=== PATIENT | female | born 1945 | race Caucasian/White ===

== ENCOUNTER 2024-06-20 12:50 | Outpatient (AMB) | payer MEDICARE, OTHER, SELFPAY ==
--- NOTE | 2024-06-20 12:53 | HO.SPINEOV ---
Vital Signs 06/20/24 13:02 Height 5 ft 5 in Weight 135 lb BMI 22.5 Intake Visit Reasons: lumbar radiculopathy Intake Note: Ms. Powell is here today c/o Low back pain. [employer] Required: No Allergies codeine Allergy (Severe, Verified 06/20/24 13:03) Confusion nitrofurantoin [From Macrobid] Allergy (Severe, Verified 06/20/24 13:03) Confusion Physical Exam Vital Signs: BMI result Body Mass Index 22.5 Assessment & Plan Assessment & Plan (1) Lumbar degenerative disc disease: Code(s): M51.369 - Other intervertebral disc degeneration, lumbar region without mention of lumbar back pain or lower extremity pain Category: Medical Plan Dear Dr Villa, Thank you for referring Mrs Powell to our office today. She is a very nice 78-year-old female presents to the office today for evaluation of chronic low back pain. The pain localizes itself over the lower lumbar region and radiates out laterally. She has a history of osteoarthritis, both hips and both shoulders replaced. She tells me that the pain started sometime around COVID in 2019 when her gym shut down and she had to become more less homebound because of lack of activities and options to go outside and exercise. At that time, the pain was manageable but now it has escalated to the point to when she is up and around doing things she is okay, but any bending activities or prolonged standing results in significant back pain. Also, she can be out walking and do her normal 3 mi walk, but when she goes to sit down she feels tremendous amounts of pain. She will also get pain that shoots down the front of her legs into her anterior tibial region toward the top of her foot. She can also get some tingling in her right leg as well. She saw Dr. Rodríguez at [facility] who told her he could go into a clean-up of some of the osteophytes but could not help her back pain. The back pain is the main pain generator for her a so she was somewhat frustrated at the conversation. She has been doing conservative management in the form of physical therapy, Celebrex medication trials, and cortisone injections. The cortisone injections were done at [facility] [employer] [facility]. It sounds like they did facet blocks and they were helpful for some time. She had an MRI done at [facility] in March showing stable degenerative disc disease at L4-5 and L5-S1. PMH: She is very healthy for her age, she is a bit of hypothyroidism, history of osteoarthritis with bilateral hip replacement, bilateral shoulder replacement, replacement of her thumb joint on the left hand, carpal tunnel surgery. Denies any history of heart attacks, strokes, vascular disease, pulmonary disease, liver or kidney problems, coagulopathy, cancer etc.. Social hx: She does use some CBD drops to help with the pain but does not smoke marijuana, use any THC gummies, tobacco or alcohol Medications: Levothyroxine, Celebrex, dicyclomine and amitriptyline Allergies: Macrobid and codeine Physical exam: Awake alert oriented no acute distress, she will stand up out of a chair on her own independently, ambulate around the room independently, strength and reflexes normal Imaging review: Lumbar MRI done at [facility] in March 2024 showing severe disc collapse at L4-5 with what appeared to be anterior bridging osteophytes, unable to tell if there is a complete fusion of the segment or not. She also has moderate to severe degeneration of the L5-S1 disc space. There is right L5 foraminal narrowing. There is no significant central canal narrowing. Impression: 78-year-old female history of osteoarthritis, has had progressively worsening lower lumbar pain radiating out to both sides now going on for maybe 5 years or more, steadily getting worse. There is a component of pain going down her anterior thighs into her anterior tibial region in the top of her feet. If she is up walking around she is okay but standing for any length of time or bending forward gives her tremendous amounts of pain. Also, when she is out walking and she finishes and sits down she will feel pain and fatigue in her legs. The patient was frustrated because her quality of life is suffering as she just wants to be more active but this set of symptoms does not allow her to do all the things she wants to do. She was seen at [facility] and offered what sounds like foraminotomy/decompression, but was told that it would not affect her back pain which is the main symptom that brings her to the office today. As above she has been through numerous rounds of conservative treatment. I reviewed her MRI and it does show severe disc collapse at L4-5 and to a slightly lesser degree L5-S1. There is straightening of the normal lordosis of the lumbar spine. It looks like there maybe an anterior bridging osteophyte at L4-5, it is not clear to me that this is not already auto fused. This needs investigating a little bit further, so I will order a noncontrast lumbar CT. Also, since so much of her pain is generated with flexed posture I will get standing flexion-extension x-rays. Once these things are done, I will see the patient back in the office with Dr. Sharma in evaluate to see if she is a surgical candidate. Thank you for allowing us to care for your patient. The total time spent with this visit with this patient was 45 minutes reviewing history, physical exam, lumbar imaging review, and implementation of treatment plan or further diagnostic testing Kendall Sharma MD,PhD [facility] Orders: Orders XR lumbar spine 4V min Today M51.369 - Other intervertebral disc degeneration, lumbar region without mention of lumbar back pain or lower extremity pain CT lumbar spine wo IV con Today M51.369 - Other intervertebral disc degeneration, lumbar region without mention of lumbar back pain or lower extremity pain Coding Level of Care Code New Pt Level 4 (50066) Diagnoses Lumbar degenerative disc disease M51.369
[2024-06-20 13:02] VITALS: BMI 22.5
--- OUTSIDE RECORDS SUMMARY | 2024-06-20 14:57 | XMS_ITS | Encounter Summary ---
Author Organization [facility] Address [address] [place] [address] Phone Care Team Providers Care Applications Support Specialist Name Role Phone Aida Gallardo DO Primary Care Provider [phone] Aida Gallardo DO Primary Care Provider Brenda Villa MD Primary Care Provider + Enrico Wagner MD Unavailable Brenda Villa MD Unavailable Brenda Villa MD Primary Care Provider + Encounter Details Date Type Department Care Team (Late st Contact Info) Description 05/08/2020 Ancillary Orders [facility] Department [address] [place] [id number] Abner Pabon, DO [address] [place] [phone] [email or web address] Pain in right hip Social History Tobacco Use Types Packs/Day Years Used Date Smoking Tobacco: Never Smokeless Tobacco: Never Sex and Gender Information Value Date Recorded Sex Assigned at Not on file Gender Identity Not on file Sexual Orientation Not on file documented as of this encounter Plan of Treatment Upcoming Encounters Date Type Department Care Team (Late Contact Info) Description 04/21/2025 10:15 AM EST Appointment [facility], Bone [address] [address] Brenda Villa MD [address] [place] [address], [address] [place] [address] [email or web address] documented as of this encounter Results * XR HIP 2 VW RIGHT PLUS PELVIS (05/10/2020 11:58 AM EST) Anatomical Region Laterality Modality Hip, Pelvis Computed Radiogr aphy 05/10/2020 12:1 8 PM EST Impressions 05/10/2020 12:20 PM EST 1.No finding to account for right hip pain. 2.Stable severe lower lumbar spine disc disease. Narrative 05/10/2020 12:20 PM EST HISTORY: ??As above. COMPARISON: SI joint x-rays 02/10/2018. RIGHT HIP/PELVIC RADIOGRAPH FINDINGS: 3 images obtained. Chronic osteopenia. Stable bilateral total hip replacements. Normal alignment. No evidence of loosening. Stable severe L4-5 and L5-S1 disc disease with facet arthropathy. No acute fracture or destructive bone lesions. No soft tissue swelling. Procedure Note Enrico Garcia MD - 05/10/2020 HISTORY: As above. COMPARISON: SI joint x-rays 02/10/2018. RIGHT HIP/PELVIC RADIOGRAPH FINDINGS: 3 images obtained. Chronic osteopenia. Stable bilateral total hip replacements. Normalalignment. No evidence of loosening. Stable severe L4-5 and L5-S1 discdisease with facet arthropathy. No acute fracture or destructive bonelesions. No soft tissue swelling. IMPRESSION: 1.No finding to account for right hip pain. 2.Stable severe lower lumbar spine disc disease. Abner Pabon DO IMG XR PELVIS documented in this encounter Visit Diagnoses Diagnosis Pain in right hip Pain in right hip documented in this encounter Care Teams Applications Support Specialist Relationship Specialty Start Date End Date Aida Gallardo DO [address] [place] [phone] [email or web address] PCP - General Internal Medicine 01/29/17 05/19/21 Aida Gallardo DO [address] [place] [phone] [email or web address] PCP - General Internal Medicine 05/20/21 06/03/21 Brenda Villa MD [address] [place] [phone] PCP - General Family Medicine 06/04/21 08/18/23 Brenda Villa MD [address] [place] [address] [address] [place] [address] PCP - General Family Medicine 08/19/23 Enrico Wagner MD [address] [place] [id number] [email or web address] 07/02/21 Brenda Villa MD [address] [place] [address] [address] [place] [address] [email or web address] Insurance Assigned Provider 07/11/23 documented as of this encounter Additional Source Comments The information contained in this document represents components of the legal health record. It is not the complete legal health record.[facility]
--- OUTSIDE RECORDS SUMMARY | 2024-06-20 14:57 | XMS_ITS | Referral Summary ---
Author Organization [facility] Address [address] [place] [address] Care Team Providers Care Attendance Officer Name Role Phone Aida Gallardo Primary Care Provider [phone] Allergies Active Allergy Reactions Criticality Noted Date Comments Codeine Nausea 06/01/2018 Nitrofurantoin Monohyd/M-Cryst Fever 08/08 Medications amitriptyline (ELAVIL) 10 mg tablet 1 tablet qd Active celecoxib (CeleBREX) 100 mg capsule TAKE 2 CAPSULES (200 MG TOTAL) BY MOUTH 2 (TWO) TIMES A DAY. 3 9 Active vitamin D3 1,000 unit capsule Take 1 capsule by mouth daily. Active dicyclomine (BENTYL) 10 mg capsule Take 10 mg by mouth daily. Active levothyroxine (SYNTHROID, LEVOTHROID) 50 mcg tablet Take 1 tablet by mouth daily. Active multivitamin,tx -iron-minerals tablet Take 1 tablet by mouth daily. Active safflower oil-linoleic acid,co 1,000 mg capsule Take 1,000 capsules by mouth daily. Active VITAMIN B COMPLEX ORAL Take 1 tablet by mouth daily. Active levothyroxine (SYNTHROID, LEVOTHROID) 25 mcg tablet Take 25 mcg by mouth daily. 1 Active triamcinolone acetonide (KENALOG) 0.025% cream PLEASE SEE ATTACHED FOR DETAILED DIRECTIONS 1 Active Active Problems Problem Noted Date Diagnosed Date Lumbar spondylosis 06/25/2021 Primary osteoarthritis of both hips 03/29/2019 Primary osteoarthritis of both shoulders 019 Social History Tobacco Use Types Packs/Day Years Used Date Smoking Tobacco: Never Smokeless Tobacco: Never Alcohol Use Standard Drinks/Week Comments Yes 0 (1 standard drink = 0.6 oz pur e alcohol) rare Comments Unknown Sex and Gender Information Value Date Recorded Sex Assigned at Female 10/28/2020 10:03 AM EDT Legal Sex Female 6:44 AM EDT Gender Identity Female 10/28/2020 10:03 AM EDT Sexual Orientation Straight 10/28/2020 10 :03 AM EDT Last Filed Vital Signs Vital Sign Reading Time Taken Comments Blood Pressure - - Pulse - - Temperature 36.2 ??C (97.2 ??F) 10/31/2020 1:38 PM ED T Respiratory Rate - - Oxygen Saturation - - Inhaled Oxygen Concentration - - Weight 66.7 kg (147 lb) 06/25/2021 1:21 PM EDT Height 166.6 cm (5' 5.6 ) 06/25/2021 1:21 PM EDT Body Mass Index 24.02 06/25/2021 1:21 PM EDT Plan of Treatment Not on file Insurance MEDICARE [facility] MEDICARE Care Teams Attendance Officer Relationship Specialty Start Date End Date Aida Gallardo [address] [place] [phone] PCP - General Internal Medicine 02/09/19
--- OUTSIDE RECORDS SUMMARY | 2024-06-20 14:57 | XMS_ITS | Clinical Summary ---
Author Organization [facility] Address [address] [place] [address] Care Team Providers Care Pot Annealer Name Role Phone Aida Gallardo Primary Care Provider [phone] Allergies Active Allergy Reactions Criticality Noted Date [...] 06/25/2021 1:21 PM EDT Plan of Treatment Health Maintenance Due Date Last Done Comments Hepatitis C Screening 1945 Medicare AWV 1945 Osteoporosis Screening 1994 Zoster Vaccines (1 of 2) 1994 RSV Vaccine (60+ years old and patients) (1 - 1-dose 75+ series) 11/06/2019 COVID-19 Vaccine ( - season) 2023 02/06/2021, 06/14/2020, 05/17/2020 Influenza Vaccine (#1) 2023 2, 01/05/2021, 01/09/2020, Additional history exists Alcohol/Substance Use Screening 04/06/2024 Depression Screening and Follow-Up 04/06/2024 Health Care Proxy Review 04/06/2024 Social Drivers of Health Annual Screening 04/06/2024 DTaP,Tdap,and Td Vaccines (3 - Td or Tdap) 06/01/2029 06/01/2019, 04/10/2009, 04/06/1998 Pneumococcal Vaccine: 50+ Years Completed 01/29/2022 Hepatitis B Vaccines Aged Out No long er eligible based on patient's age to complete this topic Insurance MEDICARE [facility] [address] MEDICARE Care Teams Pot Annealer Relationship Specialty Start Date End Date Aiad Gallardo [address] [place] [phone] PCP - General Internal Medicine 02/09/19
--- OUTSIDE RECORDS SUMMARY | 2024-06-20 14:57 | XMS_ITS | Encounter Summary ---
Author Organization [facility] Address [address] [place] [address] Phone Care Team Providers Care Data Analytics Specialist Name Role Phone Enrico Wagner MD Unavailable Brenda Villa MD Unavailable [phone] Brenda Villa MD Primary Care Provider + Encounter Details Date Type Department Care Team (Latest Contact Info) Description 05/30/2024 1:38 PM EST - 05/30/2024 11:59 PM EST Hospital Encounter [facility] - [address] [place] [address] Brenda Villa MD [address] [place] [address], [facility] [address] [place], [place] [id number] [email or web address] Discharge Disposition: Home or Self Care Social History Tobacco Use Types Packs/Day Years Used Date Smoking Tobacco: Never Smokeless Tobacco: Never Tobacco Cessation:Counseling Given: Not Answered Alcohol Use Standard Drinks/Week Comments Not Currently 0 (1 standard drink = 0.6 oz pure alcohol) I have a drink on my birthday Child or Family Care Answer Date Record ed Do you have problems with on e of the following making it difficult for you to work, study, or receive health care? No 07/01/2021 Education Answer Date Recorded Are you interested in more education? Not on josee e 07/03/2023 Are you concerned about learning? Not on file 07/03/2023 No 07/03/2023 No 07/03/2023 Food Answer Date Recorded Within the past 6 months we worried whether our food would run out before we got money to buy more. Never True 07/01/2021 Within the past 6 months the food we bought just didn't last and we didn't have enough money to get more. Never True Residential Stability Answer Date Recor ded What is your housing situation today? I have verna sing 07/01/2021 How many times have you move d in the past 12 months? Zero (I did not move) 07/01/2021 Paying for Meds Answer Date Recorded Do you have trouble paying for medicines? No 07/01/2021 Paying Utility Bills Answer Date Record ed Do you have trouble paying your heating or elect ricity bill? No 07/01/2021 Transportation Answer Date Recorded Has the lack of transportati on kept you from medical appointments or from getting medications? No 07/01/2021 Unemployment Answer Date Recorded Are you currently unemployed or working on a part-time or temporary basis, and looking for work? I choose not to answer 07/01/2021 Digital Access Answer Date Recorded No 08/30/2022 No 08/30/2022 Reliable internet access at home? Not on file 08/30/2022 Device with a working camera? 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 b complex vitamins tablet Take 1 tablet by mouth daily. BIOTIN ORAL Take 1,000 mcg by mouth daily. celecoxib (CELEBREX) 200 MG capsuleIndications:Polya rticular osteoarthritis TAKE 1 CAPSULE BY MOUTH EVERY DAY 90 capsule 3 04/12/2024 cholecalciferol, vitamin D3, 25 mcg (1,000 unit) capsule Take 1 capsule by mouth daily. ciclopirox (PENLAC) 8 % solutionIndications:Onyc homycosis Apply topically nightly at bedtime. Apply over nail and surrounding skin. Apply daily over previous coat. After seven (7) days, may remove with alcohol and continue cycle. 6.6 mL 5 07/07/2023 dicyclomine (BENTYL) 10 MG capsuleIndications:Irrit able bowel syndrome with both constipation and diarrhea take 1 capsule by mouth every day 90 capsule 3 06/17/2023 levothyroxine (SYNTHROID, LEVOTHROID) 50 MCG tabletIndications:Acquir ed hypothyroidism TAKE 1 TABLET BY MOUTH EVERY DAY 90 tablet 3 05/24/2024 magnesium oxide 500 mg Cap Take 1 tablet by mouth daily. Medication-Free Text Cologen Powder multivitamins with minerals-iron (THERA-VM) Tab Take 1 tablet by mouth daily. omega 3-imq-oxd-fish oil 1,000 mg (120 mg-180 mg) Cap Take 1 capsule by mouth daily. safflower oil-linoleic acid,co 1,000 mg Cap Take 1,000 capsules by mouth daily. triamcinolone acetonide (NASACORT NASL) 1 spray by Nasal route as needed. documented as of this encounter Plan of Treatment Upcoming Encounters Date Type Department Care Team (Late st Contact Info) Description 04/21/2025 10:15 AM EST Appointment [facility], Bone Density - [address] [address] Brenda Villa MD [address] [place] [address], [address] [place] [address] [email or web address] documented as of this encounter Procedures Procedure Name Priority Date/Time Associated Diagnosis Comments BI MAMMOGRAM SCREENING WITH TOMOSYNTHESIS WITH CAD (BILATERAL) Routine 05/30/2024 2:12 PM EST Breast screening documented in this encounter Results * BI MAMMOGRAM SCREENING WITH TOMOSYNTHESIS WITH CAD (BILATERAL) (05/30/2024 2:12 PM EST) Anatomical Region Laterality Modality Breast Left, Breast Right, Breast Bilateral Bila teral Mammography 06/01/2024 8:07 AM EST Impressions 06/01/2024 8:08 AM EST No mammographic evidence of malignancy in either breast. Annual screening mammography is recommended. BI-RADS 1 NEGATIVE The patient will be notified of the results and recommendations. Narrative 06/01/2024 8:08 AM EST BI MAMMOGRAM SCREENING WITH TOMOSYNTHESIS WITH CAD (BILATERAL) Additional patient information: Screening. COMPARISON: Comparison is made with relevant prior imaging. Breast composition: The breast tissue is heterogeneously dense which may obscure small masses. FINDINGS: No abnormal masses, suspicious calcifications, or other significant findings are identified mammographically in either breast. Procedure Note Lelia Polk MD - 06/01/2024 BI MAMMOGRAM SCREENING WITH TOMOSYNTHESIS WITH CAD (BILATERAL) Additional patient information: Screening. COMPARISON: Comparison is made with relevant prior imaging. Breast composition: The breast tissue is heterogeneously dense which mayobscure small masses. FINDINGS: No abnormal masses, suspicious calcifications, or other significantfindings are identified mammographically in either breast. IMPRESSION: No mammographic evidence of malignancy in either breast. Annual screening mammography is recommended. BI-RADS 1 NEGATIVE The patient will be notified of the results and recommendations. Brenda Villa MD IMG MG EXAMS documented in this encounter Visit Diagnoses Diagnosis Breast screening Breast screening, unspecified documented in this encounter Additional Health Concerns Assessment Noted Time PHQ-2 Depression Total Score: 1 01/27/20 22 9:24 AM EDT documented as of this encounter Care Teams Data Analytics Specialist Relationship Specialty Start Date End Date Brenda Villa MD [address] [place] [address], [address] [place] [address] PCP - General Family Medicine 08/19/23 Enrico Wagner MD [email or web address] Consulting Provider Rheumatology 07/02/21 Brenda Villa MD [address] [place] [address], [address] [place] [address] [email or web address] Insurance Assigned Provider 07/11/23 documented as of this encounter Additional Source Comments The information contained in this document represents components of the legal health record. It is not the complete legal health record.[facility]
--- OUTSIDE RECORDS SUMMARY | 2024-06-20 14:57 | XMS_ITS | Encounter Summary ---
Author Organization Located Within [facility] Address [address] [place] [address] Phone Care Team Providers Care Landscaping Specialist Name Role Phone Enrico Wagner MD Unavailable Brenda Villa MD Unavailable [phone] Brenda Villa MD Primary Care Provider + Encounter Details Date Type Department Care Team (Latest Contact Info) Description 06/14/2024 11:19 AM EDT - 06/14/2024 11:59 PM EDT Hospital Encounter [facility] [address] [place] [address] Brenda Villa MD [address] [place] [address], [address] [place], [place] [phone] Discharge Disposition: Home or Self Care Social History Tobacco Use Types Packs/Day Years Used Date Smoking Tobacco: Never Smokeless Tobacco: Never Alcohol Use Standard Drinks/Week Comments Not Currently [...] your housing situation today? I have verna menjivar 07/01/2021 How many times have you move [...] and continue cycle. 6.6 mL 5 07/07/2023 clobetasol (TEMOVATE) 0.05 % ointmentIndications:Onyc hoschizia Apply topically 2 (two) times a day as needed (hand rash). 60 g 1 06/10/2024 dicyclomine (BENTYL) 10 MG capsuleIndications:Irrit able bowel [...] Take 1 tablet by mouth daily. omega 7-jul-jhm-fish oil 1,000 mg (120 mg-180 mg) Cap Take 1 capsule by mouth daily. safflower oil-linoleic acid,co 1,000 mg Cap Take 1,000 capsules by mouth daily. triamcinolone acetonide (NASACORT NASL) 1 spray by Nasal route as needed. documented as of this encounter Plan of Treatment Upcoming Encounters Date Type Department Care Team (Late st Contact Info) Description 04/21/2025 10:15 AM EST Appointment [facility], Bone [address] [address] Brenda Villa MD [address] [place] [address], [address] [place] [address] [email or web address] documented as of this encounter Procedures Procedure Name Priority Date/Time Associated Diagnosis Comments COMPREHENSIVE METABOLIC PANEL Routine 06/14/2024 11:20 AM EDT Encounter for monitoring chronic NSAID therapy CBC AND DIFFERENTIAL Routine 06/14/2024 11:20 AM EDT Encounter for monitoring chronic NSAID therapy documented in this encounter Results * (ABNORMAL) Comprehensive metabolic panel (06/14/2024 11:20 AM EDT) SODIUM 139 133 - 146 mmol/L [facility] POTASSIUM 5.0 3.3 - 5.1 mmol/L [facility] CHLORIDE 104 96 - 108 mmol/L [facility] CO2 30 21 - 35 mmol/L [facility] BUN 29(H) 6 - 19 mg/dL [facility] CREATININE 0.70 0.5 - 1.5 mg/dL [facility] GLUCOSE 95 70 - 99 mg/dL [facility] ALBUMIN 4.3 3.9 - 4.8 g/dL [facility] TOTAL PROTEIN 7.0 6.5 - 8.0 g/dL [facility] CALCIUM 9.4 8.4 - 10.3 mg/dL [facility] ALKALINE PHOSPHATASE 74 39 - 117 U/L [facility] TOTAL BILIRUBIN 0.4 0.0 - 1.2 mg/dL [facility] AST 31 0 - 37 U/L [facility] ALT 21 0 - 40 U/L [facility] GLOBULIN 2.7 1 - 4.8 g/dL [facility] EGFR 88 >59 mL/min/1.7 3m2 [facility] Comment:Estimated glomerular filtration rate calculated using the CKD-EPI refit equation. ANION GAP 10 10 - 20 mmol/L [facility] Blood 06/14/2024 11:2 0 AM EDT 06/14/2024 11:22 AM EDT Brenda Villa MD LAB BLOOD ORDERA BLES Performing Organization Address City/State/[facility] Co de Phone Number [address] [address] * CBC and differential (06/14/2024 11:20 AM EDT) WBC 8.58 4.00 - 11.00 K/uL [facility] RBC 4.62 4.00 - 5.20 M/uL [facility] HGB 14.3 12.0 - 16.0 g/dL [facility] HCT 43.7 36.0 - 46.0 % [facility] PLT 224 150 - 450 K/uL [facility] MCV 94.6 80.0 - 100.0 fL [facility] MCH 31.0 27.0 - 31.0 pg [facility] MCHC 32.7 32.0 - 36.0 g/dL [facility] RDW 12.9 11.5 - 14.5 % [facility] MPV 10.7 8.4 - 12.0 fL [facility] NRBC 0.00 0.00 /100 WBCs [facility] ABSOLUTE NRBC 0.00 0.00 K/uL [facility] DIFF METHOD Auto [facility] NEUTS 54.9 48.0 - 76.0 % [facility] LYMPHS 32.9 18.0 - 41.0 % [facility] MONOS 7.6 4.0 - 11.0 % [facility] EOS 3.3 0.0 - 5.0 % [facility] BASOS 1.0 0.0 - 1.5 % [facility] Granulocytes, immature (%) 0.3 0.0 - 0.9 % [facility] ABSOLUTE NEUTS 4.71 1.92 - 7.60 K/uL [facility] ABSOLUTE LYMPHS 2.82 0.72 - 4.10 K/uL [facility] ABSOLUTE MONOS 0.65 0.16 - 1.10 K/uL [facility] ABSOLUTE EOS 0.28 0.00 - 0.50 K/uL [facility] ABSOLUTE BASOS 0.09 0.00 - 0.15 K/uL [facility] Granulocytes, immature 0.03 0.00 - 0.09 K/uL [facility] Blood 06/14/2024 11:2 0 AM EDT 06/14/2024 11:22 AM EDT Brenda Villa MD LAB BLOOD ORDERA BLES [facility] [address] [place], [place] [id number] documented in this encounter Visit Diagnoses Diagnosis Encounter for monitoring chronic NSAID therapy documented in this encounter Additional Health Concerns Assessment Noted Time PHQ-2 Depression Total Score: 1 01/27/20 22 9:24 AM EDT documented as of this encounter Care Teams Landscaping Specialist Relationship Specialty Start Date End Date Brenda Villa MD [address] [place] [address] [email or web address] - General Family Medicine 08/19/23 Enrico Wagner MD [email or web address] Consulting Provider Rheumatology 07/02/21 Brenda Villa MD [address] [place] [address] [email or web address] Insurance Assigned Provider 07/11/23 documented as of this encounter Additional Source Comments The information contained in this document represents components of the legal health record. It is not the complete legal health record.Located Within [facility]
--- OUTSIDE RECORDS SUMMARY | 2024-06-20 14:57 | XMS_ITS | Encounter Summary ---
Author Organization [facility] Address [address] [place] [address] Phone Care Team Providers Care Phlebotomist Associate Name Role Phone Aida Gallardo DO Primary Care Provider Aida Gallardo DO Primary Care Provider [phone] Brenda Villa MD Primary Care Provider + Enrico Wagner MD Unavailable Brenda Villa MD Unavailable Brenda Villa MD Primary Care Provider + Reason for Referral * MRI/CAT Scan - Closed Specialty Diagnoses / Procedures Referred By Quentin khan Referred To Contact Radiology Diagnoses Radiculopathy, lumbar region Procedures MRI Lumbar Spine Abner Pabon, DO [address] [place] [address] Referral ID Status Reason Start Date Expiration Date Visits Re quested Visits Authorized [id number] Closed 04/04/2020 04/04/2021 1 1 Encounter Details Date Type Department Care Team (Latest Contact Info) Description 04/04/2020 Transcribe Orders Virtual Department [address] [place] [address] Abner Pabon, DO [address] [place] [phone] [email or web address] Radiculopathy, lumbar region (Primary Dx) Social History Tobacco Use Types Packs/Day Years Used Date Smoking Tobacco: Never Smokeless Tobacco: Never Sex and Gender Information Value Date Recorded Sex Assigned at Not on file Gender Identity Not on file Sexual Orientation Not on file documented as of this encounter Plan of Treatment Upcoming Encounters Date Type Department Care Team (Late st Contact Info) Description 04/21/2025 10:15 AM EST Appointment [facility], Bone Density [address] [address] Brenda Villa MD [address] [place] [address], [facility] [address] [place] [address] [email or web address] documented as of this encounter Results * XR LUMBOSACRAL SPINE 4 OR MORE VIEWS (04/10/2020 12:34 PM EST) Anatomical Region Laterality Modality L-spine Radiographic Racheal ging 04/10/2020 1:02 PM EST Narrative 04/10/2020 1:09 PM EST TECHNIQUE: XR LUMBOSACRAL SPINE 4 OR MORE VIEWS CLINICAL HISTORY: Chronic lower back pain. FINDINGS: There is minimal bi-convex lumbar scoliosis. There are no lumbar vertebral body compression fractures. There is severe loss of height of the L4-L5 and L5-S1 intervertebral disc spaces, with moderately large anterior vertebral endplate osteophytes and small posterior vertebral endplate osteophytes. There is minimal L4 on L5 vertebral body degenerative retrolisthesis. There is moderate to severe L4-L5 and L5-S1 level facet arthropathy with bilateral neural foraminal narrowing. There are partly visualized hip joint replacements. Please see separate report for lumbar spine MRI examination performed on this same date. CONCLUSION: Mild biconvex lumbar scoliosis. Severe loss of height L4-L5 and L5-S1 intervertebral disc spaces. L4-L5 and L5-S1 level facet arthropathy with moderate to severe bilateral neural foraminal narrowing. Procedure Note Isaias Diamond MD - 04/10/2020 TECHNIQUE: XR LUMBOSACRAL SPINE 4 OR MORE VIEWS CLINICAL HISTORY: Chronic lower back pain. FINDINGS: There is minimal bi-convex lumbar scoliosis. There are no lumbar vertebral body compression fractures. There is severe loss of height of the L4-L5 and L5-S1 intervertebral discspaces, with moderately large anterior vertebral endplate osteophytes andsmall posterior vertebral endplate osteophytes. There is minimal L4 on L5 vertebral body degenerative retrolisthesis. There is moderate to severe L4-L5 and L5-S1 level facet arthropathy withbilateral neural foraminal narrowing. There are partly visualized hip joint replacements. Please see separate report for lumbar spine MRI examination performed onthis same date. CONCLUSION: Mild biconvex lumbar scoliosis. Severe loss of height L4-L5 and L5-S1 intervertebral disc spaces. L4-L5 and L5-S1 level facet arthropathy with moderate to severe bilateralneural foraminal narrowing. Abner Pabon DO IMG XR SPINE * MRI LUMBAR SPINE (NEURO) WITHOUT CONTRAST (04/10/2020 11:51 AM EST) Anatomical Region Laterality Modality L-spine Magnetic Resonan ce 04/10/2020 11:5 8 AM EST Narrative 04/10/2020 12:18 PM EST TECHNIQUE: MRI LUMBAR SPINE (NEURO) WITHOUT CONTRAST CLINICAL HISTORY: Lower back pain. Pain radiating to right lower extremity and left lower extremity. Numbness and tingling bilateral feet. COMPARISON: Lumbar spine MRI examination dated 06/17/2018. FINDINGS: Conus medullaris is normal. There are no lumbar vertebral body compression fractures. There is degenerative decreased water content of lumbar intervertebral discs and there is mild lower lumbar levoconvex scoliosis. L1 and L2 levels: Minimal posterior disc bulges. Mild facet arthropathy. L3-4 level: No interval change in mild grade 1 L3 and L4 vertebral body degenerative anterolisthesis and small broad-based posterior and slightly left posterior lateral disc protrusion with mild impression upon the thecal sac and contact with extraforaminal left L3 nerve root. Moderate facet arthropathy with mild central canal stenosis. Moderate bilateral neural foraminal narrowing with encroachment upon exiting left L3 nerve root. There is severe loss of height of L4-L5 and L5-S1 intervertebral disc spaces, as on the comparison exam, with moderate degenerative irregularities adjacent vertebral endplates and mild to moderate increase in reactive degenerative bone marrow edema of corresponding vertebral bodies. L4-5 level: No interval change in mild L4 on L5 vertebral body retrolisthesis which along with small posterior vertebral endplate osteophyte and small posterior disc protrusion results in mild to moderate flattening mass effect on the thecal sac. Moderate facet arthropathy without central canal stenosis, although with mild narrowing of lateral recess. Moderate right greater than left neural foraminal narrowing with bilateral encroachment upon exiting intraforaminal L4 nerve roots. L5-S1 level: Small broad-based posterior disc protrusion and posterior vertebral endplate osteophyte with mild impression upon the thecal sac, entering in contact with S1 nerve root sleeves. Severe right and moderate left arthropathy with mild narrowing of lateral recesses without definite compression of proximal S1 nerve roots. Severe bilateral neural foraminal narrowing with bilateral compression of exiting intraforaminal L5 nerve roots. Moderate reactive bone marrow edema of right L5 pedicle. No definite evidence of lumbar spondylolysis. 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 CONCLUSION: Moderately severe lumbar spondylosis with severe loss of height of L4-L5 and L5- S1 intervertebral disc spaces, without interval change since the comparison examination dated 06/17/2018. L5-S1 level: Small posterior disc protrusion and posterior vertebral endplate osteophyte. Severe right and moderate left facet arthropathy. Severe neural foraminal narrowing. L4-5 level: Mild L4 and L5 vertebral body with retrolisthesis and small posterior disc protrusion and osteophyte with mild to moderate impression upon the thecal sac. Moderate facet arthropathy with mild narrowing of lateral recesses. Moderate right greater than left neural foraminal narrowing. Additional findings, as described. Procedure Note Isaias Diamond MD - 04/10/2020 TECHNIQUE: MRI LUMBAR SPINE (NEURO) WITHOUT CONTRAST CLINICAL HISTORY: Lower back pain. Pain radiating to right lower extremityand left lower extremity. Numbness and tingling bilateral feet. COMPARISON: Lumbar spine MRI examination dated 06/17/2018. FINDINGS: Conus medullaris is normal. There are no lumbar vertebral body compressionfractures. There is degenerative decreased water content of lumbar intervertebraldiscs and there is mild lower lumbar levoconvex scoliosis. L1 and L2 levels: Minimal posterior disc bulges. Mild facet arthropathy. L3-4 level: No interval change in mild grade 1 L3 and L4 vertebral bodydegenerative anterolisthesis and small broad-based posterior and slightlyleft posterior lateral disc protrusion with mild impression upon thethecal sac and contact with extraforaminal left L3 nerve root. Moderatefacet arthropathy with mild central canal stenosis. Moderate bilateralneural foraminal narrowing with encroachment upon exiting left L3 nerveroot. There is severe loss of height of L4-L5 and L5-S1 intervertebral discspaces, as on the comparison exam, with moderate degenerativeirregularities adjacent vertebral endplates and mild to moderate increasein reactive degenerative bone marrow edema of corresponding vertebralbodies. L4-5 level: No interval change in mild L4 on L5 vertebral bodyretrolisthesis which along with small posterior vertebral endplateosteophyte and small posterior disc protrusion results in mild to moderateflattening mass effect on the thecal sac. Moderate facet arthropathywithout central canal stenosis, although with mild narrowing of lateralrecess. Moderate right greater than left neural foraminal narrowing withbilateral encroachment upon exiting intraforaminal L4 nerve roots. L5-S1 level: Small broad-based posterior disc protrusion and posteriorvertebral endplate osteophyte with mild impression upon the thecal sac,entering in contact with S1 nerve root sleeves. Severe right and moderateleft arthropathy with mild narrowing of lateral recesses without definitecompression of proximal S1 nerve roots. Severe bilateral neural foraminalnarrowing with bilateral compression of exiting intraforaminal L5 nerveroots. Moderate reactive bone marrow edema of right L5 pedicle. No definite evidence of lumbar spondylolysis. 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 CONCLUSION: Moderately severe lumbar spondylosis with severe loss of height of L4-L5and L5- S1 intervertebral disc spaces, without interval change since thecomparison examination dated 06/17/2018. L5-S1 level: Small posterior disc protrusion and posterior vertebralendplate osteophyte. Severe right and moderate left facet arthropathy.Severe neural foraminal narrowing. L4-5 level: Mild L4 and L5 vertebral body with retrolisthesis and smallposterior disc protrusion and osteophyte with mild to moderate impressionupon the thecal sac. Moderate facet arthropathy with mild narrowing oflateral recesses. Moderate right greater than left neural foraminalnarrowing. Additional findings, as described. Abner Pabon IMG MR [facility] documented in this encounter Visit Diagnoses Diagnosis Radiculopathy, lumbar region- Primary Thoracic or lumbosacral neuritis or radiculitis, unspecified Radiculopathy, lumbar region Thoracic or lumbosacral neuritis or radiculitis, unspecified Radiculopathy, lumbar region Thoracic or lumbosacral neuritis or radiculitis, unspecified documented in this encounter Care Teams Phlebotomist Associate Relationship Specialty Start Date End Date Aida Gallardo DO [address] [place] [id number] [email or web address] - General Internal Medicine 01/29/17 05/19/21 Aida Gallardo DO [address] [place] [id number] [email or web address] - General Internal Medicine 05/20/21 06/03/21 Brenda Villa MD [address] [place] [phone] [email or web address] PCP - General Family Medicine 06/04/21 08/18/23 Brenda Villa MD [address] [place] [address] [address] [place] [address] [email or web address] PCP - General Family Medicine 08/19/23 Enrico Wagner MD [address] [place] [address] [email or web address] Consult[employer] Provider Rheumatology 07/02/21 Brenda Villa MD [address] [place] [address] [address] [place] [address] [email or web address] Insurance Assigned Provider 07/11/23 documented as of this encounter Additional Source Comments The information contained in this document represents components of the legal health record. It is not the complete legal health record.[facility]
--- OUTSIDE RECORDS SUMMARY | 2024-06-20 14:57 | XMS_ITS | Encounter Summary ---
Author Organization [facility] Address [address] [place] [address] Phone Care Team Providers Care Air Brake Tester Name Role Phone Enrico Wagner MD Unavailable Brenda Villa MD Unavailable Brenda Villa MD Primary Care Provider + Reason for Referral * Consultation (Within 1 month) - Authorized Specialty Diagnoses / Procedures Referred By Contac t Referred To Contact Diagnoses Lumbar radiculopathy, chronic Brenda Villa MD [address] [facility] [address] [place] [address] Email: [email or web address] James Sharma MD [address] [place] [address] Referral ID Status Reason Start Date Expiration Date V isits Requested Visits Authorized [id number] Authorized 06/10/2024 06/10/2025 1 1 Reason for Visit * Reason Comments Follow Up Visit Spine problems Encounter Details Date Type Department Care Team ([facility] st Contact Info) Description 06/10/2024 2:15 PM EST Office Visit [facility] [address] [place], [place] [phone] Brenda Villa MD [address] [facility] 7 [place] [address] [email or web address] Lumbar radiculopathy, chronic (Primary Dx); Onychoschizia; Osteopenia, unspecified location; Encounter for monitoring chronic NSAID therapy Social History Tobacco Use Types Packs/Day Years [...] with a working camera? Not on file 05 / Sex and Gender Information Value Date Recorded Sex Assigned at Not on file Gender Identity Not on file Sexual Orientation Not on file documented as of this encounter Last Filed Vital Signs Vital Sign Reading Time Taken Comments Blood Pressure 136/82 06/10/2024 2:15 PM EST Pulse 52 06/10/2024 2:15 PM EST Temperature 36.1 ??C (97 ??F) 06/10/2024 2:15 PM EST Respiratory Rate - - Oxygen Saturation 100% 06/10/2024 2:15 PM EST Inhaled Oxygen Concentration - - Weight - - Height - - Body Mass Index - - documented in this encounter Progress Notes * Brenda Villa MD - 06/10/2024 2:15 PM EST Chief Complaint Patient presents with Follow Up Visit Spine problems Assessment & Plan: Assessment & Plan Lumbar radiculopathy, chronic Persistent radicular pain Second opinion NS referral placed Orders: Ambulatory referral to External Neurosurgery 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 Osteopenia, unspecified location Discussed osteoporosis and treatment If elevated fracture risk will plan referral to endocrine as pt would prefer to avoid bisphosphonates DEXA re-entered Orders: DXA Monitoring; Future Encounter for monitoring chronic NSAID therapy Orders: Comprehensive metabolic panel; Future CBC and differential; Future Subjective: HPI Back pain: Saw Dr. Rodríguez/GOKUL Concerned about recovery time for his proposed surgicalplan Would like second opinion Dr. Sharma for less invasie options Planing to do more extensive HEP at home on new gym equipment to help manage Did not schedule DEXA. Not sure if she would treat Review of Systems See hPI Objective: Vitals: 06/10/24 1415 BP: 136/82 Pulse: (!) 52 Temp: 36.1 ??C (97 ??F) SpO2: 100% Physical Exam Vitals and nursing note reviewed. Constitutional: General: She is not in acute distress. Appearance: Normal appearance. HENT: Head: Normocephalic and atraumatic. Eyes: General: No scleral icterus. Conjunctiva/sclera: Conjunctivae normal. Pulmonary: Effort: Pulmonary effort is normal. Skin: General: Skin is warm and dry. Neurological: General: No focal deficit present. Mental Status: She is alert and oriented to person, place, and time. Psychiatric: Mood and Affect: Mood normal. Behavior: Behavior normal. I spent a total time of 30 minutes was spent on the care of this patient between gnwa-bh-bblw time and non esop-fe-vqwm care including review of prior records, prior labs and imaging, documentation and coordination of follow up care. documented in this encounter Plan of Treatment Upcoming Encounters Date Type Department Care Team (Late st Contact Info) Description 04/21/2025 10:15 AM EST Appointment [facility], Bone Density [address] [address] Brenda Villa MD [address] [place] [address], [address] [place] [address] [email or web address] Scheduled Orders Name Type Priority Associated Diagnoses Orde r Schedule DXA Monitoring Imaging Routine Osteopenia, unspecified location Expected: 06/24/2024, Expires: 06/10/2026 Scheduled Referrals Name Type Priority Associated Diagnoses Order Schedule Ambulatory referral to External Neurosurgery Outpatient Referral Routine Lumbar radiculopathy, chronic Ordered: 06/10/2024 documented as of this encounter Results * CBC and differential (06/14/2024 11:20 AM EDT) WBC 8.58 4.00 - 11.00 K/uL [facility] RBC 4.62 4.00 - 5.20 M/uL [facility] HGB 14.3 12.0 - 16.0 g/dL [facility] HCT 43.7 36.0 - 46.0 % [facility] PLT 224 150 - 450 K/uL [facility] MCV 94.6 80.0 - 100.0 fL [facility] MCH 31.0 27.0 - 31.0 pg [facility] MCHC 32.7 32.0 - 36.0 g/dL [facility] RDW 12.9 11.5 - 14.5 % [facility] MPV 10.7 8.4 - 12.0 fL [facility] NRBC 0.00 0.00 /100 WBCs [facility] ABSOLUTE NRBC 0.00 0.00 K/uL [facility] DIFF METHOD Auto [facility] NEUTS 54.9 48.0 - 76.0 % [facility] LYMPHS 32.9 18.0 - 41.0 % [facility] MONOS 7.6 4.0 - 11.0 % [facility] EOS 3.3 0.0 - 5.0 % [facility] BASOS 1.0 0.0 - 1.5 % [facility] Granulocytes, immature (%) 0.3 0.0 - 0.9 % [facility] ABSOLUTE NEUTS 4.71 1.92 - 7.60 K/uL [facility] ABSOLUTE LYMPHS 2.82 0.72 - 4.10 K/uL [facility] ABSOLUTE MONOS 0.65 0.16 - 1.10 K/uL [facility] ABSOLUTE EOS 0.28 0.00 - 0.50 K/uL [facility] ABSOLUTE BASOS 0.09 0.00 - 0.15 K/uL [facility] Granulocytes, immature 0.03 0.00 - 0.09 K/uL [facility] Blood 06/14/2024 11:2 0 AM EDT 06/14/2024 11:22 AM EDT Bernda Villa MD LAB BLOOD ORDERA BLES Performing Organization Address City/State/[facility] Co de Phone Number [address] [address] * (ABNORMAL) Comprehensive metabolic panel (06/14/2024 11:20 AM EDT) SODIUM 139 133 - 146 mmol/L [facility] POTASSIUM 5.0 3.3 - 5.1 mmol/L [facility] CHLORIDE 104 96 - 108 mmol/L [facility] CO2 30 21 - 35 mmol/L [facility] BUN 29(H) 6 - 19 mg/dL [facility] CREATININE 0.70 0.5 - 1.5 mg/dL [facility] GLUCOSE 95 70 - 99 mg/dL [facility] ALBUMIN 4.3 3.9 - 4.8 g/dL [facility] TOTAL PROTEIN 7.0 6.5 - 8.0 g/dL [facility] CALCIUM 9.4 8.4 - 10.3 mg/dL [facility] ALKALINE PHOSPHATASE 74 39 - 117 U/L [facility] TOTAL BILIRUBIN 0.4 0.0 - 1.2 mg/dL [facility] AST 31 0 - 37 U/L [facility] ALT 21 0 - 40 U/L [facility] GLOBULIN 2.7 1 - 4.8 g/dL [facility] EGFR 88 >59 mL/min/1.7 3m2 [facility] Comment:Estimated glomerular filtration rate calculated using the CKD-EPI refit equation. ANION GAP 10 10 - 20 mmol/L [facility] Blood 06/14/2024 11:2 0 AM EDT 06/14/2024 11:22 AM EDT Brenda Villa MD LAB BLOOD ORDERA BLES [facility] [address] [place] [address] documented in this encounter Visit Diagnoses Diagnosis Lumbar radiculopathy, chronic- Primary Onychoschizia Other specified disease of nail Osteopenia, unspecified location Encounter for monitoring chronic NSAID therapy documented in this encounter Additional Health Concerns Assessment Noted Time PHQ-2 Depression Total Score: 1 01/27/20 22 9:24 AM EDT documented as of this encounter Care Teams Air Brake Tester Relationship Specialty Start Date End Date Brenda Villa MD [address] [place] [address], [address] [place] [address] PCP - General Family Medicine 08/19/23 Enrico Wagner MD [email or web address] Consult[employer] Provider Rheumatology 07/02/21 Brenda Villa MD [address] [place] [address], [address] [place] [address] [email or web address] Insurance Assigned Provider 07/11/23 documented as of this encounter Additional Source Comments The information contained in this document represents components of the legal health record. It is not the complete legal health record.[facility]
--- OUTSIDE RECORDS SUMMARY | 2024-06-20 14:57 | XMS_ITS | Encounter Summary ---
Author Organization [facility] Address [address] [place] [address] Phone Care Team Providers Care Sap Portal Developer Name Role Phone Aida Gallardo DO Primary Care Provider [phone] Aida Gallardo DO Primary Care Provider [phone] Brenda Villa MD Primary Care Provider + Enrico Wagner MD Unavailable Brenda Villa MD Unavailable Brenda Villa MD Primary Care Provider + Encounter Details Date Type Department Care Team (Late st Contact Info) Description 04/04/2020 Procedure Pass [address] [place] [address] Social History Tobacco Use Types Packs/Day Years Used Date Smoking Tobacco: Never Smokeless Tobacco: Never Sex and Gender Information Value Date Recorded Sex Assigned at Not on file Gender Identity Not on file Sexual Orientation Not on file documented as of this encounter Last Filed Vital Signs Vital Sign Reading Time Taken Comments Blood Pressure - - Pulse - - Temperature - - Respiratory Rate - - Oxygen Saturation - - Inhaled Oxygen Concentration - - Weight 62.6 kg (138 lb) 04/05/2020 8:45 AM EST Height 167.6 cm (5' 6 ) 04/05/2020 8:45 AM EST Body Mass Index 22.27 04/05/2020 8:45 AM EST documented in this encounter Plan of Treatment Upcoming Encounters Date Type Department Care Team (Late st Contact Info) Description 04/21/2025 10:15 AM EST Appointment [facility], Bone Density - [facility] [address] [place] [address] Brenda Villa MD [address] [place] [address], [facility] 7 [place] [address] [email or web address] documented as of this encounter Visit Diagnoses Not on filedocumented in this encounter Care Teams Sap Portal Developer Relationship Specialty Start Date End Date Aida Gallardo DO [address] [place] [id number] [email or web address] PCP - General Internal Medicine 01/29/17 05/19/21 Aida Gallardo DO [address] [place] [phone] [email or web address] PCP - General Internal Medicine 05/20/21 06/03/21 Brenda Villa MD [address] [place] [address] [email or web address] PCP - General Family Medicine 06/04/21 08/18/23 Brenda Villa MD [address] [place] [address] 7 [place] [address] [email or web address] PCP - General Family Medicine 08/19/23 Enrico Wagner MD [address] [place] [address] [email or web address] Provider Rheumatology 07/02/21 Brenda Villa MD [address] [place] [address] 7 [place] [address] [email or web address] Insurance Assigned Provider 07/11/23 documented as of this encounter Additional Source Comments The information contained in this document represents components of the legal health record. It is not the complete legal health record.[facility]
--- OUTSIDE RECORDS SUMMARY | 2024-06-20 14:58 | XMS_ITS | Encounter Summary ---
Author Organization [facility] Address [address] [place] [address] Phone Care Team Providers Care Chief Fundraising Officer Name Role Phone Brenda Villa MD Primary Care Provider + Enrico Wagner MD Unavailable Brenda Villa MD Unavailable [phone] Brenda Villa MD Primary Care Provider + Encounter Details Date Type Department Care Team (Late st Contact Info) Description 01/03/2022 Procedure Pass [facility] - [address] [place] [address] Social History Tobacco Use Types Packs/Day Years [...] Answer Date Recorded Are you interested in help w ith more adult education (for example, completing high school, GED, job training, learning the [place] language, technical skills, or developing parenting skills)? No 07/01/2021 Food Answer Date Recorded Within the past [...] work? I choose not to answer 07/01/2021 Sex and Gender Information Value Date Recorded Sex Assigned at Not on file Gender Identity Not on file Sexual Orientation Not on file documented as of this encounter Plan of Treatment Upcoming Encounters Date Type Department Care Team (Late st Contact Info) Description 04/21/2025 10:15 AM EST Appointment [facility], [address] [address] Brenda Villa MD [address] [place] [address], [facility] 7 [place] [address] [email or web address] documented as of this encounter Visit Diagnoses Not on filedocumented in this encounter Additional Health Concerns Assessment Noted Time PHQ-2 Depression Total Score: 1 01/27/20 22 9:24 AM EDT documented as of this encounter Care Teams Chief Fundraising Officer Relationship Specialty Start Date End Date Brenda Villa MD PCP - General Family Medicine 06/04/21 08/18/23 Brenda Villa MD [address] [facility], [address] [place] [address] PCP - General Family Medicine 08/19/23 Enrico Wagner MD [email or web address] Rheumatology 07/02/21 Brenda Villa MD [address] [place] [address] 7 [place] [address] [email or web address] Insurance Assigned Provider 07/11/23 documented as of this encounter Additional Source Comments The information contained in this document represents components of the legal health record. It is not the complete legal health record.[facility]
--- OUTSIDE RECORDS SUMMARY | 2024-06-20 14:58 | XMS_ITS | Encounter Summary ---
Author Organization [facility] Address [address] [place] [address] Phone Care Team Providers Care Post Office Manager Name Role Phone Brenda Villa MD Primary Care Provider + Enrico Wagner MD Unavailable Brenda Villa MD Unavailable [phone] Brenda Villa MD Primary Care Provider + Encounter Details Date Type Department Care Team (Latest Contact Info) Description 01/07/2023 Transcribe Orders Virtual Department [address] [place] [address] Brenda Villa MD [address] [place] [address], [facility] 7 [place], [place] [id number] [email or web address] Breast screening (Primary Dx) Social History Tobacco Use Types [...] high school, GED, job training, learning the Irish language, technical skills, or developing parenting skills)? [...] Info) Description 04/21/2025 10:15 AM EST Appointment [facility], Bone [address] [address] Brenda Villa MD [address] [place] [address], [address] [place] [address] documented as of this encounter Results * BI MAMMOGRAM SCREENING WITH TOMOSYNTHESIS WITH CAD (BILATERAL) (02/23/2023 10:42 AM EST) Anatomical Region Laterality Modality Breast Left, Breast Right, Breast Bilateral Bila teral Mammography 02/24/2023 12:1 6 PM EST Impressions 02/25/2023 9:24 AM EST No mammographic signs of malignancy. ??Annual screening is recommended. BI-RADS CATEGORY: ??2 - Benign finding. DENSITY: ??The breast tissue is heterogeneously dense, which could obscure a lesion on mammography. Narrative 02/25/2023 9:24 AM EST Bilateral mammography is performed in conjunction with computed aided detection. 3-D tomography along with 2-D C view imaging was also performed. Comparison made to previous dated as far back as 11/22/2018 and as recent as 02/19/2022. No suspicious masses, areas of architectural distortion or suspicious microcalcifications. Tiny densities overlying the right axilla and axillary tail on the right MLO view are on the skin and consistent with deodorant residual. Procedure Note Chadwick Booker MD - 02/25/2023 Bilateral mammography is performed in conjunction with computed aideddetection. 3-D tomography along with 2-D C view imaging was alsoperformed. Comparison made to previous dated as far back as 11/22/2018 andas recent as 02/19/2022. No suspicious masses, areas of architectural distortion or suspiciousmicrocalcifications. Tiny densities overlying the right axilla andaxillary tail on the right MLO view are on the skin and consistent withdeodorant residual. IMPRESSION: No mammographic signs of malignancy. Annual screening is recommended. BI-RADS CATEGORY: 2 - Benign finding. DENSITY: The breast tissue is heterogeneously dense, which could obscurea lesion on mammography. Brenda Villa MD IMG MG EXAMS documented in this encounter Visit Diagnoses Diagnosis Breast screening- Primary Breast screening, unspecified Breast screening Breast screening, unspecified documented in this encounter Additional Health Concerns Assessment Noted Time PHQ-2 Depression Total Score: 1 01/27/20 9:24 AM EDT documented as of this encounter Care Teams Post Office Manager Relationship Specialty Start Date End Date Brenda Villa MD [email or web address] PCP - General Family Medicine 06/04/21 08/18/23 Brenda Villa MD [address] [facility] 7 [place] [address] [email or web address] PCP - General Family Medicine 08/19/23 Enrico Wagner MD [email or web address] Consulting Provider Rheumatology 07/02/21 Brenda Villa MD [address] [place] [address] 7 [place] [address] [email or web address] Insurance Assigned Provider 07/11/23 documented as of this encounter Additional Source Comments The information contained in this document represents components of the legal health record. It is not the complete legal health record.[facility]
--- OUTSIDE RECORDS SUMMARY | 2024-06-20 14:58 | XMS_ITS | Encounter Summary ---
Author Organization [facility] Address [address] [place] [address] Phone Care Team Providers Care Automat Car Attendant Name Role Phone Brenda Villa MD Primary Care Provider + Enrico Wagner MD Unavailable Brenda Villa MD Unavailable [phone] Brenda Villa MD Primary Care Provider + Encounter Details Date Type Department Care Team (Late st Contact Info) Description 12/11/2021 Ancillary Orders Virtual Department 30 [place] [address] Sebastien Luis MD [address] [place] [address] Hip discomfort, right Social History Tobacco Use Types Packs/Day Years Used Date Smoking Tobacco: Never Smokeless Tobacco: Never Alcohol Use Standard Drinks/Week Comments Not Currently 0 (1 standard drink = 0.6 oz pur e alcohol) Child or Family Care Answer Date Record ed Do you have problems with on e of the following making it difficult for you to work, study, or receive health care? No 07/01/2021 Education Answer Date Recorded Are you interested in help w ith more adult education (for example, completing high school, GED, job training, learning the Slovak language, technical skills, or developing parenting skills)? [...] Info) Description 04/21/2025 10:15 AM EST Appointment [facility], Bone Density - [address] [address] Brenda Villa MD [address] [place] [address], [address] [place] [address] [email or web address] documented as of this encounter Results * XR HIP 3+ VW RIGHT PLUS PELVIS (12/11/2021 3:00 PM EDT) Anatomical Region Laterality Modality Hip, Pelvis Computed Radiogr aphy 12/11/2021 5:58 PM EDT Impressions 12/11/2021 6:01 PM EDT No acute fractures. No radiographic evidence of periprosthetic lucency on the right. Narrative 12/11/2021 6:01 PM EDT XR HIP 3+ VW RIGHT PLUS PELVIS HISTORY: Right hip pain, status-post bilateral total hip arthroplasties. COMPARISON: Pelvis and left hip x-ray 02/06/2021. FINDINGS: Pelvis: Bilateral total hip prostheses remain in place and appear unchanged from 02/06/2021. Acetabular screws are intact. No fractures. No subluxations. Right hip: No acute fractures. No subluxations or dislocations. No suspicious periprosthetic lucencies. No significant cortical thinning. Procedure Note Chadwick Booker MD - 12/11/2021 XR HIP 3+ VW RIGHT PLUS PELVIS HISTORY: Right hip pain, status-post bilateral total hip arthroplasties. COMPARISON: Pelvis and left hip x-ray 02/06/2021. FINDINGS: Pelvis: Bilateral total hip prostheses remain in place and appearunchanged from 02/06/2021. Acetabular screws are intact. No fractures. Nosubluxations. Right hip: No acute fractures. No subluxations or dislocations. Nosuspicious periprosthetic lucencies. No significant cortical thinning. IMPRESSION: No acute fractures. No radiographic evidence of periprosthetic lucency onthe right. Sebastien Luis MD IMG XR PELVIS documented in this encounter Visit Diagnoses Diagnosis Hip discomfort, right Hip discomfort, right documented in this encounter Additional Health Concerns Assessment Noted Time PHQ-2 Depression Total Score: 1 07/02/19 22 8:13 AM EDT documented as of this encounter Care Teams Automat Car Attendant Relationship Specialty Start Date End Date Brenda Villa MD PCP - General Family Medicine 06/04/21 08/18/23 Brenda Villa MD [address] [place] [address] 7 [place] [address] PCP - General Family Medicine 08/19/23 Enrico Wagner MD [email or web address] Consulting Provider Rheumatology 07/02/21 Brenda Villa MD [address] [place] [address] 7 [place] [address] [email or web address] Insurance Assigned Provider 07/11/23 documented as of this encounter Additional Source Comments The information contained in this document represents components of the legal health record. It is not the complete legal health record.[facility]
--- OUTSIDE RECORDS SUMMARY | 2024-06-20 14:58 | XMS_ITS | Encounter Summary ---
Author Organization [facility] Address [address] [place] [address] Phone Care Team Providers Care Yarn Washer Name Role Phone Enrico Wagner MD Unavailable Brenda Villa MD Unavailable [phone] Brenda Villa MD Primary Care Provider + Reason for Visit * Reason Comments Medication Refill Encounter Details Date Type Department Care Team (Late st Contact Info) Description 05/22/2024 Refill [facility] [address] [place], [place] [phone] Brenda Villa MD [address] [facility] [address] [place], [place] [id number] [email or web address] Medication Refill Social History Tobacco Use Types Packs/Day Years [...] on file documented as of this encounter Progress Notes * Crystal Costa - 05/24/2024 1:20 PM EST Rx Care Gap Status - Instructions for Clinical Staff (prescriber discretion applies): > No future appt: Please schedule if appropriate. Visit Info Last visit: 02/10/2024 Brenda Villa MD - Family Medicine [facility] > Requested f/u: Not specified Upcoming visit: None ACTIONS TAKEN BY Crystal Costa - Refill protocol passed: no action needed. Thyroid Medication Rx Protocol - levothyroxine sodium Criteria met; renew for up to 12 months. Visit in the past 14 months: Yes Clinical criteria: - TSH within past year: Yes - Last TSH was normal: Yes Lab Results Component Value Date TSH 2.57 03/24/2024 FREE T4 1.3 05/28/2021 documented in this encounter Plan of Treatment Upcoming Encounters Date Type Department Care Team (Late st Contact Info) Description 04/21/2025 10:15 AM EST Appointment [facility], Bone Density [facility] [address] [place] [address] Brenda Villa MD 234 [facility], [facility] 7 [place] [address] [email or web address] documented as of this encounter Visit Diagnoses Diagnosis Acquired hypothyroidism Unspecified hypothyroidism documented in this encounter Additional Health Concerns Assessment Noted Time PHQ-2 Depression Total Score: 1 01/27/20 9:24 AM EDT documented as of this encounter Care Teams Yarn Washer Relationship Specialty Start Date End Date Brenda Villa MD [address] [place] [address] 7 [place] [address] [email or web address] PCP - General Family Medicine 08/19/23 Enrico Wagner MD [email or web address] Consult[employer] Provider Rheumatology 07/02/21 Brenda Villa MD [address] [place] [address] 7 [place] [address] [email or web address] Insurance Assigned Provider 07/11/23 documented as of this encounter Additional Source Comments The information contained in this document represents components of the legal health record. It is not the complete legal health record.[facility]
--- OUTSIDE RECORDS SUMMARY | 2024-06-20 14:58 | XMS_ITS | Encounter Summary ---
Author Organization [facility] Address [address] [facility] [address] [place] [address] Phone Care Team Providers Care Microbiology Lab Analyst Name Role Phone Aida Gallardo DO Primary Care Provider [phone] Aida Gallardo DO Primary Care Provider [phone] Brenda Villa MD Primary Care Provider + Enrico Wagner MD Unavailable Brenda Villa MD Unavailable [phone] Brenda Villa MD Primary Care Provider + Encounter Details Date Type Department Care Team (Late st Contact Info) Description 06/11/2018 Procedure Pass [address] [place] [address] Social History Tobacco Use Types Packs/Day Years [...] - Inhaled Oxygen Concentration - - Weight 62.1 kg (137 lb) 06/14/2018 2:05 PM EDT Height 167.6 cm (5' 6 ) 06/14/2018 2:05 PM EDT Body Mass Index 22.11 06/14/2018 2:05 PM EDT documented in this encounter Plan of Treatment Upcoming Encounters Date Type Department Care Team (Late st Contact Info) Description 04/21/2025 10:15 AM EST Appointment [facility], Bone Density - [facility] 30 [place] [address] Brenda Villa MD [address] [place] [address] 7 [place] [address] [email or web address] documented as of this encounter Visit Diagnoses Not on filedocumented in this encounter Care Teams Microbiology Lab Analyst Relationship Specialty Start Date End Date Aida Gallardo DO [address] [place] [address] [email or web address] PCP - General Internal Medicine 01/29/17 05/19/21 Aida Gallardo DO [address] [place] [address] [email or web address] PCP - General Internal Medicine 05/20/21 06/03/21 Brenda Villa MD [address] [place] [address] [email or web address] PCP - General Family Medicine 06/04/21 08/18/23 Brenda Villa MD [address] [place] [address] 7 [place] [address] [email or web address] PCP - General Family Medicine 08/19/23 Enrico Wagner MD [address] [place] [address] [email or web address] Consulting Provider Rheumatology 07/02/21 Brenda Villa MD [address] [place] [address] 7 [place] [address] [email or web address] Insurance Assigned Provider 07/11/23 documented as of this encounter Additional Source Comments The information contained in this document represents components of the legal health record. It is not the complete legal health record.[facility]
--- OUTSIDE RECORDS SUMMARY | 2024-06-20 14:58 | XMS_ITS | Encounter Summary ---
Author Organization [facility] Address [address] [facility] [address] [place] [address] Phone Care Team Providers Care Piece Goods Clerk Name Role Phone Brenda Villa MD Primary Care Provider + Enrico Wagner MD Unavailable Brenda Villa MD Unavailable [phone] Brenda Villa MD Primary Care Provider + Encounter Details Date Type Department Care Team (Late st Contact Info) Description 08/22/2021 Procedure Pass [address] [place] [address] Social History Tobacco Use Types Packs/Day Years [...] high school, GED, job training, learning the Swazi language, technical skills, or developing parenting skills)? [...] Info) Description 04/21/2025 10:15 AM EST Appointment [facility], [address] [address] Brenda Villa MD 234 [facility], [facility] 7 [place] [address] documented as of this encounter Visit Diagnoses Not on filedocumented in this encounter Additional Health Concerns Assessment Noted Time PHQ-2 Depression Total Score: 1 07/02/19 22 8:13 AM EDT documented as of this encounter Care Teams Piece Goods Clerk Relationship Specialty Start Date End Date Brenda Villa MD PCP - General Family Medicine 06/04/21 08/18/23 Brenda Villa MD 234 [facility], [address] [place] [address] PCP - General Family Medicine 08/19/23 Enrico Wagner MD [email or web address] Consult[employer] Provider Rheumatology 07/02/21 Brenda Villa MD [address] [place] [address] 7 [place] [address] [email or web address] Insurance Assigned Provider 07/11/23 documented as of this encounter Additional Source Comments The information contained in this document represents components of the legal health record. It is not the complete legal health record.[facility]
--- OUTSIDE RECORDS SUMMARY | 2024-06-20 14:58 | XMS_ITS | Encounter Summary ---
Author Organization [facility] Address [address] [facility] [address] [place] [address] Phone Care Team Providers Care Industrial Design Engineer Name Role Phone Aida Gallardo DO Primary Care Provider [phone] Aida Gallardo DO Primary Care Provider [phone] Brenda Villa MD Primary Care Provider + Enrico Wagner MD Unavailable Brenda Villa MD Unavailable Brenda Villa MD Primary Care Provider + Encounter Details Date Type Department Care Team (Late st Contact Info) Description 02/06/2021 Ancillary Orders [facility] [address] [place] [address] [place] [address] Cody Hodges PA [address] [place] [address] [email or web address] Left hip pain Social History Tobacco Use Types Packs/Day Years Used Date Smoking Tobacco: Never Smokeless Tobacco: Never Alcohol Use Standard Drinks/Week Comments Not Currently 0 (1 standard drink = 0.6 oz pur e alcohol) Sex and Gender Information Value Date Recorded Sex Assigned at Not on file Gender Identity Not on file Sexual Orientation Not on file documented as of this encounter Plan of Treatment Upcoming Encounters Date Type Department Care Team (Late Contact Info) Description 04/21/2025 10:15 AM EST Appointment [facility], Bone Density - [facility] 30 [place] [address] Brenda Villa MD [address] [place] [address], [address] [place], [place] [phone] [email or web address] documented as of this encounter Results * XR HIP 3+ VW RIGHT PLUS PELVIS (02/06/2021 12:50 PM EDT) Anatomical Region Laterality Modality Hip, Pelvis Computed Radiogr aphy 02/06/2021 12:5 5 PM EDT Impressions 02/06/2021 12:58 PM EDT 1.No acute fracture. 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 Narrative 02/06/2021 12:58 PM EDT COMPARISON: 05/10/2020. LEFT HIP/PELVIC RADIOGRAPH FINDINGS: 4 images obtained. No acute fracture or malalignment. Stable bilateral hip replacements. 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 No destructive or suspicious bone lesions. No soft tissue swelling. Procedure Note Enrico Garcia MD - 02/06/2021 COMPARISON: 05/10/2020. LEFT HIP/PELVIC RADIOGRAPH FINDINGS: 4 images obtained. No acute fracture or malalignment. Stable bilateral hip replacements.Chronic severe L4-5 and L5-S1 disc disease and facet arthropathy. Nodestructive or suspicious bone lesions. No soft tissue swelling. IMPRESSION: 1.No acute fracture. 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 Cody CHOI IMJose Antonio XR PELVIS documented in this encounter Visit Diagnoses Diagnosis Left hip pain Pain in joint, pelvic region and thigh Left hip pain Pain in joint, pelvic region and thigh documented in this encounter Care Teams Industrial Design Engineer Relationship Specialty Start Date End Date Aida Gallardo DO [address] [place] [address] [email or web address] PCP - General Internal Medicine 01/29/17 05/19/21 Aida Gallardo DO [address] [place] [address] [email or web address] PCP - General Internal Medicine 05/20/21 06/03/21 Brenda Villa MD [address] [place] [address] [email or web address] PCP - General Family Medicine 06/04/21 08/18/23 Brenda Villa MD [address] [place] [address], [facility] 7 [place] [address] [email or web address] PCP - General Family Medicine 08/19/23 Enrico Wagner MD [address] [place] [address] [email or web address] Provider Rheumatology 07/02/21 Brenda Villa MD [address] [place] [address] 7 [place] [address] [email or web address] Insurance Assigned Provider 07/11/23 documented as of this encounter Additional Source Comments The information contained in this document represents components of the legal health record. It is not the complete legal health record.[facility]
--- OUTSIDE RECORDS SUMMARY | 2024-06-20 14:58 | XMS_ITS | Encounter Summary ---
Author Organization [facility] Address [address] [facility] [address] [place] [address] Phone Care Team Providers Care Hot End Operator Name Role Phone Brenda Villa MD Primary Care Provider + Enrico Wagner MD Unavailable Brenda Villa MD Unavailable [phone] Brenda Villa MD Primary Care Provider + Encounter Details Date Type Department Care Team (Latest Contact Info) Description 12/11/2021 Transcribe Orders Virtual Department 30 [place] [address] Sebastien Luis MD 65 [place] [address] Hip discomfort, right (Primary Dx) Social History Tobacco Use Types [...] high school, GED, job training, learning the British language, technical skills, or developing parenting skills)? [...] Info) Description 04/21/2025 10:15 AM EST Appointment [facility], Bone Density [address] [address] Brenda Villa MD [address] [place] [address] [email or web address] documented as of this encounter Visit Diagnoses Diagnosis Hip discomfort, right- Primary documented in this encounter Additional Health Concerns Assessment Noted Time PHQ-2 Depression Total Score: 1 07/02/19 22 8:13 AM EDT documented as of this encounter Care Teams Hot End Operator Relationship Specialty Start Date End Date Brenda Villa MD [email or web address] PCP - General Family Medicine 06/04/21 08/18/23 Brenda Villa MD [address] [place] [address] 7 [place] [address] [email or web address] PCP - General Family Medicine 08/19/23 Enrico Wagner MD [email or web address] Consult[employer] Provider Rheumatology 07/02/21 Brenda Villa MD 234 [facility] 7 [place] [address] [email or web address] Insurance Assigned Provider 07/11/23 documented as of this encounter Additional Source Comments The information contained in this document represents components of the legal health record. It is not the complete legal health record.[facility]
--- OUTSIDE RECORDS SUMMARY | 2024-06-20 14:58 | XMS_ITS | Encounter Summary ---
Author Organization [facility] Address [address] [facility] [address] [place] [address] Phone Care Team Providers Care Music Supervisor Name Role Phone Brenda Villa MD Primary Care Provider + Enrico Wagner MD Unavailable Brenda Villa MD Unavailable [phone] Brenda Villa MD Primary Care Provider + Encounter Details Date Type Department Care Team (Latest Contact Info) Description 06/06/2022 Transcribe Orders Virtual Department 30 [place] [address] Sebastien Luis MD 65 [place] [address] Aftercare following right hip joint replacement surgery (Primary Dx); Hip tendonitis, right Social History Tobacco Use Types Packs/Day [...] high school, GED, job training, learning the Somali language, technical skills, or developing parenting skills)? [...] Info) Description 04/21/2025 10:15 AM EST Appointment [facility], Bone [address] [address] Brenda Villa MD [address] [place] [address], [facility] 7 [place] [address] [email or web address] documented as of this encounter Results * XR HIP 2 VW RIGHT PLUS PELVIS (06/09/2022 11:21 AM EST) Anatomical Region Laterality Modality Hip, Pelvis Computed Radiogr aphy 06/09/2022 11:0 6 PM EST Impressions 06/09/2022 11:11 PM EST Bilateral total hip arthroplasties. No evidence of hardware complication. Narrative 06/09/2022 11:11 PM EST XR HIP 2 VW RIGHT PLUS PELVIS COMPARISON: MRI HIP WITHOUT CONTRAST (RIGHT) ; XR HIP 3+ VW RIGHT PLUS PELVIS FINDINGS: PELVIS: Pelvic ring intact. No displaced fracture. Degenerative changes of the lower lumbar spine, sacroiliac joints, and pubic symphysis. Inferior sacrum obscured by bowel gas. Constipation. RIGHT HIP: Right total hip arthroplasty with screw fixated acetabular component. Hardware is intact and in unchanged alignment. No periprosthetic fracture or lucency. ?? LEFT HIP: Partially visualized left total hip arthroplasty. Inferior femoral stem not included in the xgogm-gr-fura. Visualized hardware is intact and in unchanged alignment. No periprosthetic fracture or lucency. Procedure Note Zacarias Myles MD - 06/09/2022 XR HIP 2 VW RIGHT PLUS PELVIS COMPARISON: MRI HIP WITHOUT CONTRAST (RIGHT) ; XR HIP 3+ VWRIGHT PLUS PELVIS FINDINGS: PELVIS: Pelvic ring intact. No displaced fracture. Degenerative changes ofthe lower lumbar spine, sacroiliac joints, and pubic symphysis. Inferiorsacrum obscured by bowel gas. Constipation. RIGHT HIP: Right total hip arthroplasty with screw fixated acetabularcomponent. Hardware is intact and in unchanged alignment. Noperiprosthetic fracture or lucency. LEFT HIP: Partially visualized left total hip arthroplasty. Inferiorfemoral stem not included in the gdamf-vt-xmzf. Visualized hardware isintact and in unchanged alignment. No periprosthetic fracture or lucency. IMPRESSION: Bilateral total hip arthroplasties. No evidence of hardware complication. Sebastien Luis MD IMG XR PELVIS documented in this encounter Visit Diagnoses Diagnosis Aftercare following right hip joint replacement surgery- Primary Hip tendonitis, right Aftercare following right hip joint replacement surgery Hip tendonitis, right documented in this encounter Additional Health Concerns Assessment Noted Time PHQ-2 Depression Total Score: 1 01/27/20 22 9:24 AM EDT documented as of this encounter Care Teams Music Supervisor Relationship Specialty Start Date End Date Brenda Villa MD PCP - General Family Medicine 06/04/21 08/18/23 Brenda Villa MD [address] [place] [address] 7 [place] [address] [email or web address] PCP - General Family Medicine 08/19/23 Enrico Wagner MD [email or web address] Provider Rheumatology 07/02/21 Brenda Villa MD [address] [place] [address] 7 [place] [address] [email or web address] Insurance Assigned Provider 07/11/23 documented as of this encounter Additional Source Comments The information contained in this document represents components of the legal health record. It is not the complete legal health record.[facility]
--- OUTSIDE RECORDS SUMMARY | 2024-06-20 14:58 | XMS_ITS | Encounter Summary ---
Author Organization [facility] Address [address] [facility] [address] [place] [address] Phone Care Team Providers Care Studio Assistant Name Role Phone Enrico Wagner MD Unavailable Brenda Villa MD Unavailable [phone] Brenda Villa MD Primary Care Provider + Encounter Details Date Type Department Care Team (Late st Contact Info) Description 10/16/2023 Procedure Pass Non-Invasive Cardiology 30 [place] [address] Social History Tobacco Use Types Packs/Day Years [...] Info) Description 04/21/2025 10:15 AM EST Appointment [facility], Bone [address] [address] Brenda Villa MD [address] [place] [address] [email or web address] documented as of this encounter Visit Diagnoses Not on filedocumented in this encounter Additional Health Concerns Assessment Noted Time PHQ-2 Depression Total Score: 1 01/27/20 22 9:24 AM EDT documented as of this encounter Care Teams Studio Assistant Relationship Specialty Start Date End Date Brenda Villa MD [address] [place] [address], [facility] [[email or web address] 7 [place] [address] [email or web address] PCP - General Family Medicine 08/19/23 Enrico Wagner MD [email or web address] Consult[employer] Provider Rheumatology 07/02/21 Brenda Villa MD [address] [place] [address] 7 [place] [address] [email or web address] Insurance Assigned Provider 07/11/23 documented as of this encounter Additional Source Comments The information contained in this document represents components of the legal health record. It is not the complete legal health record.[facility]
--- OUTSIDE RECORDS SUMMARY | 2024-06-20 14:58 | XMS_ITS | Encounter Summary ---
Author Organization [facility] Address [address] [place] [address] Phone Care Team Providers Care Business Intern Name Role Phone Aida Gallardo DO Primary Care Provider [phone] Aida Gallardo DO Primary Care Provider [phone] Brenda Villa MD Primary Care Provider + Enrico Wagner MD Unavailable Brenda Villa MD Unavailable Brenda Villa MD Primary Care Provider + Encounter Details Date Type Department Care Team (Late st Contact Info) Description 10/11/2018 Procedure Pass [address] [place] [address] Social History Tobacco Use Types Packs/Day Years Used Date Smoking Tobacco: Never Smokeless Tobacco: Never Sex and Gender Information Value Date Recorded Sex Assigned at Not on file Gender Identity Not on file Sexual Orientation Not on file documented as of this encounter Plan of Treatment Upcoming Encounters Date Type Department Care Team (Late st Contact Info) Description 04/21/2025 10:15 AM EST Appointment [facility], [facility] - [address] [address] Brenda Villa MD [address] [place] [address], [address] [place], [place] [phone] documented as of this encounter Visit Diagnoses Not on filedocumented in this encounter Care Teams Business Intern Relationship Specialty Start Date End Date Aida Gallardo DO [address] [place] [address] [email or web address] PCP - General Internal Medicine 01/29/17 05/19/21 Aida Gallardo DO [address] [place] [address] [email or web address] PCP - General Internal Medicine 05/20/21 06/03/21 Brenda Villa MD [address] [place] [address] [email or web address] PCP - General Family Medicine 06/04/21 08/18/23 Brenda Villa MD [address] [place] [address], [address] [place] [address] [email or web address] PCP - General Family Medicine 08/19/23 Enrico Wagner MD [address] [place] [address] [email or web address] Consulting Provider Rheumatology 07/02/21 Brenda Villa MD [address] [place] [address], [address] [place] [address] [email or web address] Insurance Assigned Provider 07/11/23 documented as of this encounter Additional Source Comments The information contained in this document represents components of the legal health record. It is not the complete legal health record.[facility]
--- OUTSIDE RECORDS SUMMARY | 2024-06-20 14:58 | XMS_ITS | Encounter Summary ---
Author Organization [facility] Address [address] [facility] [address] [place] [address] Phone Care Team Providers Care Electrical Engineering Director Name Role Phone Enrico Wagner MD Unavailable Brenda Villa MD Unavailable [phone] Brenda Villa MD Primary Care Provider + Encounter Details Date Type Department Care Team (Late st Contact Info) Description 02/10/2024 Procedure Pass [facility], [address] [place] [address] Social History Tobacco Use Types Packs/Day Years [...] Info) Description 04/21/2025 10:15 AM EST Appointment [address] [address] Brenda Villa MD [address] [place] [address] [email or web address] documented as of this encounter Visit Diagnoses Not on filedocumented in this encounter Additional Health Concerns Assessment Noted Time PHQ-2 Depression Total Score: 1 01/27/20 22 9:24 AM EDT documented as of this encounter Care Teams Electrical Engineering Director Relationship Specialty Start Date End Date Brenda Villa MD 234 [facility] 7 [place] [address] PCP - General Family Medicine 08/19/23 Enrico Wagner MD [email or web address] Consult[employer] Provider Rheumatology 07/02/21 Brenda Villa MD [address] [place] [address] 7 [place] [address] [email or web address] Insurance Assigned Provider 07/11/23 documented as of this encounter Additional Source Comments The information contained in this document represents components of the legal health record. It is not the complete legal health record.[facility]
--- OUTSIDE RECORDS SUMMARY | 2024-06-20 14:58 | XMS_ITS | Clinical Summary ---
Author Organization [facility] Address [address] [place] [address] Phone Care Team Providers Care Commercial Construction Project Manager Name Role Phone Enrico Wagner MD Unavailable Brenda Villa MD Unavailable [phone] Brenda Villa MD Primary Care Provider + Allergies Active Allergy Reactions Criticality Noted Date Comments Codeine 06/01/2018 Nitrofurantoin Monohyd/M-Cryst Fever 08/08 Medications Medication Sig Dispensed Refills Start Date End Date Status b complex vitamins tablet Take 1 tablet by mouth daily. Active omega 6-ics-plr-fish oil 1,000 mg (120 mg-180 mg) Cap Take 1 capsule by mouth daily. Active magnesium oxide 500 mg Cap Take 1 tablet by mouth daily. Active cholecalciferol, vitamin D3, 25 mcg (1,000 unit) capsule Take 1 capsule by mouth daily. Active multivitamins with minerals-iron (THERA-VM) Tab Take 1 tablet by mouth daily. Active safflower oil-linoleic acid,co 1,000 mg Cap Take 1,000 capsules by mouth daily. Active ascorbic acid, vitamin C, (VITAMIN C) 500 MG tablet Take 1,000 mg by mouth daily. Active BIOTIN ORAL Take 1,000 mcg by mouth daily. Active triamcinolone acetonide (NASACORT NASL) 1 spray by Nasal route as needed. Active Medication-Free Text Cologen Powder Active amitriptyline (ELAVIL) 10 MG tabletIndications: Irritable bowel syndrome with both constipation and diarrhea take 1 tablet by mouth everyday at bedtime 90 tablet 3 4 Active dicyclomine (BENTYL) 10 MG capsuleIndications :Irritable bowel syndrome with both constipation and diarrhea take 1 capsule by mouth every day 90 capsule 3 4 Active ciclopirox (PENLAC) 8 % solutionIndication s:Onychomycosis Apply topically nightly at bedtime. Apply over nail and surrounding skin. Apply daily over previous coat. After seven (7) days, may remove with alcohol and continue cycle. 6.6 mL 5 4 Active celecoxib (CELEBREX) 200 MG capsuleIndications :Polyarticular osteoarthritis TAKE 1 CAPSULE BY MOUTH EVERY DAY 90 capsule 3 5 Active levothyroxine (SYNTHROID, LEVOTHROID) 50 MCG tabletIndications: Acquired hypothyroidism TAKE 1 TABLET BY MOUTH EVERY DAY 90 tablet 3 5 Active clobetasol (TEMOVATE) 0.05 % ointmentIndication s:Onychoschizia Apply topically 2 (two) times a day as needed (hand rash). 60 g 1 5 Active levothyroxine (SYNTHROID, LEVOTHROID) 50 MCG tabletIndications: Acquired hypothyroidism take 1 tablet by mouth every day 90 tablet 3 4 025 Discontinued clobetasol (TEMOVATE) 0.05 % ointment Apply topically 2 (two) times a day. 025 Discontinued(Re order) Active Problems Problem Noted Date Diagnosed Date NSAID long-term use 08/23/2022 Assessment & Plan (08/23/2022 6:07 PM EDT): No symptomatic AEs to longstanding celecoxib; recommend routine monitoring labs every 4 months in this 76 y.o. lady Screening for lipid disorders 07/02/2021 Assessment & Plan (07/02/2021 11:22 PM EDT): Due for lipid, ordered FLP Acquired hypothyroidism 07/02/2021 Assessment & Plan (07/02/2021 11:21 PM EDT): TSH due, order placed Continue current levothyroxine- feeling well w/ good energy and baseline GI sxs control Irritable bowel syndrome wit h both constipation and diarrhea 07/02/2021 Assessment & Plan (07/02/2021 11:22 PM EDT): Well controlled w/ daily amitriptyline and bentyl. Rx refilled Polyarticular osteoarthritis 07/02/2021 Overview (08/23/2022): s/p bl RYDER and TSA; bl TKA planned for winter s/p left 1st CMC arthroplasty Ferritin 175 (05/2022) 138 (2021); patient reports remote genetic testing for hemochromatosis was negative Assessment & Plan (08/23/2022 6:05 PM EDT): No historical, physical, or serologic evidence s/o underlying or co-morbid inflammatory arthritis; underlying hemochromatosis previously r/o as detailed above. Sxs have been mitigated by longstanding celecoxib. Lengthy d/w patient today re: my relative limited role in ongoing mgmt of OA w/o concomitant inflammatory arthritis. I am unable to refer her to a specific hand surgeon to discuss potential surgical options for tx of right 1st CMC OA though perhaps her PCP can guide her to someone she finds acceptable. Assessment & Plan (12/12/2021 10:53 AM EDT): Continue celebrex 200mg daily which has been helpful and well tolerated. - Continue ortho and physiatry follow-up for spinal stenosis Assessment & Plan (07/02/2021 11:24 PM EDT): Chronic back pain/joint pains Doing well w/ orthopedics Staying active Finds icing helpful Bilateral hand pain 05/29/2021 Overview (05/29/2021): 75 yo female with generalized OA, s/p shanti hup and shoulder replacements Increased hand pain , exam most consistent with OA Will check for erosive , inflammatory component XR Labs Trial Voltaren gel Paraffin bath Assessment & Plan (05/29/2021 9:20 AM EST): 75 yo female with generalized OA, s/p shanti hip and shoulder replacements Increased hand pain , exam most consistent with OA Also reports new onset ? Raynaud's which can be a/w auto immune illness when occurs later in Life Will check for erosive , inflammatory component of hand pain and r/o any underlying auto-immune illness XR Labs Trial Voltaren gel Paraffin bath Tinnitus of left ear 11/20/2020 Hearing loss due to cerumen impaction 11/20/2020 Assessment & Plan (11/20/2020 2:38 PM EDT): There is a large cerumen impaction in the left ear. She will see her primary care physician for lavage. I then recommended audiology for hearing test. Lumbar spinal stenosis 06/11/2018 Overview (08/23/2022): Seen by [facility] project controls specialist 2021 and declined surgery at that time Assessment & Plan (08/23/2022 6:07 PM EDT): Recommend f/u with [facility]SS if recurrence of severe or persistent sxs; no current indication for ongoing rheumatology-specific mgmt Assessment & Plan (11/20/2020 2:39 PM EDT): This causes neurogenic claudication and is causing weakness and disability so she will have her appointment with the spinal specialist and arrive at a satisfactory conclusion with the surgical, radiofrequency ablation, or epidural injection. Assessment & Plan (05/22/2020 11:51 AM EST): Reviewed MRI as well as notes from Dr. Pabon. Continue Celebrex. Continue amitriptyline at bedtime. No evidence of neurogenic claudication or radiculopathy. Assessment & Plan (01/17/2020 10:47 AM EDT): Because of persistent right lower lumbar L5 facet arthropathy without radiculopathy I am referring her to orthopedics for consideration of a fluoroscopically guided facet joint block. She agrees with this. Also it is her desire to stop the Celebrex. She does not need to taper. She may use acetaminophen not exceeding 1500 mg daily as needed. Risks and benefits were discussed. She will call me if the arthritic situation worsens significantly off the Celebrex. We will continue on 10 mg of amitriptyline at bedtime. A total of 28 minutes was spent during this visit of which at the time was spent in direct conversation with the patient coordinating my care without of her orthopedist and new consult to spinal pain management. Risks and benefits of stopping Celebrex discussed as well. Questions answered. Assessment & Plan (08/08/2019 12:05 PM EDT): Patient is having increasing discomfort when walking on her 3 mile walks in both of her hamstrings as well as a feeling of swelling and heaviness with discomfort with the right buttock meets the lower back. I believe this is secondary to her right-sided L5-S1 lateral recess stenosis and facet arthropathy. She is also having intermittent neurogenic claudication. Fortunately after review the MRI shows no evidence of central canal stenosis. Plan will be to continue current medications with Celebrex during the day and amitriptyline at night. When it is safe to be out and about I would like to send her for an evaluation to Dr. Eric Slade for consideration of a fluoroscopically guided epidural injection. Occasions will be left unchanged now. Assessment & Plan (03/15/2019 4:38 PM EST): Reviewed recent MRI showing bilateral L4-5 and L5-S1 lateral recess stenosis. This may contribute to lower extremity pain. He understands the need for reevaluation and possible epidural injection if if she begins to have worsening pain in her legs that is construed is compatible with neurogenic claudication. Assessment & Plan (10/11/2018 1:52 PM EDT): It is quite likely that the feeling of her legs not belonging to her was secondary to neurogenic claudication from lumbar spinal stenosis. I reviewed the recent lead done MRI scan which does show areas of severe right and left lateral recess stenosis at L5-S1 and L4-5 respectively but only mild central canal stenosis. This occurs as a combination of both disc bulging as well as hypertrophy of the ligamentum flavum and bony stenosis of the neuroforamina. I explained to her the natural history of this and the consequences and the need for a referral to a spinal specialist as well as the treatments that are offered including epidural corticosteroids, radiofrequency ablation, and decompressive laminectomy. I do not feel she is quite at the point where she needs surgical referral but she will keep me posted as to the intensity and frequency of these episodes. Assessment & Plan (06/11/2018 1:44 PM EST): I reviewed patient's x-rays, medication list, and I discussed her symptomatology which is entirely compatible with a lumbar radiculitis. In the differential diagnosis could be a central disc herniation versus worsening of pre-existing lateral recess or central canal stenosis. Reassuringly her motor strength appears normal and her reflexes are symmetrical and brisk. Be that as it may be because of the acute nature of this and the marked difficulty in her ability to weight-bear and exercise I am requesting an MRI scan of the lumbar spine. There may be resolution of the spontaneously over the next 2 months but we would like to see what the anatomy looks like first before making other recommendations. She has tried getting off the Celebrex at my recommendation but she has been unable to. She is back on 200 mg daily and I suggested going to 100 mg daily and using 100 mg twice daily when needed. A new prescription for 100 mg capsules were sent in. Greater than 50% of this 28-minute visit was spent [id number] conversation with the patient going over her history of lumbar spinal stenosis and the symptoms of neurogenic claudication and radiculopathy. Also went over therapeutic interventions which may be necessary depending upon the results and her symptoms. Pain of right hip joint 06/01/2018 Assessment & Plan (05/22/2020 11:50 AM EST): Unclear etiology for continued burning pain and clicking in the right hip prosthesis. X-rays normal. Does not sound like a lumbar radiculopathy. We will get a CT scan through the prosthetic area and report back to her and if necessary she will go back to see her orthopedic hip replacement surgeon after that. Assessment & Plan (10/11/2018 1:52 PM EDT): Will assess the integrity of the right hip prosthesis with an MRI scan of the right hip and get back to her by phone call. Right now she does have an appointment to see the orthopedic hip replacement surgeon next month. Trochanteric bursitis of right hip 08/11/2017 Assessment & Plan (02/10/2018 12:59 PM EST): I will x-ray her sacroiliac joints today but I do feel that it is likely that her pain is generated from the right trochanteric bursa will see how she does with the injection today. Her medications will be left unchanged. Will call me in 3 days to let me know how she is doing and I will call her with results of the ultrasound. Assessment & Plan (08/11/2017 12:11 PM EDT): Patient is having recurrence of pain along the outer portion of the right hip region where she had total hip replacement. I've asked her to contact her hip replacement surgeon. She may have a trochanteric bursitis. I will not inject this today. She should have x-rays done of the hip prosthesis. Cervical spondylitis 05/04/2017 Assessment & Plan (03/15/2019 4:39 PM EST): Mild restriction in range of motion but no real pain and no long track signs or signs of radiculopathy. Continue on Celebrex at 200 mg daily. Refills given today. Lab work reviewed indicating normal chemistry profile and CBC without alteration in liver or kidney function and no evidence of anemia. Spinal enthesopathy of cervical region 8 Assessment & Plan (05/04/2017 1:41 PM EST): Patient will receive a pain relieving trigger point injection today into the left cervical paraspinal region for a flare of her enthesopathy processes. She does so signs of intermittent radicular pain down the left upper extremity. I will review her previous MRI done 4 years ago. She will be referred to physical therapy. I refilled her Celebrex. Primary osteoarthritis of both first carpometaca rpal joints 05/04/2017 Assessment & Plan (11/20/2020 2:39 PM EDT): Intermittently painful but she uses Celebrex at 200 mg daily and tolerates it well without melena hematochezia diarrhea or leg swelling. Recent lab work was reviewed. We discussed long-term potential risks of using Celebrex at this dosage including hypertension, gastritis, and renal or hepatic abnormalities. She will stay on this dose for now. No visits with results within 3 Month(s) from this visit. Latest known visit with results is: Hospital Outpatient Visit on 05/22/2020 Component Date Value Ref Range Status ? ? TSH 05/22/2020 3.03 0.27 - 4.20 uIU/mL Final ? ? 25 OH VIT D (TOTAL) 05/22/2020 45 30 - 60 ng/mL Final ? ? SODIUM 05/22/2020 140 133 - 146 mmol/L Final ? ? POTASSIUM 05/22/2020 4.3 3.3 - 5.1 mmol/L Final ? ? CHLORIDE 05/22/2020 103 96 - 108 mmol/L Final ? ? CO2 05/22/2020 28 21 - 35 mmol/L Final ? ? BUN 05/22/2020 18 6 - 19 mg/dL Final ? ? CREATININE 05/22/2020 0.60 0.5 - 1.5 mg/dL Final ? ? GLUCOSE 05/22/2020 98 70 - 99 mg/dL Final ? ? ALBUMIN 05/22/2020 4.4 3.9 - 4.8 g/dL Final ? ? TOTAL PROTEIN 05/22/2020 7.3 6.5 - 8.0 g/dL Final ? ? CALCIUM 05/22/2020 9.5 8.4 - 10.3 mg/dL Final ? ? ALKALINE PHOSPHATASE 05/22/2020 70 39 - 117 U/L Final ? ? TOTAL BILIRUBIN 05/22/2020 0.5 0.0 - 1.2 mg/dL Final ? ? AST 05/22/2020 41* 0 - 37 U/L Final ? ? ALT 05/22/2020 23 0 - 40 U/L Final ? ? GLOBULIN 05/22/2020 2.9 1 - 4.8 g/dL Final ? ? EGFR 05/22/2020 89 >59 mL/min/1.73m2 Final Estimated glomerular filtration rate calculated using the CKD-EPI equation. ? ? ANION GAP 05/22/2020 13 10 - 20 mmol/L Final Assessment & Plan (08/11/2017 12:12 PM EDT): Patient has stable interphalangeal osteoarthritis. Chief complaint is around pain and changes and no growth of the index third and fourth fingers bilaterally which she has prominent Heberden's nodes. There is no evidence of rheumatoid arthritis. I reviewed lab work with her showing no elevation of C-reactive protein, normal vitamin D level, a stable CBC with differential, and a stable chemistry profile. Assessment & Plan (05/04/2017 1:43 PM EST): Patient has surgery on the left side and is quite happy and has painful osteoarthritis in the basilar thumb joint on the right side which she is considering surgery on. She also has significant bilateral interphalangeal osteoarthritis with Heberden's nodes and disturbance of nail growth which was discussed in detail. 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 This medication was renewed today. Osteopenia of multiple sites 05/04/2017 Assessment & Plan (03/15/2019 4:39 PM EST): Continue vitamin D3 1000 units daily. Continue calcium 500 mg daily. Fall and fracture prevention strategies discussed. Assessment & Plan (02/10/2018 12:58 PM EST): Fall and fracture prevention strategies discussed as well as maintenance of vitamin D3 at 1000 units daily. Assessment & Plan (08/11/2017 12:12 PM EDT): I reviewed her last bone densitometry. She will have another one in 2019. She does not have osteoporosis but does have osteopenia. She will stay on vitamin D3 at 1000 units daily. We discussed fall and fracture prevention strategies. Assessment & Plan (05/04/2017 1:42 PM EST): She will stay on vitamin D3 at 1000 units daily and we will check a level to see if she is therapeutic. Fall and fracture prevention strategies were discussed. Compliance with vitamin D was discussed. Resolved Problems Problem Noted Date Diagnosed Date Resolved Date Right calf pain 02/10/2018 07/02/2021 Assessment & Plan (02/10/2018 12:59 PM EST): Some swelling and tenderness in the right calf and I think this definitely buys her and a ultrasound today to see if she is got a deep venous thrombosis. Other etiologies could be a gastroc or soleus musculotendinous strain. In any case I will call her with results. Encounters Date Type Department Care Team Description 06/14/2024 11:19 AM EDT - 06/14/2024 11:59 PM EDT Hospital Encounter [facility] [address] [place] [address] [place] [address] Brenda Villa MD Discharge Disposition: Home or Self Care 06/10/2024 2:15 PM EST Office Visit [address] [address] Brenda Villa MD Lumbar radiculopathy, chronic (Primary Dx); Onychoschizia; Osteopenia, unspecified location; Encounter for monitoring chronic NSAID therapy 05/30/2024 1:38 PM EST - 05/30/2024 11:59 PM EST Hospital Encounter [facility] - [address] [place] [address] Brenda Villa MD Discharge Disposition: Home or Self Care 05/22/[address] [address] Brenda Villa MD Medication Refill 04/08/[address] [address] Brenda Villa MD Medication Refill 03/31/[address] [address] Brenda Villa MD Referral (/[facility] Neurosurgery) 03/24/2024 11:54 AM EST - 03/24/2024 11:59 PM EST Hospital Encounter [facility] [address] [place] [address] [place] [address] Brenda Villa MD Discharge Disposition: Home or Self Care 03/24/2024 10:58 AM EST - 03/24/2024 11:53 AM EST Hospital Encounter [address] [place] [address] Brenda Villa MD Discharge Disposition: Home or Self Care 02/10/2024 Procedure Pass [address] [place] [address] 12/30/2023 Procedure Pass [facility] - [address] [place] [address] from Last 3 Months Immunizations Name Administration Dates Next Due COVID-19 (Pre-01/26) Moderna Vaccine, mRNA, PF 0 06/14/2020,05/17/2020 Influenza High-Dose Quadrivalent Preservative Fr ee IM 01/09/2023 Influenza High-Dose Trivalent Preservative Free IM 02/03/2024,01/09/2020 Influenza Quadrivalent Adjuvanted Preservative F ree IM 01/21/2022,01/05/2021 Influenza Trivalent Adjuvanted Preservative free IM 01/13/2019 Pneumococcal conjugate PCV20 01/29/2022 Td (adult),2 Lf Tetanus Toxoid, PF, Adsorbed Td, unspecified formulation 04/06/1998 Tdap 04/10/2009 Zoster recombinant 07/03/2022,02/19/2022 Family History Medical History Relation Comments CV disease Father 2 Stroke Maternal Grandmother 2 CV disease Mother 2 Hypertension Mother 2 Stroke Mother 2 Relation Status Comments Father 1 Father 2 Maternal Grandmother 1 Maternal Grandmother 2 Mother 1 Mother 2 Social History Tobacco Use Types Packs/Day Years [...] on file Sexual Orientation Not on file Last Filed Vital Signs Vital Sign Reading Time Taken Comments Blood Pressure 136/82 06/10/2024 2:15 PM EST Pulse 52 06/10/2024 2:15 PM EST Temperature 36.1 ??C (97 ??F) 06/10/2024 2:15 PM EST Respiratory Rate 18 08/18/2023 11:04 AM EDT Oxygen Saturation 100% 06/10/2024 2:15 PM EST Inhaled Oxygen Concentration - - Weight 64 kg (141 lb) 03/23/2024 4:04 PM EST Height 165.1 cm (5' 5 ) 03/23/2024 4:04 PM EST Body Mass Index 23.46 03/23/2024 4:04 PM EST Plan of Treatment Upcoming Encounters Date Type Department Care Team (Late st Contact Info) Description 04/21/2025 10:15 AM EST Appointment [facility], Bone Density - [address] [address] Brenda Villa MD [address] [place] [address], [address] [place], [place] [id number] [email or web address] Health Maintenance Due Date Last Done Comments OSTEOPOROSIS SCREENING INITIAL (ONE-TIME) 2009 RSV VACCINE (1 - 1-dose 75+ series) 11/06/2019 DEPRESSION SCREENING 01/26/2023 01/26/2022 TSH LEVEL 03/24/2025 03/24/2024, 0 07/2022, 12/12/2021, Additional history exists LIPID PANEL 01/08/2028 01/07/2023, 0 07/2022, 07/05/2021 Adult Td,Tdap Booster 06/01/2029 06/01/2019 , 04/10/2009, 04/06/1998 HEPATITIS C SCREENING Completed 01/29/2022, 022 PNEUMOCOCCAL VACCINES (50+ years) Completed 01/29/2022 ZOSTER VACCINES Completed 07/03/2022, 02/19/2022 COVID-19 VACCINE Completed 12/25/2023, 01/2023, 01/07/2022, Additional history exists INFLUENZA VACCINE Completed 02/03/2024, , 01/09/2023, Additional history exists SMOKING STATUS SCREENING (Once After 26 Yrs) Completed 06/10/2024 HEPATITIS A VACCINES Aged Out No long er eligible based on patient's age to complete this topic HIB VACCINES Aged Out No longer eligi ble based on patient's age to complete this topic MENINGOCOCCAL VACCINES (ACWY) Aged Out No longer eligible based on patient's age to complete this topic Medical Devices Not on file Procedures Procedure Name Priority Date/Time Associated Diagnosis Comments COMPREHENSIVE METABOLIC PANEL Routine 06/14/2024 11:20 AM EDT Encounter for monitoring chronic NSAID therapy CBC AND DIFFERENTIAL Routine 06/14/2024 11:20 AM EDT Encounter for monitoring chronic NSAID therapy BI MAMMOGRAM SCREENING WITH TOMOSYNTHESIS WITH CAD (BILATERAL) Routine 05/30/2024 2:12 PM EST Breast screening TSH WITH REFLEX Routine 03/24/2024 12:00 PM EST Palpitations MRI LUMBAR SPINE (NEURO) WITHOUT CONTRAST Routine 03/24/2024 11:48 AM EST Lumbar radiculopathy, chronic LIPID PANEL Routine 01/07/2023 12:26 PM EDT Screening for condition HEPATITIS C ANTIBODY, QUALITATIVE Routine 01/29/2022 11:43 AM EDT Need for hepatitis C screening test from Last 3 Months or Most Recently Relevant to Health Maintenance Results * (ABNORMAL) Comprehensive metabolic panel (06/14/2024 11:20 AM EDT) SODIUM 139 133 - 146 mmol/L [facility] POTASSIUM 5.0 3.3 - 5.1 mmol/L [facility] CHLORIDE 104 96 - 108 mmol/L [facility] CO2 30 21 - 35 mmol/L [facility] BUN 29(H) 6 - 19 mg/dL [facility] CREATININE 0.70 0.5 - 1.5 mg/dL [facility] GLUCOSE 95 70 - 99 mg/dL [facility] ALBUMIN 4.3 3.9 - 4.8 g/dL [facility] TOTAL PROTEIN 7.0 6.5 - 8.0 g/dL [facility] CALCIUM 9.4 8.4 - 10.3 mg/dL [facility] ALKALINE PHOSPHATASE 74 39 - 117 U/L [facility] TOTAL BILIRUBIN 0.4 0.0 - 1.2 mg/dL [facility] AST 31 0 - 37 U/L [facility] ALT 21 0 - 40 U/L [facility] GLOBULIN 2.7 1 - 4.8 g/dL [facility] EGFR 88 >59 mL/min/1.7 3m2 [facility] Comment:Estimated glomerular filtration rate calculated using the CKD-EPI refit equation. ANION GAP 10 10 - 20 mmol/L [facility] Blood 06/14/2024 11:2 0 AM EDT 06/14/2024 11:22 AM EDT Brenda Villa MD LAB BLOOD ORDERA BLES [facility] [address] [place] [address] * CBC and differential (06/14/2024 11:20 AM EDT) WBC 8.58 4.00 - 11.00 K/uL [facility] RBC 4.62 4.00 - 5.20 M/uL [facility] HGB 14.3 12.0 - 16.0 g/dL [facility] HCT 43.7 36.0 - 46.0 % [facility] PLT 224 150 - 450 K/uL [facility] MCV 94.6 80.0 - 100.0 fL [facility] MCH 31.0 27.0 - 31.0 pg [facility] MCHC 32.7 32.0 - 36.0 g/dL [facility] RDW 12.9 11.5 - 14.5 % [facility] MPV 10.7 8.4 - 12.0 fL [facility] NRBC 0.00 0.00 /100 WBCs [facility] ABSOLUTE NRBC 0.00 0.00 K/uL [facility] DIFF METHOD Auto [facility] NEUTS 54.9 48.0 - 76.0 % [facility] LYMPHS 32.9 18.0 - 41.0 % [facility] MONOS 7.6 4.0 - 11.0 % [facility] EOS 3.3 0.0 - 5.0 % [facility] BASOS 1.0 0.0 - 1.5 % [facility] Granulocytes, immature (%) 0.3 0.0 - 0.9 % [facility] ABSOLUTE NEUTS 4.71 1.92 - 7.60 K/uL [facility] ABSOLUTE LYMPHS 2.82 0.72 - 4.10 K/uL [facility] ABSOLUTE MONOS 0.65 0.16 - 1.10 K/uL [facility] ABSOLUTE EOS 0.28 0.00 - 0.50 K/uL [facility] ABSOLUTE BASOS 0.09 0.00 - 0.15 K/uL [facility] Granulocytes, immature 0.03 0.00 - 0.09 K/uL [facility] Blood 06/14/2024 11:2 0 AM EDT 06/14/2024 11:22 AM EDT Brenda Villa MD LAB BLOOD ORDERA BLES [address] [address] * BI MAMMOGRAM SCREENING WITH TOMOSYNTHESIS WITH [...] recommendations. Brenda Villa MD IMG MG EXAMS * TSH with reflex (03/24/2024 12:00 PM EST) TSH 2.57 0.27 - 4.20 uIU/mL [facility] Blood 03/24/2024 12:0 0 PM EST 03/24/2024 12:03 PM EST Brenda Villa MD LAB BLOOD ORDERA BLES [facility] [address] [place] [address] * MRI LUMBAR SPINE (NEURO) WITHOUT CONTRAST (03/24/2024 11:48 AM EST) Anatomical Region Laterality Modality L-spine Magnetic Resonan ce 03/25/2024 10:5 5 AM EST Impressions 03/25/2024 11:02 AM EST 1. ??Lumbar degenerative disc disease with a mild dextroconvex scoliosis. Slight interval progression in degree of degenerative change at L1-2 and L2-3 from the September 04, 2021 lumbar spine MRI. Narrative 03/25/2024 11:02 AM EST MRI LUMBAR SPINE (NEURO) WITHOUT CONTRAST Referring clinician's provided indication for this examination in Epic: * Lumbar radiculopathy, > 6 wks; worsening radicular sxs, last MRI 2021. Not responding to injections with physiatry TECHNIQUE: MRI LUMBAR SPINE (NEURO) WITHOUT CONTRAST Multi-sequence, multi-planar MRI of the lumbar spine was performed without intravenous contrast. COMPARISON: Lumbar spine MRI September 04, 2021 FINDINGS: LUMBAR SPINE: Alignment and Vertebrae: There is a mild dextroconvex lumbar scoliosis. No lumbar compression fracture or spondylolisthesis. Marrow: No bone marrow replacing lesion. Discs and Endplates: There is severe intervertebral disc at loss L4-5 and L5-S1. There is a small amount of marrow edema related to degenerative endplate change L4-5 and L5-S1. Conus: The conus terminates at the L1-2 level. The conus appears normal in signal intensity. Soft Tissues: Normal. No prevertebral edema. Other Findings: None. Findings by level: T12-L1: No spinal canal or neural foraminal narrowing. L1-L2: There is a disc bulge and facet arthropathy without spinal canal narrowing. There is mild left neural foraminal narrowing slightly worse from the prior study. L2-L3: There is mild spinal canal narrowing due to disc bulge and facet arthropathy. There is mild left neural foraminal narrowing. These findings appear slightly worse from prior study. L3-L4: There is mild spinal canal narrowing due to disc bulge and facet arthropathy. There is mild left neural foraminal narrowing. These findings appear similar the prior study. L4-L5: There is left subarticular narrowing due to disc bulge, posterior intervertebral osteophytes and facet arthropathy. No central spinal canal narrowing. There is moderate bilateral neural foraminal narrowing. These findings appear similar the prior study. L5-S1: There is bilateral subarticular narrowing due to disc bulge and facet arthropathy. No central spinal canal narrowing. There is moderate bilateral neural foraminal narrowing. These findings appear similar to the prior study. Procedure Note Von Peralta, DO - 03/25/2024 MRI LUMBAR SPINE (NEURO) WITHOUT CONTRAST Referring clinician's provided indication for this examination in Epic: *Lumbar radiculopathy, > 6 wks; worsening radicular sxs, last MRI 2021. Notresponding to injections with physiatry TECHNIQUE: MRI LUMBAR SPINE (NEURO) WITHOUT CONTRAST Multi-sequence, multi-planar MRI of the lumbar spine was performed withoutintravenous contrast. COMPARISON: Lumbar spine MRI September 04, 2021 FINDINGS: LUMBAR SPINE: Alignment and Vertebrae: There is a mild dextroconvex lumbar scoliosis. Nolumbar compression fracture or spondylolisthesis. Marrow: No bone marrow replacing lesion. Discs and Endplates: There is severe intervertebral disc at loss L4-5 andL5-S1. There is a small amount of marrow edema related to degenerativeendplate change L4-5 and L5-S1. Conus: The conus terminates at the L1-2 level. The conus appears normal insignal intensity. Soft Tissues: Normal. No prevertebral edema. Other Findings: None. Findings by level: T12-L1: No spinal canal or neural foraminal narrowing. L1-L2: There is a disc bulge and facet arthropathy without spinal canalnarrowing. There is mild left neural foraminal narrowing slightly worsefrom the prior study. L2-L3: There is mild spinal canal narrowing due to disc bulge and facetarthropathy. There is mild left neural foraminal narrowing. These findingsappear slightly worse from prior study. L3-L4: There is mild spinal canal narrowing due to disc bulge and facetarthropathy. There is mild left neural foraminal narrowing. These findingsappear similar the prior study. L4-L5: There is left subarticular narrowing due to disc bulge, posteriorintervertebral osteophytes and facet arthropathy. No central spinal canalnarrowing. There is moderate bilateral neural foraminal narrowing. Thesefindings appear similar the prior study. L5-S1: There is bilateral subarticular narrowing due to disc bulge andfacet arthropathy. No central spinal canal narrowing. There is moderatebilateral neural foraminal narrowing. These findings appear similar to theprior study. IMPRESSION: 1. Lumbar degenerative disc disease with a mild dextroconvex scoliosis.Slight interval progression in degree of degenerative change at L1-2 andL2-3 from the September 04, 2021 lumbar spine MRI. Brenda Villa MD IMG MR XSPECIALT Y * (ABNORMAL) Lipid panel (01/07/2023 12:26 PM EDT) HDL 61 mg/dL [facility] Comment: ? Interpretation <40 mg/dL: Low HDL cholesterol (major risk factor for CHD) Greater than or equal to 60 mg/dL: High HDL cholesterol ( negative risk factor for CHD) HDL - cholesterol is affected by a number of factors, e.g. smoking, excerise, hormones, sex and age. CHOLESTEROL 179 0 - 240 mg/dL [facility] TRIGLYCERIDES 143 30 - 160 mg/dL [facility] LDL 89 50 - 129 mg/dL [facility] Comment: LDL levels in terms of risk for coronary heart disease: <100 mg/dL: Optimal 100-129 mg/dL: Near or above optimal 130-159 mg/dL: Borderline high 160-189 mg/dL: High >190 mg/dL: Very High CARDIAC RISK RATIO 2.9(L) 3.3 - 4.4 C [facility] Blood 01/07/2023 12:2 6 PM EDT 01/07/2023 12:29 PM EDT Brenda Villa MD LAB BLOOD ORDERA BLES Performing Organization Address City/[facility]/ZIP Co de Phone Number [address] [address] * Hepatitis C antibody, qualitative (01/29/2022 11:43 AM EDT) HCV NON-REACTIV E NON-REACTI VE [facility] Blood 01/29/2022 11:4 3 AM EDT 01/29/2022 11:48 AM EDT Brenda Villa MD LAB BLOOD ORDERA BLES Performing Organization Address City/[facility] Co de Phone Number [address] [address] from Last 3 Months or Most Recently Relevant to Health Maintenance Bloniarz, Rosario Personal/Family Self [address] [place] [address] Bloniarz, Rosario Personal/Family Self [address] [place] [address] Bloniarz, Rosario Personal/Family Self [address] [facility] [place] Bloniarz, Rosario Personal/Family Self [address] [facility] [place] Bloniarz, Rosario Personal/Family Self [address] [facility] [place] Bloniarz, Rosario Personal/Family Self [address] [facility] [place] Bloniarz, Rosario Personal/Family Self [address] [facility] [place] [address] Care Teams Commercial Construction Project Manager Relationship Specialty Start Date End Date Brenda Villa MD [address] [place] [address] [address] [place] [address] [email or web address] PCP - General Family Medicine 08/19/23 Enrico Wagner MD [email or web address] Provider Rheumatology 07/02/21 Brenda Villa MD [address] [place] [address], [address] [place] [address] [email or web address] Insurance Assigned Provider 07/11/23 Additional Source Comments The information contained in this document represents components of the legal health record. It is not the complete legal health record.[facility]
--- OUTSIDE RECORDS SUMMARY | 2024-06-20 14:58 | XMS_ITS | Encounter Summary ---
Author Organization [facility] Address [address] [place] [address] Phone Care Team Providers Care Yield Engineer Name Role Phone Enrico Wagner MD Unavailable Brenda Villa MD Unavailable [phone] Brenda Villa MD Primary Care Provider + Encounter Details Date Type Department Care Team (Late st Contact Info) Description 10/01/2023 Ancillary Orders [facility], X-Ray - [address] [place] [address] Crystal Cuenca PA [address] [place] [id number] [email or web address] Spondylosis without myelopathy or radiculopathy, lumbar region (Primary Dx) Social History Tobacco [...] Info) Description 04/21/2025 10:15 AM EST Appointment [facility], Bone Density - [address] [address] Brenda Villa MD [address] [place] [address], [address] [place] [address] [email or web address] documented as of this encounter Results * XR LUMBOSACRAL SPINE 4 OR MORE VIEWS (10/01/2023 2:59 PM EDT) Anatomical Region Laterality Modality L-spine Computed Radiogr aphy 10/04/2023 11:1 3 AM EDT Impressions 10/04/2023 11:14 AM EDT Severe lumbar spine degenerative change. Narrative 10/04/2023 11:14 AM EDT XR LUMBOSACRAL SPINE 4 OR MORE VIEWS Referring clinician's provided indication for this examination in Epic: Pain REQUESTED INDICATION: Pain COMPARISON: MRI LUMBAR SPINE (BONE) WITHOUT CONTRAST FINDINGS: ALIGNMENT: Dextroconvex lumbar curvature. No spondylolisthesis. VERTEBRAE: Bones demineralized. Vertebral body heights preserved. DISCS: Disc heights preserved disc height loss and endplate sclerosis and marginal osteophytes at all levels.. FACETS: Facet arthropathy L2-S1. PARASPINAL SOFT TISSUES: Partially visualized left total hip arthroplasty. Procedure Note Zacarias Myles MD - 10/04/2023 XR LUMBOSACRAL SPINE 4 OR MORE VIEWS Referring clinician's provided indication for this examination in [facility]:Pain REQUESTED INDICATION: Pain COMPARISON: MRI LUMBAR SPINE (BONE) WITHOUT CONTRAST FINDINGS: ALIGNMENT: Dextroconvex lumbar curvature. No spondylolisthesis. VERTEBRAE: Bones demineralized. Vertebral body heights preserved. DISCS: Disc heights preserved disc height loss and endplate sclerosis andmarginal osteophytes at all levels.. FACETS: Facet arthropathy L2-S1. PARASPINAL SOFT TISSUES: Partially visualized left total hiparthroplasty. IMPRESSION: Severe lumbar spine degenerative change. 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, lumbar region documented in this encounter Additional Health Concerns Assessment Noted Time PHQ-2 Depression Total Score: 1 01/27/20 22 9:24 AM EDT documented as of this encounter Care Teams Yield Engineer Relationship Specialty Start Date End Date Brenda Villa MD [address] [place] [address], [address] [place] [address] PCP - General Family Medicine 08/19/23 Enrico Wagner MD [email or web address] Provider Rheumatology 07/02/21 Brenda Villa MD [address] [place] [address] 7 [place] [address] [email or web address] Insurance Assigned Provider 07/11/23 documented as of this encounter Additional Source Comments The information contained in this document represents components of the legal health record. It is not the complete legal health record.[facility]
--- OUTSIDE RECORDS SUMMARY | 2024-06-20 14:58 | XMS_ITS | Encounter Summary ---
Author Organization [facility] Address [address] [place] [address] Phone Care Team Providers Care Lean Manufacturing Coordinator Name Role Phone Enrico Wagner MD Unavailable Brenda Villa MD Unavailable [phone] Brenda Villa MD Primary Care Provider + Encounter Details Date Type Department Care Team (Late st Contact Info) Description 12/30/2023 Procedure Pass [facility] - [address] [place] [address] Social History Tobacco Use Types Packs/Day Years [...] Info) Description 04/21/2025 10:15 AM EST Appointment [facility], [address] [address] Brenda Villa MD [address] [place] [address] documented as of this encounter Visit Diagnoses Not on filedocumented in this encounter Additional Health Concerns Assessment Noted Time PHQ-2 Depression Total Score: 1 01/27/20 22 9:24 AM EDT documented as of this encounter Care Teams Lean Manufacturing Coordinator Relationship Specialty Start Date End Date Brenda Villa MD [address] [place] [address] 7 [place] [address] PCP - General Family Medicine 08/19/23 Enrico Wagner MD [email or web address] Consulting Provider Rheumatology 07/02/21 Brenda Villa MD [address] [place] [address] 7 [place] [address] [email or web address] Insurance Assigned Provider 07/11/23 documented as of this encounter Additional Source Comments The information contained in this document represents components of the legal health record. It is not the complete legal health record.[facility]
--- OUTSIDE RECORDS SUMMARY | 2024-06-20 14:58 | XMS_ITS | Encounter Summary ---
Author Organization [facility] Address [address] [place] [address] Phone Care Team Providers Care Water Quality Assistant Name Role Phone Brenda Villa MD Primary Care Provider + Enrico Wagner MD Unavailable Brenda Villa MD Unavailable [phone] Brenda Villa MD Primary Care Provider + Encounter Details Date Type Department Care Team (Late st Contact Info) Description 01/07/2023 Procedure Pass [facility] - [address] [place] [address] Social History Tobacco Use Types Packs/Day Years [...] high school, GED, job training, learning the Gren[place] language, technical skills, or developing parenting skills)? [...] Info) Description 04/21/2025 10:15 AM EST Appointment [facility], [address] [address] Brenda Villa MD [address] [place] [address], [address] [place] [address] documented as of this encounter Visit Diagnoses Not on filedocumented in this encounter Additional Health Concerns Assessment Noted Time PHQ-2 Depression Total Score: 1 01/27/20 22 9:24 AM EDT documented as of this encounter Care Teams Water Quality Assistant Relationship Specialty Start Date End Date Brenda Villa MD PCP - General Family Medicine 06/04/21 08/18/23 Brenda Villa MD [address] [facility] [address] [place] [address] [email or web address] PCP - General Family Medicine 08/19/23 Enrico Wagner MD [email or web address] Provider Rheumatology 07/02/21 Brenda Villa MD [address] [facility] [address] [place] [address] [email or web address] Insurance Assigned Provider 07/11/23 documented as of this encounter Additional Source Comments The information contained in this document represents components of the legal health record. It is not the complete legal health record.[facility]
--- OUTSIDE RECORDS SUMMARY | 2024-06-20 14:58 | XMS_ITS | Encounter Summary ---
Author Organization [facility] Address [address] [address] [place] [address] Phone Care Team Providers Care Process Design Chemical Engineer Name Role Phone Enrico Wagner MD Unavailable Brenda Villa MD Unavailable [phone] Brenda Villa MD Primary Care Provider + Encounter Details Date Type Department Care Team (Late st Contact Info) Description 10/02/2023 Telephone [employer] [facility] [address] [place], [place] [phone] Radha Daniel [place] [address] [place] [address] Social History Tobacco Use Types Packs/Day Years [...] Info) Description 04/21/2025 10:15 AM EST Appointment [facility], Bone [address] [address] Brenda Villa MD [address] [place] [address] [address] [place] [address] [email or web address] documented as of this encounter Visit Diagnoses Not on filedocumented in this encounter Additional Health Concerns Assessment Noted Time PHQ-2 Depression Total Score: 1 01/27/20 22 9:24 AM EDT documented as of this encounter Care Teams Process Design Chemical Engineer Relationship Specialty Start Date End Date Brenda Villa MD [address] [facility] [address] [place] [address] PCP - General Family Medicine 08/19/23 Enrico Wagner MD [email or web address] Consulting Provider Rheumatology 07/02/21 Brenda Villa MD [address] [place] [address] 7 [place] [address] [email or web address] Insurance Assigned Provider 07/11/23 documented as of this encounter Additional Source Comments The information contained in this document represents components of the legal health record. It is not the complete legal health record.[facility]
--- OUTSIDE RECORDS SUMMARY | 2024-06-20 14:58 | XMS_ITS | Encounter Summary ---
Author Organization [facility] Address [address] [facility] [address] [place] [address] Phone Care Team Providers Care Senior Property Accountant Name Role Phone Brenda Villa MD Primary Care Provider + Enrico Wagner MD Unavailable Brenda Villa MD Unavailable [phone] Brenda Villa MD Primary Care Provider + Reason for Referral * MRI/CAT Scan - Closed Specialty Diagnoses / Procedures Referred By Contac t Referred To Contact Radiology Diagnoses Low back pain, unspecified back pain laterality, unspecified chronicity, unspecified whether sciatica present Procedures MRI Lumbar Spine Kendall Ybarra MD [address] [place] [address] Referral ID Status Reason Start Date Expiration Date Visits Re quested Visits Authorized [id number] Closed 08/22/2021 08/22/2022 1 1 Encounter Details Date Type Department Care Team (Latest Contact Info) Description 08/22/2021 Transcribe Orders Virtual Department [address] [place] [address] Kendall Ybarra MD [address] [place] [address] Low back pain, unspecified back pain laterality, unspecified chronicity, unspecified whether sciatica present (Primary Dx) Social History Tobacco Use Types [...] high school, GED, job training, learning the [place] language, technical skills, or developing parenting skills)? [...] Info) Description 04/21/2025 10:15 AM EST Appointment [facility], [facility] [address] [place] [address] Brenda Villa MD [address] [place] [address], [address] [place] [address] [email or web address] documented as of this encounter Results * MRI LUMBAR SPINE (BONE) WITHOUT CONTRAST (09/04/2021 11:03 AM EDT) Anatomical Region Laterality Modality L-spine Magnetic Resonan ce 09/04/2021 11:2 9 AM EDT Impressions 09/04/2021 11:53 AM EDT 1.Advanced multilevel degenerative changes, more prominent at L4-L5 and L5-S1, not significantly progressed from 2020. 2.No acute compression fractures. Narrative 09/04/2021 11:53 AM EDT MRI LUMBAR SPINE (BONE) WITHOUT CONTRAST TECHNIQUE: Multi-sequence, multi-planar MRI of the lumbar spine was performed without intravenous contrast. COMPARISON: Radiographs of the lumbar spine on April 10, 2020. Lumbar spine MRI on April 10, 2020 FINDINGS: LUMBAR SPINE: Alignment and Vertebrae: Dextrocurvature of the spine is better seen on the prior radiograph. Minimal grade 1 retrolisthesis of L3 on L4. Grade 1 retrolisthesis of L4 on L5 and L5 on S1. No compression fracture. Marrow: No bone marrow replacing lesion. Discs and Endplates: Desiccation changes of all discs. Loss of disc height associated with endplate degenerative changes are more pronounced at L4-L5 and L5-S1 Conus: Normal. Soft Tissues: No prevertebral edema. Other Findings: Right extrarenal pelvis. Findings by level: T12-L1: Minimal bulging disc. No spinal or foraminal stenosis. L1-L2: Minimal bulging disc. No spinal or foraminal stenosis. L2-L3: Mild bulging disc with superimposed left foraminal disc protrusion contributes to mild left neuroforaminal stenosis. No spinal canal or right foraminal stenosis. L3-L4: Combination of anterolisthesis, bulging disc and superimposed left foraminal disc protrusion contributes to mild/moderate left foraminal stenosis and mild spinal canal stenosis. No right foraminal stenosis. L4-L5: Combination of retrolisthesis, posterior marginal osteophytes, bulging disc and hypertrophy of posterior elements results in moderate bilateral neuroforaminal stenosis, right greater than left. No spinal canal stenosis. L5-S1: Combination of retrolisthesis, posterior marginal osteophytes, bulging disc and hypertrophy of posterior elements results in severe bilateral neuroforaminal stenosis. No spinal canal stenosis. Multilevel degenerative changes are nonspecific but progressed from 2020. Procedure Note Renee Ng MD - 09/04/2021 MRI LUMBAR SPINE (BONE) WITHOUT CONTRAST TECHNIQUE: Multi-sequence, multi-planar MRI of the lumbar spine wasperformed without intravenous contrast. COMPARISON: Radiographs of the lumbar spine on April 10, 2020. Lumbarspine MRI on April 10, 2020 FINDINGS: LUMBAR SPINE: Alignment and Vertebrae: Dextrocurvature of the spine is better seen onthe prior radiograph. Minimal grade 1 retrolisthesis of L3 on L4. Grade 1retrolisthesis of L4 on L5 and L5 on S1. No compression fracture. Marrow: No bone marrow replacing lesion. Discs and Endplates: Desiccation changes of all discs. Loss of disc heightassociated with endplate degenerative changes are more pronounced at L4-L5and L5-S1 Conus: Normal. Soft Tissues: No prevertebral edema. Other Findings: Right extrarenal pelvis. Findings by level: T12-L1: Minimal bulging disc. No spinal or foraminal stenosis. L1-L2: Minimal bulging disc. No spinal or foraminal stenosis. L2-L3: Mild bulging disc with superimposed left foraminal disc protrusioncontributes to mild left neuroforaminal stenosis. No spinal canal or rightforaminal stenosis. L3-L4: Combination of anterolisthesis, bulging disc and superimposed leftforaminal disc protrusion contributes to mild/moderate left foraminalstenosis and mild spinal canal stenosis. No right foraminal stenosis. L4-L5: Combination of retrolisthesis, posterior marginal osteophytes,bulging disc and hypertrophy of posterior elements results in moderatebilateral neuroforaminal stenosis, right greater than left. No spinalcanal stenosis. L5-S1: Combination of retrolisthesis, posterior marginal osteophytes,bulging disc and hypertrophy of posterior elements results in severebilateral neuroforaminal stenosis. No spinal canal stenosis. Multilevel degenerative changes are nonspecific but progressed [id number]. IMPRESSION: 1.Advanced multilevel degenerative changes, more prominent at L4-L5 andL5-S1, not significantly progressed from 2020. 2.No acute compression fractures. Kendall Ybarra MD IMG MR XSPECIALTY documented in this encounter Visit Diagnoses Diagnosis Low back pain, unspecified back pain laterality, unspecified chronicity, unspecified whether sciatica present- Primary Low back pain, unspecified back pain laterality, unspecified chronicity, unspecified whether sciatica present documented in this encounter Additional Health Concerns Assessment Noted Time PHQ-2 Depression Total Score: 1 07/02/19 22 8:13 AM EDT documented as of this encounter Care Teams Senior Property Accountant Relationship Specialty Start Date End Date Brenda Villa MD PCP - General Family Medicine 06/04/21 08/18/23 Brenda Villa MD [address] [place] [address] [address] [place] [address] [email or web address] PCP - General Family Medicine 08/19/23 Enrico Wagner MD [email or web address] Consulting Provider Rheumatology 07/02/21 Brenda Villa MD [address] [place] [address] [address] [place] [address] Insurance Assigned Provider 07/11/23 documented as of this encounter Additional Source Comments The information contained in this document represents components of the legal health record. It is not the complete legal health record.[facility]
--- OUTSIDE RECORDS SUMMARY | 2024-06-20 14:58 | XMS_ITS | Encounter Summary ---
Author Organization [facility] [place] Address [address] [place] [address] Phone Care Team Providers Care Driller'S Assistant Name Role Phone Aida Gallardo DO Primary Care Provider [phone] Aida Gallardo DO Primary Care Provider Brenda Villa MD Primary Care Provider + Enrico Wagner MD Unavailable Brenda Villa MD Unavailable [phone] Brenda Villa MD Primary Care Provider + Encounter Details Date Type Department Care Team (Late st Contact Info) Description 05/22/2020 Procedure Pass [facility], Ct Scan - [address] [address] Social History Tobacco Use Types Packs/Day Years Used Date Smoking Tobacco: Never Smokeless Tobacco: Never Sex and Gender Information Value Date Recorded Sex Assigned at Not on file Gender Identity Not on file Sexual Orientation Not on file documented as of this encounter Plan of Treatment Upcoming Encounters Date Type Department Care Team (Late st Contact Info) Description 04/21/2025 10:15 AM EST Appointment [facility], Bone Density - [address] [address] Brenda Villa MD [address] [place] [address], [address] [place], [place] [id number] [email or web address] documented as of this encounter Visit Diagnoses Not on filedocumented in this encounter Care Teams Driller'S Assistant Relationship Specialty Start Date End Date Aida Gallardo DO [address] [place] [address] [email or web address] PCP - General Internal Medicine 01/29/17 05/19/21 Aida Gallardo DO [address] [place] [phone] [email or web address] PCP - General Internal Medicine 05/20/21 06/03/21 Brenda Villa MD [address] [place] [phone] [email or web address] PCP - General Family Medicine 06/04/21 08/18/23 Brenda Villa MD [address] [place] [address], [address] [place] [address] [email or web address] PCP - General Family Medicine 08/19/23 Enrico Wagner MD [address] [place] [address] [email or web address] Consulting Provider Rheumatology 07/02/21 Brenda Villa MD [address] [place] [address], [address] [place] [address] [email or web address] Insurance Assigned Provider 07/11/23 documented as of this encounter Additional Source Comments The information contained in this document represents components of the legal health record. It is not the complete legal health record.[facility]
== END 2024-06-20 14:17 | disposition home or self-care (01) ==
LOC: HO.HNS 12:51
PROVIDERS: PCP Family Medicine; Referring Provider Family Medicine; Visit Provider Physician Assistant
DX: M51.369 Other intervertebral disc degeneration, lumbar region without mention of lumbar back pain or lower extremity pain (principal)
CPT/HCPCS: 99204

== ENCOUNTER 2024-06-20 12:50 | Outpatient (REF) | payer MEDICARE, OTHER, SELFPAY ==
--- NOTE | ~2024-06-20 | XR_ITS ---
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 4 views lumbar spine Comparison: None Findings: Slight rightward curvature of the lumbar spine. Multilevel disc height loss with reactive endplate changes greatest at L3-4, L4-5 and L5-S1 with severe lower lumbar facet hypertrophy. Straightening of the normal lumbar lordosis. No instability on flexion extension. New line no acute appearing vertebral body height loss. IMPRESSION: Multilevel degenerative change greatest in the lower lumbar spine. No instability on flexion extension. This document has been electronically signed by: Neena Melara MD on 06/22/2024 08:58:56
== END 2024-06-20 12:51 | disposition home or self-care (01) ==
LOC: HO.HOSX 12:50
PROVIDERS: PCP Family Medicine; Referring Provider Family Medicine; Visit Provider Physician Assistant
DX: M51.360 Other intervertebral disc degeneration, lumbar region with discogenic back pain only (principal); G89.29 Other chronic pain; M81.0 Age-related osteoporosis without current pathological fracture
CPT/HCPCS: 72110; 99202

== ENCOUNTER → 2024-06-20 13:42 | Outpatient (BNV) | payer MEDICARE, OTHER, SELFPAY | PROVIDERS: PCP Family Medicine; Referring Provider Family Medicine; Visit Provider Radiology Diagnostic Radiology | DX: M51.369 Other intervertebral disc degeneration, lumbar region without mention of lumbar back pain or lower extremity pain (principal) | CPT/HCPCS: 72110 ==

== ENCOUNTER 2024-08-08 10:36 | Outpatient (REF) | payer MEDICARE, OTHER, SELFPAY ==
--- NOTE | ~2024-08-08 | CT_ITS ---
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 CT lumbar spine without contrast Comparison: DX - XR LUMBAR SPINE 4V MIN - 06/20/24 13:42 EDT Findings: There is straightening of the normal lumbar lordosis. There is complete disc space loss at L4-5 and L5-S1 with endplate sclerosis and marginal osteophytes No fracture or acute malalignment. Mild central canal stenosis at L3-L4 and L5-S1. There is multilevel neural foraminal narrowing present, most pronounced at L4-L5 bilaterally. The visualized retroperitoneal structures demonstrate no acute process. Impression: Advanced degenerative changes most pronounced within the lower lumbar spine. No acute process. This document has been electronically signed by: Parveen Smiley MD on 08/08/2024 13:08:56
--- OUTSIDE RECORDS SUMMARY | 2024-08-08 12:00 | XMS_ITS | Encounter Summary ---
Author Organization [facility] Address [address] [place] [address] Phone Care Team Providers Care Pass Worker Name Role Phone Aida Gallardo DO Primary Care Provider [phone] Aida Gallardo DO Primary Care Provider [phone] Brenda Villa MD Primary Care Provider + Enrico Wagner MD Unavailable Brenda Villa MD Unavailable [phone] Brenda Villa MD Primary Care Provider + Encounter Details Date Type Department Care Team (Late st Contact Info) Description 04/04/2020 Procedure Pass [address] [place] [address] Social History Tobacco Use Types Packs/Day Years [...] Info) Description 04/21/2025 10:15 AM EST Appointment , Bone [facility] [address] [place] [address] Brenda Villa MD [address] [place] [address] [address] [place] [address] documented as of this encounter Visit Diagnoses Not on filedocumented in this encounter Care Teams Pass Worker Relationship Specialty Start Date End Date Aida Gallardo DO [address] [place] [address] PCP - General Internal Medicine 01/29/17 05/19/21 Aida Gallardo DO [address] [place] [address] PCP - General Internal Medicine 05/20/21 06/03/21 Brenda Villa MD [address] [place] [address] PCP - General Family Medicine 06/04/21 08/18/23 Brenda Villa MD [address] [place] [address] [address] [place] [address] PCP - General Family Medicine 08/19/23 Enrico Wagner MD [address] [place] [address] [email or web address] Consulting Provider Rheumatology 07/02/21 Brenda Villa MD [address] [place] [address] [address] [place] [address] [email or web address] Insurance Assigned Provider 07/11/23 documented as of this encounter Additional Source Comments The information contained in this document represents components of the legal health record. It is not the complete legal health record.[facility]
--- OUTSIDE RECORDS SUMMARY | 2024-08-08 12:00 | XMS_ITS | Referral Summary ---
Author Organization [facility] Address [address] [place] [address] Care Team Providers Care Surgical Tech Name Role Phone Aida Gallardo Primary Care Provider [phone] Allergies Active Allergy Reactions Criticality Noted Date [...] of Treatment Not on file Insurance [facility]IC[facility] Care Teams Surgical Tech Relationship Specialty Start Date End Date Aida Gallardo [address] [place] [phone] PCP - General Internal Medicine 02/09/19
--- OUTSIDE RECORDS SUMMARY | 2024-08-08 12:00 | XMS_ITS | Encounter Summary ---
Author Organization [facility] Address [address] [place] [address] Phone Care Team Providers Care Bill Peddler Name Role Phone Aida Gallardo DO Primary Care Provider [phone] Aida Gallardo DO Primary Care Provider Brenda Villa MD Primary Care Provider + Enrico Wagner MD Unavailable Brenda Villa MD Unavailable Brenda Villa MD Primary Care Provider + Reason for Referral * MRI/CAT Scan - Closed Specialty Diagnoses / Procedures Referred By Quentin khan Referred To Contact Radiology Diagnoses Radiculopathy, lumbar region Procedures MRI Lumbar Spine Abner Pabon, DO [address] [place] [address] Referral ID Status Reason Start Date Expiration Date Visits Re quested Visits Authorized [id number] Closed 04/04/2020 04/04/2021 1 1 Encounter Details Date Type Department Care Team (Latest Contact Info) Description 04/04/2020 Transcribe Orders Virtual Department [address] [place] [address] Abner Pabon, DO [address] [place] [phone] [email or web address] Radiculopathy, lumbar region (Primary Dx) Social History [...] Info) Description 04/21/2025 10:15 AM EST Appointment [facility], Bone Density [address] [address] Brenda Villa MD [address] [place] [address], [facility] [address] [place] [address] [email or web address] documented as of this encounter Results * [...] unspecified documented in this encounter Care Teams Bill Peddler Relationship Specialty Start Date End Date Aida Gallardo DO [address] [place] [phone] PCP - General Internal Medicine 01/29/17 05/19/21 Aida Gallardo DO [address] [place] [address] PCP - General Internal Medicine 05/20/21 06/03/21 Brenda Villa MD [address] [place] [address] PCP - General Family Medicine 06/04/21 08/18/23 Brenda Villa MD [address] [place] [address] 7 [place] [address] PCP - General Family Medicine 08/19/23 Enrico Wagner MD [address] [place] [address] [email or web address] Consult[employer] Provider Rheumatology 07/02/21 Brenda Villa MD [address] [place] [address], [address] [place] [address] [email or web address] Insurance Assigned Provider 07/11/23 documented as of this encounter Additional Source Comments The information contained in this document represents components of the legal health record. It is not the complete legal health record.[facility]
--- OUTSIDE RECORDS SUMMARY | 2024-08-08 12:00 | XMS_ITS | Clinical Summary ---
Author Organization [facility] Address [address] [place] [address] Care Team Providers Care Caddy Master Name Role Phone Aida Gallardo Primary Care Provider [phone] Allergies Active Allergy Reactions Criticality Noted Date [...] 1-dose 75+ series) 11/06/2019 COVID-19 Vaccine ( season) 2023 02/06/2021, 06/14/2020, 05/17/2020 Alcohol/Substance Use Screening 04/06/2024 Depression Screening and Follow-Up 04/06/2024 Health Care Proxy Review 04/06/2024 Social Drivers of Health Annual Screening 04/06/2024 Influenza Vaccine (Season Ended) 2024 01/21/2022, 01/05/2021, 01/09/2020, Additional history exists DTaP,Tdap,and Td Vaccines (3 - Td or Tdap) 06/01/2029 06/01/2019, 04/10/2009, 04/06/1998 Pneumococcal Vaccine: 50+ Years Completed 01/29/2022 Hepatitis B Vaccines Aged Out No long er eligible based on patient's age to complete this topic Insurance MEDICARE [facility] [place] [address] MEDICARE Care Teams Caddy Master Relationship Specialty Start Date End Date Aida Gallardo [address] [place] [phone] PCP - General Internal Medicine 02/09/19
--- OUTSIDE RECORDS SUMMARY | 2024-08-08 12:00 | XMS_ITS | Encounter Summary ---
Author Organization [facility] Address [address] [place] [address] Phone Care Team Providers Care Industrial Service Technician Name Role Phone Aida Gallardo DO Primary Care Provider [phone] Aida Gallardo DO Primary Care Provider Brenda Villa MD Primary Care Provider + Enrico Wagner MD Unavailable Brenda Villa MD Unavailable Brenda Villa MD Primary Care Provider + Encounter Details Date Type Department Care Team (Late st Contact Info) Description 05/08/2020 Ancillary Orders [facility] Department [address] [place] [address] Abner Pabon, DO [address] [place] [phone] [email or web address] Pain in right hip Social History Tobacco [...] Info) Description 04/21/2025 10:15 AM EST Appointment [facility], Bone [address] [address] Brenda Villa MD [address] [place] [address], [address] [place] [address] [email or web address] documented as of this encounter Results * [...] hip documented in this encounter Care Teams Industrial Service Technician Relationship Specialty Start Date End Date Aida Gallardo DO [address] [place] [address] PCP - General Internal Medicine 01/29/17 05/19/21 Aida Gallardo DO [address] [place] [address] PCP - General Internal Medicine 05/20/21 06/03/21 Brenda Villa MD [address] [place] [address] [email or web address] PCP - General Family Medicine 06/04/21 08/18/23 Brenda Villa MD [address] [place] [address] 7 [place] [address] PCP - General Family Medicine 08/19/23 Enrico Wagner MD [address] [place] [address] [email or web address] Consulting Provider Rheumatology 07/02/21 Brenda Villa MD [address] [place] [address] 7 [place] [address] [email or web address] Insurance Assigned Provider 07/11/23 documented as of this encounter Additional Source Comments The information contained in this document represents components of the legal health record. It is not the complete legal health record.[facility]
--- OUTSIDE RECORDS SUMMARY | 2024-08-08 12:01 | XMS_ITS | Encounter Summary ---
Author Organization [facility] Address [address] [place] [address] Phone Care Team Providers Care Frozen Food Selector Name Role Phone Enrico Wagner MD Unavailable Brenda Villa MD Unavailable [phone] Brenda Villa MD Primary Care Provider + Encounter Details Date Type Department Care Team (Late st Contact Info) Description 02/10/2024 Procedure Pass [facility], [address] [place] [address] Social History Tobacco Use Types Packs/Day Years [...] Info) Description 04/21/2025 10:15 AM EST Appointment [address] [address] Brenda Villa MD [address] [place] [address] [email or web address] documented as of this encounter Visit Diagnoses Not on filedocumented in this encounter Additional Health Concerns Assessment Noted Time PHQ-2 Depression Total Score: 1 01/27/20 22 9:24 AM EDT documented as of this encounter Care Teams Frozen Food Selector Relationship Specialty Start Date End Date Brenda Villa MD [address] [facility] [address] [place] [address] [email or web address] PCP - General Family Medicine 08/19/23 Enrico Wagner MD [email or web address] Consulting Provider Rheumatology 07/02/21 Brenda Villa MD [address] [place] [address] 7 [place] [address] [email or web address] Insurance Assigned Provider 07/11/23 documented as of this encounter Additional Source Comments The information contained in this document represents components of the legal health record. It is not the complete legal health record.[facility]
--- OUTSIDE RECORDS SUMMARY | 2024-08-08 12:01 | XMS_ITS | Encounter Summary ---
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 [...] Info) Description 04/21/2025 10:15 AM EST Appointment [facility], Bone [address] [address] Brenda Villa MD [address] [place] [address], [place] [address] [place] [address] [email or web address] documented as of this encounter Results * [...] Inferior femoral stem not included in the cgvca-[id number]-daeb. Visualized hardware is intact and in unchanged [...] arthroplasty. Inferiorfemoral stem not included in the pszke-bx-eult. Visualized hardware isintact and in unchanged alignment. [...] documented as of this encounter Care Teams Multiple Knife Edge Trimmer Operator Relationship Specialty Start Date End Date Brenda Villa MD PCP - General Family Medicine 06/04/21 08/18/23 Brenda Villa MD [address] [place] [address] [address] [place] [address] [email or web address] PCP - General Family Medicine 08/19/23 Enrico Wagner MD [email or web address] Provider Rheumatology 07/02/21 Brenda Villa MD [address] [place] [address] [address] [place] [address] [email or web address] Insurance Assigned Provider 07/11/23 documented as of this encounter Additional Source Comments The information contained in this document represents components of the legal health record. It is not the complete legal health record.[facility]
--- OUTSIDE RECORDS SUMMARY | 2024-08-08 12:01 | XMS_ITS | Encounter Summary ---
Author Organization [facility] Address [address] [facility] [address] [place] [address] Phone Care Team Providers Care Spareribs Trimmer Name Role Phone Brenda Villa MD Primary Care Provider + Enrico Wagner MD Unavailable Brenda Villa MD Unavailable [phone] Brenda Villa MD Primary Care Provider + Encounter Details Date Type Department Care Team (Late st Contact Info) Description 08/22/2021 Procedure Pass [address] [place] [address] Social History Tobacco Use Types Packs/Day Years [...] high school, GED, job training, learning the Salvadorean language, technical skills, or developing parenting skills)? [...] Info) Description 04/21/2025 10:15 AM EST Appointment [facility], [address] [address] Brenda Villa MD [address] [facility], [facility] 7 [place] [address] documented as of this encounter Visit Diagnoses Not on filedocumented in this encounter Additional Health Concerns Assessment Noted Time PHQ-2 Depression Total Score: 1 07/02/19 22 8:13 AM EDT documented as of this encounter Care Teams Spareribs Trimmer Relationship Specialty Start Date End Date Brenda Villa MD PCP - General Family Medicine 06/04/21 08/18/23 Brenda Villa MD [address] [facility], [address] [place] [address] PCP - General Family Medicine 08/19/23 Enrico Wagner MD [email or web address] Consult[employer] Provider Rheumatology 07/02/21 Brenda Villa MD [address] [place] [address] 7 [place] [address] [email or web address] Insurance Assigned Provider 07/11/23 documented as of this encounter Additional Source Comments The information contained in this document represents components of the legal health record. It is not the complete legal health record.[facility]
--- OUTSIDE RECORDS SUMMARY | 2024-08-08 12:01 | XMS_ITS | Encounter Summary ---
Author Organization [facility] Address [address] [facility] [address] [place] [address] Phone Care Team Providers Care Poker Dealer Name Role Phone Enrico Wagner MD Unavailable Brenda Villa MD Unavailable [phone] Brenda Villa MD Primary Care Provider + Encounter Details Date Type Department Care Team (Late st Contact Info) Description 07/13/2024 Orders Only [facility] [address] [place] [address] Provider, MD [facility] [address] [place] [address] Social History Tobacco Use Types Packs/Day Years [...] Info) Description 04/21/2025 10:15 AM EST Appointment [facility], [address] [address] Brenda Villa MD [address] [place] [address], [address] [place] [address] [email or web address] documented as of this encounter Procedures Procedure Name Priority Date/Time Associated Diagnosis Comments OUTSIDE XR IMAGING REPORT ONLY Routine 06/20/2024 8:23 AM EDT documented in this encounter Results * Outside XR Imaging Report Only (06/20/2024 8:23 AM EDT) Historical Provider MD DEL CASTILLO XR CHEST documented in this encounter Visit Diagnoses Not on filedocumented in this encounter Additional Health Concerns Assessment Noted Time PHQ-2 Depression Total Score: 1 01/27/20 22 9:24 AM EDT documented as of this encounter Care Teams Poker Dealer Relationship Specialty Start Date End Date Brenda Villa MD [address] [facility], [address] [place] [address] [email or web address] PCP - General Family Medicine 08/19/23 Enrico Wagner MD [email or web address] Consult[employer] Provider Rheumatology 07/02/21 Brenda Villa MD [address] [facility], [address] [place] [address] [email or web address] Insurance Assigned Provider 07/11/23 documented as of this encounter Additional Source Comments The information contained in this document represents components of the legal health record. It is not the complete legal health record.[facility]
--- OUTSIDE RECORDS SUMMARY | 2024-08-08 12:01 | XMS_ITS | Encounter Summary ---
Author Organization [facility] Address [address] [facility] [address] [place] [address] Phone Care Team Providers Care Kiln Feeder Name Role Phone Aida Gallardo DO Primary Care Provider [phone] Aida Gallardo DO Primary Care Provider [phone] Brenda Villa MD Primary Care Provider + Enrico Wagner MD Unavailable Brenda Villa MD Unavailable [phone] Brenda Villa MD Primary Care Provider + Encounter Details Date Type Department Care Team (Late st Contact Info) Description 06/11/2018 Procedure Pass [address] [place] [address] Social History Tobacco Use Types Packs/Day Years [...] Info) Description 04/21/2025 10:15 AM EST Appointment [facility], [facility] [address] [place] [address] Brenda Villa MD [address] [place] [address], [facility] 7 [place] [address] documented as of this encounter Visit Diagnoses Not on filedocumented in this encounter Care Teams Kiln Feeder Relationship Specialty Start Date End Date Aida Gallardo DO [address] [place] [address] PCP - General Internal Medicine 01/29/17 05/19/21 Aida Gallardo DO [address] [place] [address] PCP - General Internal Medicine 05/20/21 06/03/21 Brenda Villa MD [address] [place] [address] PCP - General Family Medicine 06/04/21 08/18/23 Brenda Villa MD [address] [place] [address] 7 [place] [address] PCP - General Family Medicine 08/19/23 Enrico Wagner MD [address] [place] [address] [email or web address] Consulting Provider Rheumatology 07/02/21 Brenda Villa MD [address] [place] [address] 7 [place] [address] [email or web address] Insurance Assigned Provider 07/11/23 documented as of this encounter Additional Source Comments The information contained in this document represents components of the legal health record. It is not the complete legal health record.[facility]
--- OUTSIDE RECORDS SUMMARY | 2024-08-08 12:01 | XMS_ITS | Encounter Summary ---
Author Organization [facility] Address [address] [facility] [address] [place] [address] Phone Care Team Providers Care Fur Remodeler Name Role Phone Brenda Villa MD Primary Care Provider + Enrico Wagner MD Unavailable Brenda Villa MD Unavailable [phone] Brenda Villa MD Primary Care Provider + Encounter Details Date Type Department Care Team (Late st Contact Info) Description 01/07/2023 Procedure Pass [facility] - [address] [place] [address] Social History Tobacco Use Types Packs/Day Years [...] high school, GED, job training, learning the Samoan language, technical skills, or developing parenting skills)? [...] Info) Description 04/21/2025 10:15 AM EST Appointment [facility], [address] [address] Brenda Villa MD [address] [place] [address], [address] [place] [address] documented as of this encounter Visit Diagnoses Not on filedocumented in this encounter Additional Health Concerns Assessment Noted Time PHQ-2 Depression Total Score: 1 01/27/20 22 9:24 AM EDT documented as of this encounter Care Teams Fur Remodeler Relationship Specialty Start Date End Date Brenda Villa MD [email or web address] PCP - General Family Medicine 06/04/21 08/18/23 Brenda Villa MD [address] [facility] [address] [place] [address] [email or web address] PCP - General Family Medicine 08/19/23 Enrico Wagner MD [email or web address] [email or web address] Provider Rheumatology 07/02/21 Brenda Villa MD [address] [facility] [address] [place] [address] [email or web address] Insurance Assigned Provider 07/11/23 documented as of this encounter Additional Source Comments The information contained in this document represents components of the legal health record. It is not the complete legal health record.[facility]
--- OUTSIDE RECORDS SUMMARY | 2024-08-08 12:01 | XMS_ITS | Encounter Summary ---
Author Organization [facility] Address [address] [place] [address] Phone Care Team Providers Care Key Worker Name Role Phone Enrico Wagner MD Unavailable Brenda Villa MD Unavailable [phone] Brenda Villa MD Primary Care Provider + Encounter Details Date Type Department Care Team (Late st Contact Info) Description 12/30/2023 Procedure Pass [facility] - [address] [place] [address] Social History Tobacco Use Types Packs/Day Years [...] Description 04/21/2025 10:15 AM EST Appointment [facility], [address] [address] Brenda Villa MD [address] [place] [address] documented as of this encounter Visit Diagnoses Not on filedocumented in this encounter Additional Health Concerns Assessment Noted Time PHQ-2 Depression Total Score: 1 01/27/20 22 9:24 AM EDT documented as of this encounter Care Teams Key Worker Relationship Specialty Start Date End Date Brenda Villa MD [address] [place] [address] 7 [place] [address] PCP - General Family Medicine 08/19/23 Enrico Wagner MD [email or web address] Consulting Provider Rheumatology 07/02/21 Brenda Villa MD [address] [place] [address] 7 [place] [address] [email or web address] Insurance Assigned Provider 07/11/23 documented as of this encounter Additional Source Comments The information contained in this document represents components of the legal health record. It is not the complete legal health record.[facility]
--- OUTSIDE RECORDS SUMMARY | 2024-08-08 12:01 | XMS_ITS | Encounter Summary ---
Author Organization [facility] Address [address] [place] [address] Phone Care Team Providers Care Human Anatomy Teacher Name Role Phone Aida Gallardo DO Primary Care Provider Aida Gallardo DO Primary Care Provider Brenda Villa MD Primary Care Provider + Enrico Wagner MD Unavailable Brenda Villa MD Unavailable [phone] Brenda Villa MD Primary Care Provider + Encounter Details Date Type Department Care Team (Late st Contact Info) Description 10/11/2018 Procedure Pass [address] [address] Social History Tobacco Use Types Packs/Day Years Used Date Smoking Tobacco: Never Smokeless Tobacco: Never Sex and Gender Information Value Date Recorded Sex Assigned at Not on file Gender Identity Not on file Sexual Orientation Not on file documented as of this encounter Plan of Treatment Upcoming Encounters Date Type Department Care Team (Late st Contact Info) Description 04/21/2025 10:15 AM EST Appointment [facility], [facility] - [address] [address] Brenda Villa MD [address] [place] [address], [address] [place], [place] [id number] documented as of this encounter Visit Diagnoses Not on filedocumented in this encounter Care Teams Human Anatomy Teacher Relationship Specialty Start Date End Date Aida Gallardo DO [address] [place] [address] PCP - General Internal Medicine 01/29/17 05/19/21 Aida Gallardo DO [address] [place] [address] PCP - General Internal Medicine 05/20/21 06/03/21 Brenda Villa MD [address] [place] [address] PCP - General Family Medicine 06/04/21 08/18/23 Brenda Villa MD [address] [place] [address], [address] [place] [address] PCP - General Family Medicine 08/19/23 Enrico Wagner MD [address] [place] [address] [email or web address] Consulting Provider Rheumatology 07/02/21 Brenda Villa MD [address] [place] [address], [address] [place] [address] [email or web address] Insurance Assigned Provider 07/11/23 documented as of this encounter Additional Source Comments The information contained in this document represents components of the legal health record. It is not the complete legal health record.[facility]
--- OUTSIDE RECORDS SUMMARY | 2024-08-08 12:01 | XMS_ITS | Encounter Summary ---
Author Organization [facility] Address [address] [facility] [address] [place] [address] Phone Care Team Providers Care Cable Splicer Name Role Phone Brenda Villa MD Primary Care Provider + Enrico Wagner MD Unavailable Brenda Villa MD Unavailable [phone] Brenda Villa MD Primary Care Provider + Encounter Details Date Type Department Care Team (Latest Contact Info) Description 12/11/2021 Transcribe Orders Virtual Department [address] [place] [address] Sebastien Luis MD [address] [place] [address] Hip discomfort, right (Primary Dx) Social History [...] high school, GED, job training, learning the Micronesian language, technical skills, or developing parenting skills)? [...] Info) Description 04/21/2025 10:15 AM EST Appointment [facility], [facility] [address] [address] Brenda Villa MD [address] [place] [address] [email or web address] documented as of this encounter Visit Diagnoses Diagnosis Hip discomfort, right- Primary documented in this encounter Additional Health Concerns Assessment Noted Time PHQ-2 Depression Total Score: 1 07/02/19 22 8:13 AM EDT documented as of this encounter Care Teams Cable Splicer Relationship Specialty Start Date End Date Brenda Villa MD [email or web address] PCP - General Family Medicine 06/04/21 08/18/23 Brenda Villa MD [address] [place] [address] 7 [place] [address] [email or web address] PCP - General Family Medicine 08/19/23 Enrico Wagner MD [email or web address] Consulting Provider Rheumatology 07/02/21 Brenda Villa MD [address] [facility] 7 [place] [address] [email or web address] Insurance Assigned Provider 07/11/23 documented as of this encounter Additional Source Comments The information contained in this document represents components of the legal health record. It is not the complete legal health record.[facility]
--- OUTSIDE RECORDS SUMMARY | 2024-08-08 12:01 | XMS_ITS | Encounter Summary ---
Author Organization [facility] Address [address] [facility] [address] [place] [address] Phone Care Team Providers Care Bristle Machine Operator Name Role Phone Brenda Villa MD Primary Care Provider + Enrico Wagner MD Unavailable Brenda Villa MD Unavailable [phone] Brenda Villa MD Primary Care Provider + Reason for Referral * MRI/CAT Scan - Closed Specialty Diagnoses / Procedures Referred By Contac t Referred To Contact Radiology Diagnoses Low back pain, unspecified back pain laterality, unspecified chronicity, unspecified whether sciatica present Procedures MRI Lumbar Spine Kendall Ybarra MD [address] [place] [address] Referral ID Status Reason Start Date Expiration Date Visits Re quested Visits Authorized [id number] Closed 08/22/2021 08/22/2022 1 1 Encounter Details Date Type Department Care Team (Latest Contact Info) Description 08/22/2021 Transcribe Orders Virtual Department [address] [place] [address] Kendall Ybarra MD [address] [place] [address] Low back pain, unspecified back [...] Info) Description 04/21/2025 10:15 AM EST Appointment [facility], [facility] - [facility] [address] [place] [address] Brenda Villa MD [address] [place] [address], [address] [place] [address] [email or web address] documented as of this encounter Results * [...] Multilevel degenerative changes are nonspecific but progressed [id number]. IMPRESSION: 1.Advanced multilevel degenerative changes, more prominent [...] documented as of this encounter Care Teams Bristle Machine Operator Relationship Specialty Start Date End Date Brenda Villa MD PCP - General Family Medicine 06/04/21 08/18/23 Brenda Villa MD [address] [place] [address] 7 [place] [address] [email or web address] PCP - General Family Medicine 08/19/23 Enrico Wagner MD [email or web address] Consulting Provider Rheumatology 07/02/21 Brenda Villa MD [address] [place] [address] 7 [place] [address] Insurance Assigned Provider 07/11/23 documented as of this encounter Additional Source Comments The information contained in this document represents components of the legal health record. It is not the complete legal health record.[facility]
--- OUTSIDE RECORDS SUMMARY | 2024-08-08 12:01 | XMS_ITS | Encounter Summary ---
Author Organization [facility] Address [address] [facility] [address] [place] [address] Phone Care Team Providers Care Mathematical Statistician Name Role Phone Enrico Wagner MD Unavailable Brenda Villa MD Unavailable [phone] Brenda Villa MD Primary Care Provider + Encounter Details Date Type Department Care Team (Late st Contact Info) Description 10/01/2023 Ancillary Orders [facility], X-Ray - [address] [place] [address] Crystal Cuenca PA [address] [place] [address] [email or web address] Spondylosis without myelopathy or radiculopathy, lumbar [...] Info) Description 04/21/2025 10:15 AM EST Appointment [facility], [facility] Density - [address] [address] Brenda Villa MD [address] [place] [address], [address] [place] [address] [email or web address] documented as of this encounter Results * [...] clinician's provided indication for this examination in [facility]:Pain REQUESTED INDICATION: Pain COMPARISON: MRI LUMBAR [...] documented as of this encounter Care Teams Mathematical Statistician Relationship Specialty Start Date End Date Brenda Villa MD [address] [place] [address], [address] [place] [address] PCP - General Family Medicine 08/19/23 Enrico Wagner MD [email or web address] Consult[employer] Provider Rheumatology 07/02/21 Brenda Villa MD [address] [place] [address] 7 [place] [address] [email or web address] Insurance Assigned Provider 07/11/23 documented as of this encounter Additional Source Comments The information contained in this document represents components of the legal health record. It is not the complete legal health record.[facility]
--- OUTSIDE RECORDS SUMMARY | 2024-08-08 12:01 | XMS_ITS | Clinical Summary ---
Author Organization [facility] Address [address] [facility] [address] [place] [address] Phone Care Team Providers Care Manager Of Allied Health Services Name Role Phone Enrico Wagner MD Unavailable Brenda Villa MD Unavailable [phone] Brenda Villa MD Primary Care Provider + Allergies Active Allergy Reactions Criticality Noted Date Comments Codeine 06/01/2018 Nitrofurantoin Monohyd/M-Cryst Fever 08/08 Medications Medication Sig Dispensed Refills Start Date End Date Status b complex vitamins tablet Take 1 tablet by mouth daily. 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 Apply over nail and surrounding skin. Apply daily over previous coat. After seven (7) days, may remove with alcohol and continue cycle. 6.6 mL 5 07/07/2023 Active celecoxib (CELEBREX) 200 MG capsuleIndications:P olyarticular osteoarthritis TAKE 1 CAPSULE BY MOUTH EVERY DAY 90 capsule 3 04/12/2024 Active levothyroxine (SYNTHROID, LEVOTHROID) 50 MCG tabletIndications:Ac quired hypothyroidism TAKE 1 TABLET BY MOUTH EVERY DAY 90 tablet 3 05/24/2024 Active clobetasol (TEMOVATE) 0.05 % ointmentIndications: Onychoschizia Apply topically 2 (two) times a day as needed (hand rash). 60 g 1 06/10/2024 Active Active Problems Problem Noted Date Diagnosed [...] spinal stenosis 06/11/2018 Overview (08/23/2022): Seen by [facility] reimbursement specialist 2021 and declined surgery at that [...] 50% of this 28-minute visit was spent [id number] conversation with the patient going over her [...] growth which was discussed in detail. Enlarged sephora product consultant on tools and utensils and warmth to [...] Encounters Date Type Department Care Team Description 07/13/2024 Orders Only [facility] [address] [place] [address] Provider, MD Filemon 06/14/2024 11:19 AM EDT - 06/14/2024 11:59 PM EDT Hospital Encounter [facility] [address] [place] [address] [place] [address] Brenda Villa MD Discharge Disposition: Home or Self Care 06/10/2024 2:15 PM EST Office Visit [facility] [address] [place] [address] Brenda Villa MD Lumbar radiculopathy, chronic (Primary Dx); Onychoschizia; Osteopenia, unspecified location; Encounter for monitoring chronic NSAID therapy 05/30/2024 1:38 PM EST - 05/30/2024 11:59 PM EST Hospital Encounter [address] [place] [address] Brenda Villa MD Discharge Disposition: Home or Self Care 05/22/[address] [address] Brenda Villa MD Medication Refill 12/30/2023 Procedure Pass [address] [place] [address] from Last 3 Months Immunizations Name Administration [...] Info) Description 04/21/2025 10:15 AM EST Appointment [facility], Bone Density - [address] [address] Brenda Villa MD [address] [place] [address], [address] [place] [address] [email or web address] Health Maintenance Due Date Last Done Comments OSTEOPOROSIS SCREENING INITIAL (ONE-TIME) 2009 RSV VACCINE (1 - 1-dose 75+ series) 11/06/2019 DEPRESSION SCREENING 01/26/2023 01/26/2022 TSH LEVEL 03/24/2025 03/24/2024, 07/2022, 12/12/2021, Additional history exists LIPID PANEL 01/08/2028 01/07/2023, 07/2022, 07/05/2021 Adult Td,Tdap Booster 06/01/2029 06/01/2019 [...] REPORT ONLY Routine 06/20/2024 8:23 AM EDT COMPREHENSIVE METABOLIC PANEL Routine 06/14/2024 11:20 AM EDT Encounter for monitoring chronic NSAID therapy CBC AND DIFFERENTIAL Routine 06/14/2024 11:20 AM EDT Encounter for monitoring chronic NSAID therapy BI MAMMOGRAM SCREENING WITH TOMOSYNTHESIS WITH CAD (BILATERAL) Routine 05/30/2024 2:12 PM EST Breast screening TSH WITH REFLEX Routine 03/24/2024 12:00 PM EST Palpitations LIPID PANEL Routine 01/07/2023 12:26 PM EDT Screening for condition HEPATITIS C ANTIBODY, QUALITATIVE Routine 01/29/2022 11:43 AM EDT Need for hepatitis C screening test from Last 3 Months or Most Recently Relevant to Health Maintenance Results * Outside XR Imaging Report Only (06/20/2024 8:23 AM EDT) Historical Provider MD DEL CASTILLO XR CHEST * (ABNORMAL) Comprehensive metabolic panel (06/14/2024 11:20 AM EDT) SODIUM 139 133 - 146 mmol/L [facility] POTASSIUM 5.0 3.3 - 5.1 mmol/L [facility] CHLORIDE 104 96 - 108 mmol/L [facility] CO2 30 21 - 35 mmol/L [facility] BUN 29(H) 6 - 19 mg/dL [facility] CREATININE 0.70 0.5 - 1.5 mg/dL [facility] GLUCOSE 95 70 - 99 mg/dL [facility] ALBUMIN 4.3 3.9 - 4.8 g/dL [facility] TOTAL PROTEIN 7.0 6.5 - 8.0 g/dL [facility] CALCIUM 9.4 8.4 - 10.3 mg/dL [facility] ALKALINE PHOSPHATASE 74 39 - 117 U/L [facility] TOTAL BILIRUBIN 0.4 0.0 - 1.2 mg/dL [facility] AST 31 0 - 37 U/L [facility] ALT 21 0 - 40 U/L [facility] GLOBULIN 2.7 1 - 4.8 g/dL [facility] EGFR 88 >59 mL/min/1.7 3m2 [facility] Comment:Estimated glomerular filtration rate calculated using the CKD-EPI refit equation. ANION GAP 10 10 - 20 mmol/L [facility] Blood 06/14/2024 11:2 0 AM EDT 06/14/2024 11:22 AM EDT Brenda Villa MD LAB BLOOD ORDERA BLES [facility] [address] [place] [address] * CBC and differential (06/14/2024 11:20 AM EDT) WBC 8.58 4.00 - 11.00 K/uL [facility] RBC 4.62 4.00 - 5.20 M/uL [facility] HGB 14.3 12.0 - 16.0 g/dL [facility] HCT 43.7 36.0 - 46.0 % [facility] PLT 224 150 - 450 K/uL [facility] MCV 94.6 80.0 - 100.0 fL [facility] MCH 31.0 27.0 - 31.0 pg [facility] MCHC 32.7 32.0 - 36.0 g/dL [facility] RDW 12.9 11.5 - 14.5 % [facility] MPV 10.7 8.4 - 12.0 fL [facility] NRBC 0.00 0.00 /100 WBCs [facility] ABSOLUTE NRBC 0.00 0.00 K/uL [facility] DIFF METHOD Auto [facility] NEUTS 54.9 48.0 - 76.0 % [facility] LYMPHS 32.9 18.0 - 41.0 % [facility] MONOS 7.6 4.0 - 11.0 % [facility] EOS 3.3 0.0 - 5.0 % [facility] BASOS 1.0 0.0 - 1.5 % [facility] Granulocytes, immature (%) 0.3 0.0 - 0.9 % [facility] ABSOLUTE NEUTS 4.71 1.92 - 7.60 K/uL [facility] ABSOLUTE LYMPHS 2.82 0.72 - 4.10 K/uL [facility] ABSOLUTE MONOS 0.65 0.16 - 1.10 K/uL [facility] ABSOLUTE EOS 0.28 0.00 - 0.50 K/uL [facility] ABSOLUTE BASOS 0.09 0.00 - 0.15 K/uL [facility] Granulocytes, immature 0.03 0.00 - 0.09 K/uL [facility] Blood 06/14/2024 11:2 0 AM EDT 06/14/2024 11:22 AM EDT Brenda Villa MD LAB BLOOD ORDERA BLES [facility] Organization Address City/State/ZIP Co de Phone Number [address] [address] * BI MAMMOGRAM SCREENING WITH TOMOSYNTHESIS WITH [...] EST) TSH 2.57 0.27 - 4.20 uIU/mL [facility] Blood 03/24/2024 12:0 0 PM EST 03/24/2024 12:03 PM EST Brenda Villa MD LAB BLOOD ORDERA BLES [address] [address] * (ABNORMAL) Lipid panel (01/07/2023 12:26 PM EDT) HDL 61 mg/dL [facility] Comment: ? Interpretation <40 mg/dL: Low HDL cholesterol (major risk factor for CHD) Greater than or equal to 60 mg/dL: High HDL cholesterol ( negative risk factor for CHD) HDL - cholesterol is affected by a number of factors, e.g. smoking, excerise, hormones, sex and age. CHOLESTEROL 179 0 - 240 mg/dL [facility] TRIGLYCERIDES 143 30 - 160 mg/dL [facility] LDL 89 50 - 129 mg/dL [facility] Comment: LDL levels in terms of risk for coronary heart disease: <100 mg/dL: Optimal 100-129 mg/dL: Near or above optimal 130-159 mg/dL: Borderline high 160-189 mg/dL: High >190 mg/dL: Very High CARDIAC RISK RATIO 2.9(L) 3.3 - 4.4 C [facility] Blood 01/07/2023 12:2 6 PM EDT 01/07/2023 12:29 PM EDT Brenda Villa MD LAB BLOOD ORDERA BLES [address] [address] * Hepatitis C antibody, qualitative (01/29/2022 11:43 AM EDT) HCV NON-REACTIV E NON-REACTI VE [facility] Blood 01/29/2022 11:4 3 AM EDT 01/29/2022 11:48 AM EDT Brenda Villa MD LAB BLOOD ORDERA BLES Performing Organization Address City/[facility]/ZIP Co de Phone Number [address] [address] from Last 3 Months or Most Recently Relevant to Health Maintenance Care Teams Manager Of Allied Health Services Relationship Specialty Start Date End Date Brenda Villa MD [address] [place] [address], [address] [place] [address] [email or web address] PCP - General Family Medicine 08/19/23 Enrico Wagner MD [email or web address] Provider Rheumatology 07/02/21 Brenda Villa MD [address] [place] [address], [address] [place] [address] [email or web address] Insurance Assigned Provider 07/11/23 Additional Source Comments The information contained in this document represents components of the legal health record. It is not the complete legal health record.[facility]
--- OUTSIDE RECORDS SUMMARY | 2024-08-08 12:01 | XMS_ITS | Encounter Summary ---
Author Organization [facility] Address [address] [place] [address] Phone Care Team Providers Care Active Directory Engineer Name Role Phone Brenda Villa MD Primary Care Provider + Enrico Wagner MD Unavailable Brenda Villa MD Unavailable [phone] Brenda Villa MD Primary Care Provider + Encounter Details Date Type Department Care Team (Late st Contact Info) Description 12/11/2021 Ancillary Orders Virtual Department [address] [place] [address] Sebastien Luis MD [address] [place] [address] Hip discomfort, right Social History Tobacco Use [...] high school, GED, job training, learning the [place]ib[place]ian language, technical skills, or developing parenting skills)? [...] EST Appointment [facility], Bone Density - [address] [address] Brenda Villa MD [address] [place] [address], [address] [place] [address] [email or web address] documented as of this encounter Results * [...] documented as of this encounter Care Teams Active Directory Engineer Relationship Specialty Start Date End Date Brenda Villa MD PCP - General Family Medicine 06/04/21 08/18/23 Brenda Villa MD [address] [place] [address] 7 [place] [address] PCP - General Family Medicine 08/19/23 Enrico Wagner MD [email or web address] Consulting Provider Rheumatology 07/02/21 Brenda Villa MD [address] [place] [address] 7 [place] [address] [email or web address] Insurance Assigned Provider 07/11/23 documented as of this encounter Additional Source Comments The information contained in this document represents components of the legal health record. It is not the complete legal health record.[facility]
--- OUTSIDE RECORDS SUMMARY | 2024-08-08 12:01 | XMS_ITS | Encounter Summary ---
Author Organization [facility] Address [address] [place] [address] Phone Care Team Providers Care Hand Cutter Name Role Phone Aida Gallardo DO Primary Care Provider [phone] Aida Gallardo DO Primary Care Provider [phone] Brenda Villa MD Primary Care Provider + Enrico Wagner MD Unavailable Brenda Villa MD Unavailable [phone] Brenda Villa MD Primary Care Provider + Encounter Details Date Type Department Care Team (Late st Contact Info) Description 05/22/2020 Procedure Pass [facility], Ct Scan - [address] [address] Social History Tobacco Use Types Packs/Day Years Used Date Smoking Tobacco: Never Smokeless Tobacco: Never Sex and Gender Information Value Date Recorded Sex Assigned at Not on file Gender Identity Not on file Sexual Orientation Not on file documented as of this encounter Plan of Treatment Upcoming Encounters Date Type Department Care Team (Late st Contact Info) Description 04/21/2025 10:15 AM EST Appointment [facility], Bone Density - [address] [address] Brenda Villa MD [address] [place] [address], [address] [place], [place] [id number] documented as of this encounter Visit Diagnoses Not on filedocumented in this encounter Care Teams Hand Cutter Relationship Specialty Start Date End Date Aida Gallardo DO [address] [place] [address] PCP - General Internal Medicine 01/29/17 05/19/21 Aida Gallardo DO [address] [place] [address] PCP - General Internal Medicine 05/20/21 06/03/21 Brenda Villa MD [address] [place] [address] PCP - General Family Medicine 06/04/21 08/18/23 Brenda Villa MD [address] [place] [address], [address] [place] [address] PCP - General Family Medicine 08/19/23 Enrico Wagner MD [address] [place] [address] [email or web address] Consult[employer] Provider Rheumatology 07/02/21 Brenda Villa MD [address] [place] [address], [address] [place] [address] Insurance Assigned Provider 07/11/23 documented as of this encounter Additional Source Comments The information contained in this document represents components of the legal health record. It is not the complete legal health record.[facility]
--- OUTSIDE RECORDS SUMMARY | 2024-08-08 12:01 | XMS_ITS | Encounter Summary ---
Author Organization [facility] Address [address] [facility] [address] [place] [address] Phone Care Team Providers Care Short Filler Bunch Machine Operator Name Role Phone Enrico Wagner MD Unavailable Brenda Villa MD Unavailable [phone] Brenda Villa MD Primary Care Provider + Encounter Details Date Type Department Care Team (Late st Contact Info) Description 10/02/2023 Telephone [employer] [facility] [address] [place], [place] [id number] Radha [address] [place] [address] [place] [address] Social History Tobacco Use Types Packs/Day Years [...] Info) Description 04/21/2025 10:15 AM EST Appointment [facility], Bone [address] [address] Brenda Villa MD [address] [place] [address] 7 [place] [address] documented as of this encounter Visit Diagnoses Not on filedocumented in this encounter Additional Health Concerns Assessment Noted Time PHQ-2 Depression Total Score: 1 01/27/20 22 9:24 AM EDT documented as of this encounter Care Teams Short Filler Bunch Machine Operator Relationship Specialty Start Date End Date Brenda Villa MD [address] [facility], [facility] 7 [place] [address] [email or web address] PCP - General Family Medicine 08/19/23 Enrico Wagner MD [email or web address] Provider Rheumatology 07/02/21 Brenda Villa MD [address] [place] [address] 7 [place] [address] [email or web address] Insurance Assigned Provider 07/11/23 documented as of this encounter Additional Source Comments The information contained in this document represents components of the legal health record. It is not the complete legal health record.[facility]
--- OUTSIDE RECORDS SUMMARY | 2024-08-08 12:01 | XMS_ITS | Encounter Summary ---
Author Organization [facility] Address [address] [place] [address] Phone Care Team Providers Care E Commerce Architect Name Role Phone Brenda Villa MD Primary Care Provider + Enrico Wagner MD Unavailable Brenda Villa MD Unavailable [phone] Brenda Villa MD Primary Care Provider + Encounter Details Date Type Department Care Team (Late st Contact Info) Description 01/03/2022 Procedure Pass [facility] - [address] [place] [address] Social History Tobacco Use Types Packs/Day Years [...] high school, GED, job training, learning the Senegalese language, technical skills, or developing parenting skills)? [...] Info) Description 04/21/2025 10:15 AM EST Appointment [facility], [address] [address] Brenda Villa MD [address] [place] [address], [facility] 7 [place] [address] documented as of this encounter Visit Diagnoses Not on filedocumented in this encounter Additional Health Concerns Assessment Noted Time PHQ-2 Depression Total Score: 1 01/27/20 22 9:24 AM EDT documented as of this encounter Care Teams E Commerce Architect Relationship Specialty Start Date End Date Brenda Villa MD PCP - General Family Medicine 06/04/21 08/18/23 Brenda Villa MD [address] [facility], [address] [place] [address] PCP - General Family Medicine 08/19/23 Enrico Wagner MD [email or web address] Provider Rheumatology 07/02/21 Brenda Villa MD [address] [place] [address] 7 [place] [address] [email or web address] Insurance Assigned Provider 07/11/23 documented as of this encounter Additional Source Comments The information contained in this document represents components of the legal health record. It is not the complete legal health record.[facility]
--- OUTSIDE RECORDS SUMMARY | 2024-08-08 12:01 | XMS_ITS | Encounter Summary ---
Author Organization [facility] Address [address] [place] [address] Phone Care Team Providers Care Agency Trainer Name Role Phone Brenda Villa MD Primary Care Provider + Enrico Wagner MD Unavailable Brenda Villa MD Unavailable [phone] Brenda Villa MD Primary Care Provider + Encounter Details Date Type Department Care Team (Latest Contact Info) Description 01/07/2023 Transcribe Orders Virtual Department [address] [place] [address] Brenda Villa MD [address] [place] [address], [facility] 7 [place], [place] [id number] [email or web address] Breast screening (Primary Dx) Social History Tobacco [...] high school, GED, job training, learning the Albanian language, technical skills, or developing parenting skills)? [...] Info) Description 04/21/2025 10:15 AM EST Appointment [facility], Bone [address] [address] Brenda Villa MD [address] [place] [address], [address] [place] [address] documented as of this encounter Results * [...] documented as of this encounter Care Teams Agency Trainer Relationship Specialty Start Date End Date Brenda Villa MD [email or web address] PCP - General Family Medicine 06/04/21 08/18/23 Brenda Villa MD [address] [facility] 7 [place] [address] [email or web address] PCP - General Family Medicine 08/19/23 Enrico Wagner MD [email or web address] Consulting Provider Rheumatology 07/02/21 Brenda Villa MD [address] [place] [address] 7 [place] [address] [email or web address] Insurance Assigned Provider 07/11/23 documented as of this encounter Additional Source Comments The information contained in this document represents components of the legal health record. It is not the complete legal health record.[facility]
--- OUTSIDE RECORDS SUMMARY | 2024-08-08 12:01 | XMS_ITS | Encounter Summary ---
Author Organization [facility] Address [address] [address] [address] [place] [address] Phone Care Team Providers Care Truck Hop Name Role Phone Aida Gallardo DO Primary Care Provider [phone] Aida Gallardo DO Primary Care Provider [phone] Brenda Villa MD Primary Care Provider + Enrico Wagner MD Unavailable Brenda Villa MD Unavailable Brenda Villa MD Primary Care Provider + Encounter Details Date Type Department Care Team (Late st Contact Info) Description 02/06/2021 Ancillary Orders [facility] [address] [place] [address] [place] [address] Cody Hodges PA [address] [place] [address] [email or web address] Left hip pain Social History Tobacco Use [...] 10:15 AM EST Appointment [facility], Bone Density - [facility] [address] [place] [address] Brenda Villa MD [address] [place] [address], [address] [place], [place] [phone] documented as of this encounter Results * [...] lesions. No soft tissue swelling. Procedure Note Enrioc Garcia MD - 02/06/2021 COMPARISON: 05/10/2020. LEFT [...] thigh documented in this encounter Care Teams Truck Hop Relationship Specialty Start Date End Date Aida Gallardo DO [address] [place] [address] PCP - General Internal Medicine 01/29/17 05/19/21 Aida Gallardo DO [address] [place] [address] PCP - General Internal Medicine 05/20/21 06/03/21 Brenda Villa MD [address] [place] [address] [email or web address] PCP - General Family Medicine 06/04/21 08/18/23 Brenda Villa MD [address] [place] [address] 7 [place] [address] PCP - General Family Medicine 08/19/23 Enrico Wagner MD [address] [place] [address] [email or web address] Consulting Provider Rheumatology 07/02/21 Brenda Villa MD [address] [place] [address], [facility] 7 [place] [address] Insurance Assigned Provider 07/11/23 documented as of this encounter Additional Source Comments The information contained in this document represents components of the legal health record. It is not the complete legal health record.[facility]
--- OUTSIDE RECORDS SUMMARY | 2024-08-08 12:01 | XMS_ITS | Encounter Summary ---
Author Organization [facility] Address [address] [facility] [address] [place] [address] Phone Care Team Providers Care Community Health Nursing Director Name Role Phone Enrico Wagner MD Unavailable Brenda Villa MD Unavailable [phone] Brenda Villa MD Primary Care Provider + Encounter Details Date Type Department Care Team (Late st Contact Info) Description 10/16/2023 Procedure Pass Non-Invasive Cardiology [address] [place] [address] Social History Tobacco Use Types Packs/Day Years [...] 10:15 AM EST Appointment [facility], Bone [address] [address] Brenda Villa MD [address] [place] [address] [email or web address] documented as of this encounter Visit Diagnoses Not on filedocumented in this encounter Additional Health Concerns Assessment Noted Time PHQ-2 Depression Total Score: 1 01/27/20 22 9:24 AM EDT documented as of this encounter Care Teams Community Health Nursing Director Relationship Specialty Start Date End Date Brenda Villa MD [address] [place] [address], [facility] 7 [place] [address] [email or web address] PCP - General Family Medicine 08/19/23 Enrico Wagner MD [email or web address] Provider Rheumatology 07/02/21 Brenda Villa MD [address] [place] [address] 7 [place] [address] [email or web address] Insurance Assigned Provider 07/11/23 documented as of this encounter Additional Source Comments The information contained in this document represents components of the legal health record. It is not the complete legal health record.[facility]
== END 2024-08-08 10:37 | disposition home or self-care (01) ==
LOC: HO.CT 10:36
PROVIDERS: PCP Family Medicine; Visit Provider Physician Assistant
DX: M51.369 Other intervertebral disc degeneration, lumbar region without mention of lumbar back pain or lower extremity pain (principal)
CPT/HCPCS: 72131

== ENCOUNTER → 2024-08-08 10:38 | Outpatient (BNV) | payer MEDICARE, OTHER, SELFPAY | PROVIDERS: PCP Family Medicine; Visit Provider Radiology Vascular & Interventional Radiology | DX: M51.369 Other intervertebral disc degeneration, lumbar region without mention of lumbar back pain or lower extremity pain (principal) | CPT/HCPCS: 72131 ==

== ENCOUNTER 2024-08-22 11:01 | Outpatient (AMB) | payer MEDICARE, OTHER, SELFPAY ==
--- OUTSIDE RECORDS SUMMARY | 2024-08-22 11:48 | XMS_ITS | Encounter Summary ---
Author Organization [facility] Address [address] [place] [address] Phone Care Team Providers Care Insert Molding Operator Name Role Phone Aida Gallardo DO Primary Care Provider [phone] Aida Gallardo DO Primary Care Provider [phone] Brenda Villa MD Primary Care Provider + Enrico Wagner MD Unavailable Brenda Villa MD Unavailable Brenda Villa MD Primary Care Provider + Reason for Referral * MRI/CAT Scan - Closed Specialty Diagnoses / Procedures Referred By Contjessica t Referred To Contact Radiology Diagnoses Radiculopathy, lumbar region Procedures MRI Lumbar Spine Abner Pabon DO Phone: tel: fax: [email or web address] Referral ID Status Reason Start Date Expiration Date Visits Re quested Visits Authorized [id number] Closed 04/04/2020 04/04/2021 1 1 Encounter Details Date Type Department Care Team (Latest Contact Info) Description 04/04/2020 Transcribe Orders Virtual Department [address] [place] [address] Abner Pabon DO [address] [place] [phone] [email or web address] Radiculopathy, lumbar region (Primary Dx) Social History Tobacco Use Types Packs/Day Years Used Date Smoking Tobacco: Never Smokeless Tobacco: Never Comments Unknown Sex and Gender Information Value Date Recorded Sex Assigned at Not on file Legal Sex Female 1:25 AM EST Gender Identity Not on file Sexual Orientation Not on file documented as of this encounter Plan of Treatment Upcoming Encounters Date Type Department Care Team (Late st Contact Info) Description 04/21/2025 10:15 AM EST Appointment [facility], Bone Density [address] [address] Brenda Villa MD [address] [place] [address], [facility] [address] [place] [address] [email or web address] documented as of this encounter Results * [...] with moderate to severe bilateralneural foraminal narrowing. us Abner Pabon DO IMG XR SPINE Final Result * MRI LUMBAR SPINE (NEURO) WITHOUT CONTRAST [...] left neural foraminalnarrowing. Additional findings, as described. us Abner Pabon DO IMG MR XSPECIALTY Final Resu lt documented in this encounter Visit Diagnoses Diagnosis Radiculopathy, lumbar region- Primary Thoracic or lumbosacral neuritis or radiculitis, unspecified Radiculopathy, lumbar region Thoracic or lumbosacral neuritis or radiculitis, unspecified Radiculopathy, lumbar region Thoracic or lumbosacral neuritis or radiculitis, unspecified documented in this encounter Care Teams Insert Molding Operator Relationship Specialty Start Date End Date Aida Gallardo DO [address] [place] [address] PCP - General Internal Medicine 01/29/17 05/19/21 Aida Gallardo DO [address] [place] [address] PCP - General Internal Medicine 05/20/21 06/03/21 Brenda Villa MD [address] [place] [address] PCP - General Family Medicine 06/04/21 08/18/23 Brenda Villa MD [address] [place] [address], [address] [place] [address] [email or web address] PCP - General Family Medicine 08/19/23 Enrico Wagner MD [address] [place] [address] [email or web address] Provider Rheumatology 07/02/21 Brenda Villa MD [address] [place] [address] [address] [place] [address] [email or web address] Insurance Assigned Provider 07/11/23 documented as of this encounter Additional Source Comments The information contained in this document represents components of the legal health record. It is not the complete legal health record.[facility]
--- OUTSIDE RECORDS SUMMARY | 2024-08-22 11:48 | XMS_ITS | Referral Summary ---
Author Organization [facility] Address [address] [place] [address] Care Team Providers Care Violin Maker Hand Name Role Phone Aida Gallardo Primary Care Provider [phone] Allergies Active Allergy Reactions Criticality Noted Date [...] of Treatment Not on file Insurance [facility] Care Teams Violin Maker Hand Relationship Specialty Start Date End Date Aida Gallardo [address] [place] [phone] PCP - General Internal Medicine 02/09/19
--- OUTSIDE RECORDS SUMMARY | 2024-08-22 11:49 | XMS_ITS | Encounter Summary ---
Author Organization [facility] Address [address] [place] [address] Phone Care Team Providers Care Tire Buster Name Role Phone Aida Gallardo DO Primary Care Provider [phone] Aida Gallardo DO Primary Care Provider Brenda Villa MD Primary Care Provider + Enrico Wagner MD Unavailable Brenda Villa MD Unavailable Brenda Villa MD Primary Care Provider + Encounter Details Date Type Department Care Team (Late st Contact Info) Description 05/08/2020 Ancillary Orders [facility] Department [address] [place] [address] Abner Pabon, DO [address] [place] [phone] [email or web address] Pain in right hip Social History Tobacco [...] Info) Description 04/21/2025 10:15 AM EST Appointment [address] [place] [address] Brenda Villa MD [address] [place] [address], [address] [place] [address] [email or web address] documented as of this encounter Results * [...] disease. Abner Pabon DO IMG XR PELVIS Final Result documented in this encounter Visit Diagnoses Diagnosis Pain in right hip Pain in right hip documented in this encounter Care Teams Tire Buster Relationship Specialty Start Date End Date Aida Gallardo DO [address] [place] [address] PCP - General Internal Medicine 01/29/17 05/19/21 Aida Gallardo DO [address] [place] [address] PCP - General Internal Medicine 05/20/21 06/03/21 Brenda Villa MD [address] [place] [phone] [email or web address] PCP - General Family Medicine 06/04/21 08/18/23 Brenda Villa MD [address] [place] [address] [address] [place] [address] [email or web address] PCP - General Family Medicine 08/19/23 Enrico Wagner MD [address] [place] [address] [email or web address] Consulting Provider Rheumatology 07/02/21 Brenda Villa MD [address] [place] [address] 7 [place] [address] [email or web address] Insurance Assigned Provider 07/11/23 documented as of this encounter Additional Source Comments The information contained in this document represents components of the legal health record. It is not the complete legal health record.[facility]
--- OUTSIDE RECORDS SUMMARY | 2024-08-22 11:49 | XMS_ITS | Encounter Summary ---
Author Organization [facility] Address [address] [place] [address] Phone Care Team Providers Care Payroll Processor Name Role Phone Enrico Wagner MD Unavailable Brenda Villa MD Unavailable [phone] Brenda Villa MD Primary Care Provider + Reason for Visit * Reason Comments Medication Refill Encounter Details Date Type Department Care Team (Late st Contact Info) Description 08/19/2024 Refill [facility] [address] [place], [place] [phone] Brenda Villa MD [address] [facility] [address] [place], [place] [phone] [email or web address] Medication Refill Social History Tobacco Use Types [...] with a working camera? Not on file Comments No Sex and Gender Information Value Date Recorded Sex Assigned at Not on file Legal Sex Female 1:25 AM EST Gender Identity Not on file Sexual Orientation Not on file documented as of this encounter Progress Notes * Crystal Costa - 08/20/2024 12:49 PM EDT Rx Care Gap Status - Instructions for Clinical Staff (prescriber discretion applies): > No future appt: Please schedule if appropriate. Visit Info Last visit: 06/10/2024 Brenda Villa MD - Family Medicine [facility] > Requested f/u: Return in about 6 months (around 12/11/2024) for follow up. Upcoming visit: None ACTIONS TAKEN BY Crystal Costa - Refill protocol passed: no action needed. Antidepressant / Anxiolytics (Non-Benzodiazepine) Rx Protocol - amitriptyline HCl Criteria met; renew for up to 12 months. Visit in the past 14 months: Yes Anti-emetic / GI Anti-spasmodic Rx Protocol - dicyclomine HCl Criteria met; renew for up to 12 months. Visit in the past 14 months: Yes documented in this encounter Plan of Treatment Upcoming Encounters Date Type Department Care Team (Late st Contact Info) Description 04/21/2025 10:15 AM EST Appointment [facility], Bone Density - [address] [address] Brenda Villa MD [address] [facility] [address] [place] [address] [email or web address] documented as of this encounter Visit Diagnoses Diagnosis Irritable bowel syndrome with both constipation and diarrhea documented in this encounter Additional Health Concerns Assessment Noted Time PHQ-2 Depression Total Score: 1 01/27/20 22 9:24 AM EDT documented as of this encounter Care Teams Payroll Processor Relationship Specialty Start Date End Date Brenda Villa MD [address] [facility] 7 [place] [address] [email or web address] PCP - General Family Medicine 08/19/23 Enrico Wagner MD [email or web address] Consulting Provider Rheumatology 07/02/21 Brenda Villa MD [address] [place] [address] [address] [place] [address] [email or web address] Insurance Assigned Provider 07/11/23 documented as of this encounter Additional Source Comments The information contained in this document represents components of the legal health record. It is not the complete legal health record.[facility]
--- OUTSIDE RECORDS SUMMARY | 2024-08-22 11:49 | XMS_ITS | Clinical Summary ---
Author Organization [facility] Address [address] [place] [address] Care Team Providers Care Control Board Operator Name Role Phone Aida Gallardo Primary Care Provider [phone] Allergies Active Allergy Reactions Criticality Noted Date [...] age to complete this topic Insurance MEDICARE [facility] [place] [address] [place] [address] MEDICARE Care Teams Control Board Operator Relationship Specialty Start Date End Date Aida Gallardo [address] [place] [phone] PCP - General Internal Medicine 02/09/19
--- OUTSIDE RECORDS SUMMARY | 2024-08-22 11:49 | XMS_ITS | Encounter Summary ---
Author Organization [facility] Address [address] [place] [address] Phone Care Team Providers Care Pneumatic Tube Fitter Name Role Phone Brenda Villa MD Primary Care Provider + Enrico Wagner MD Unavailable Brenda Villa MD Unavailable [phone] Brenda Villa MD Primary Care Provider + Encounter Details Date Type Department Care Team (Late st Contact Info) Description 08/22/2021 Procedure Pass [address] [place] [address] Social History Tobacco Use Types Packs/Day Years [...] high school, GED, job training, learning the Malaysian language, technical skills, or developing parenting skills)? [...] work? I choose not to answer 07/01/2021 Comments Unknown Sex and Gender Information Value Date Recorded Sex Assigned at Not on file Legal Sex Female 1:25 AM EST Gender Identity Not on file Sexual Orientation Not on file documented as of this encounter Plan of Treatment Upcoming Encounters Date Type Department Care Team (Late st Contact Info) Description 04/21/2025 10:15 AM EST Appointment [facility], [address] [address] Brenda Villa MD [address] [facility], [facility] [address] [place] [address] documented as of this encounter Visit Diagnoses Not on filedocumented in this encounter Additional Health Concerns Assessment Noted Time PHQ-2 Depression Total Score: 1 07/02/19 22 8:13 AM EDT documented as of this encounter Care Teams Pneumatic Tube Fitter Relationship Specialty Start Date End Date Brenda Villa MD PCP - General Family Medicine 06/04/21 08/18/23 Brenda Villa MD [address] [facility], [address] [place] [address] PCP - General Family Medicine 08/19/23 Enrico Wagner MD [email or web address] Provider Rheumatology 07/02/21 Brenda Villa MD [address] [place] [address] 7 [place] [address] [email or web address] Insurance Assigned Provider 07/11/23 documented as of this encounter Additional Source Comments The information contained in this document represents components of the legal health record. It is not the complete legal health record.[facility]
--- OUTSIDE RECORDS SUMMARY | 2024-08-22 11:49 | XMS_ITS | Encounter Summary ---
Author Organization [facility] Address [address] [place] [address] Phone Care Team Providers Care Rn Training Name Role Phone Brenda Villa MD Primary Care Provider + Enrico Wagner MD Unavailable Brenda Villa MD Unavailable [phone] Brenda Villa MD Primary Care Provider + Reason for Referral * MRI/CAT Scan - Closed Specialty Diagnoses / Procedures Referred By Contac t Referred To Contact Radiology Diagnoses Low back pain, unspecified back pain laterality, unspecified chronicity, unspecified whether sciatica present Procedures MRI Lumbar Spine Kendall Ybarra MD Phone: tel: fax: Referral ID Status Reason Start Date Expiration Date Visits Re quested Visits Authorized [id number] Closed 08/22/2021 08/22/2022 1 1 Encounter Details Date Type Department Care Team (Latest Contact Info) Description 08/22/2021 Transcribe Orders Virtual Department [address] [place] [address] Kendall Ybarra MD [address] [place] [address] Low back pain, unspecified back pain laterality, [...] high school, GED, job training, learning the Cuban language, technical skills, or developing parenting skills)? [...] Info) Description 04/21/2025 10:15 AM EST Appointment [facility], Bone Density - [address] [address] Brenda Villa MD [address] [place] [address], [address] [place] [address] [email or web address] documented as of this encounter Results * [...] Multilevel degenerative changes are nonspecific but progressed [id number]. IMPRESSION: 1.Advanced multilevel degenerative changes, more prominent at L4-L5 andL5-S1, not significantly progressed from 2020. 2.No acute compression fractures. Kendall Ybarra MD IMG MR XSPECIALTY Final R esult documented in this encounter Visit Diagnoses Diagnosis Low back pain, unspecified back pain laterality, unspecified chronicity, unspecified whether sciatica present- Primary Low back pain, unspecified back pain laterality, unspecified chronicity, unspecified whether sciatica present documented in this encounter Additional Health Concerns Assessment Noted Time PHQ-2 Depression Total Score: 1 07/02/19 8:13 AM EDT documented as of this encounter Care Teams Rn Training Relationship Specialty Start Date End Date Brenda Villa MD PCP - General Family Medicine 06/04/21 08/18/23 Brenda Villa MD [address] [place] [address] 7 [place] [address] PCP - General Family Medicine 08/19/23 Enrico Wagner MD [email or web address] Consult[employer] Provider Rheumatology 07/02/21 Brenda Villa MD [address] [place] [address] 7 [place] [address] [email or web address] Insurance Assigned Provider 07/11/23 documented as of this encounter Additional Source Comments The information contained in this document represents components of the legal health record. It is not the complete legal health record.[facility]
--- OUTSIDE RECORDS SUMMARY | 2024-08-22 11:49 | XMS_ITS | Clinical Summary ---
Author Organization [facility] Address [address] [place] [address] Phone Care Team Providers Care Hr Recruiter Name Role Phone Enrico Wagner MD Unavailable Brenda Villa MD Unavailable [phone] Brenda Villa MD Primary Care Provider + Allergies Active Allergy Reactions Criticality Noted Date Comments Codeine 06/01/2018 Nitrofurantoin Monohyd/M-Cryst Fever 08/08 Medications b complex vitamins tablet Take 1 tablet by mouth daily. Active omega 8-ovk-tag-fish oil 1,000 mg (120 mg-180 mg) Cap [...] as needed. Active Medication-Free Text Cologen Powder Activ e ciclopirox (PENLAC) 8 % solutionIndicatio ns:Onychomycosis Apply topically nightly at bedtime. Apply over nail and surrounding skin. Apply daily over previous coat. After seven (7) days, may remove with alcohol and continue cycle. 6.6 mL 5 024 Active celecoxib (CELEBREX) 200 MG capsuleIndication s:Polyarticular osteoarthritis TAKE 1 CAPSULE BY MOUTH EVERY DAY 90 capsule 3 025 Active levothyroxine (SYNTHROID, LEVOTHROID) 50 MCG tabletIndications :Acquired hypothyroidism TAKE 1 TABLET BY MOUTH EVERY DAY 90 tablet 3 025 Active clobetasol (TEMOVATE) 0.05 % ointmentIndicatio ns:Onychoschizia Apply topically 2 (two) times a day as needed (hand rash). 60 g 1 025 Active dicyclomine (BENTYL) 10 MG capsuleIndication s:Irritable bowel syndrome with both constipation and diarrhea TAKE 1 CAPSULE BY MOUTH EVERY DAY 90 capsule 3 025 Active amitriptyline (ELAVIL) 10 MG tabletIndications :Irritable bowel syndrome with both constipation and diarrhea TAKE 1 TABLET BY MOUTH EVERYDAY AT BEDTIME 90 tablet 3 025 Active amitriptyline (ELAVIL) 10 MG tabletIndications :Irritable bowel syndrome with both constipation and diarrhea take 1 tablet by mouth everyday at bedtime 90 tablet 3 024 2024 Discontinued dicyclomine (BENTYL) 10 MG capsuleIndication s:Irritable bowel syndrome with both constipation and diarrhea take 1 capsule by mouth every day 90 capsule 3 024 2024 Discontinued Active Problems Problem Noted Date Diagnosed Date [...] spinal stenosis 06/11/2018 Overview (08/23/2022): Seen by [facility] flight control specialist 2021 and declined surgery at that [...] 50% of this 28-minute visit was spent obif-bg-[id number] conversation with the patient going over her [...] growth which was discussed in detail. 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 and warmth to [...] Encounters Date Type Department Care Team Description 08/19/2024 Refill [facility] [address] [place] [address] Brenda Villa MD Medication Refill 08/11/2024 Telephone [facility] [address] [place] [address] Brenda Villa MD 08/10/2024 Orders Only [address] [address] Kendall Gomez PA 07/13/2024 Orders Only [address] [address] ProviderFilemon MD 06/14/2024 11:19 AM EDT - 06/14/2024 11:59 PM EDT Hospital Encounter [facility] [address] [place] [address] [place] [address] Brenda Villa MD Discharge Disposition: Home or Self Care 06/10/2024 2:15 PM EST Office Visit [address] [address] Brenda Villa MD Lumbar radiculopathy, chronic (Primary Dx); Onychoschizia; Osteopenia, unspecified location; Encounter for monitoring chronic NSAID therapy 05/30/2024 1:38 PM EST - 05/30/2024 11:59 PM EST Hospital Encounter [address] [place] [address] Brenda Villa MD Discharge Disposition: Home or Self Care 12/30/2023 Procedure Pass [address] [place] [address] from Last 3 Months Immunizations Immunization Administration Dates Next Due COVID-19 (Pre-01/26) Moderna [...] AM EST Appointment [facility], Bone Density - [address] [address] Brenda Villa MD [address] [place] [address], [address] [place] [address] Health Maintenance Due Date Last Done Comments OSTEOPOROSIS SCREENING INITIAL (ONE-TIME) 2009 RSV VACCINE (1 - 1-dose 75+ series) 11/06/2019 DEPRESSION SCREENING 01/26/2023 01/26/2022 COVID-19 VACCINE ( season) 2024 12/25/2023, 01/13/2023, 01/07/2022, Additional history exists TSH LEVEL 03/24/2025 03/24/2024, 100 07/2022, 12/12/2021, Additional history exists LIPID PANEL 01/08/2028 01/07/2023, 100 07/2022, 07/05/2021 Adult Td,Tdap Booster 06/01/2029 06/01/2019 , 04/10/2009, 04/06/1998 HEPATITIS C SCREENING Completed 01/29/2022, 022 PNEUMOCOCCAL VACCINES (50+ years) Completed 01/29/2022 ZOSTER VACCINES Completed 07/03/2022, 02/19/2022 SMOKING STATUS SCREENING (Once After 26 Yrs) Completed 06/10/2024 HEPATITIS A VACCINES Aged Out No long er eligible based on patient's age to complete this topic HIB VACCINES Aged Out No longer eligi ble based on patient's age to complete this topic MENINGOCOCCAL VACCINES (ACWY) Aged Out No longer eligible based on patient's age to complete this topic MENINGOCOCCAL VACCINES (B) Aged Out N o longer eligible based on patient's age to complete this topic Medical Devices Not on file Procedures Procedure Name Priority Date/Time Associated Diagnosis Comments OUTSIDE CT SPINE REPORT ONLY Routine 08/10/2024 1:09 PM EDT OUTSIDE XR IMAGING REPORT ONLY Routine 06/20/2024 [...] Relevant to Health Maintenance Results * Outside CT Spine Report Only (08/10/2024 1:09 PM EDT) us Kendall CHOI IMJose Antonio CT SPINE Final Resul t * Outside XR Imaging Report Only (06/20/2024 8:23 AM EDT) us Historical Provider MD DEL CASTILLO XR CHEST Final Res ult * (ABNORMAL) Comprehensive metabolic panel (06/14/2024 11:20 AM EDT) SODIUM 139 133 - 146 mmol/L [facility] POTASSIUM 5.0 3.3 - 5.1 mmol/L [facility] CHLORIDE 104 96 - 108 mmol/L [facility] CO2 30 21 - 35 mmol/L [facility] BUN 29(H) 6 - 19 mg/dL [facility] CREATININE 0.70 0.5 - 1.5 mg/dL [facility] GLUCOSE 95 70 - 99 mg/dL [facility] ALBUMIN 4.3 3.9 - 4.8 g/dL [facility] TOTAL PROTEIN 7.0 6.5 - 8.0 g/dL [facility] CALCIUM 9.4 8.4 - 10.3 mg/dL [facility] ALKALINE PHOSPHATASE 74 39 - 117 U/L [facility] TOTAL BILIRUBIN 0.4 0.0 - 1.2 mg/dL [facility] AST 31 0 - 37 U/L [facility] ALT 21 0 - 40 U/L [facility] GLOBULIN 2.7 1 - 4.8 g/dL [facility] EGFR 88 >59 mL/min/1.7 3m2 [facility] Comment:Estimated glomerular filtration rate calculated using the CKD-EPI refit equation. ANION GAP 10 10 - 20 mmol/L [facility] Blood 06/14/2024 11:2 0 AM EDT 06/14/2024 11:22 AM EDT us Brenda Villa MD LAB BLOOD ORDERABLES Fin al Result [facility] [address] [place] [address] * CBC and differential (06/14/2024 11:20 AM EDT) WBC 8.58 4.00 - 11.00 K/uL [facility] RBC 4.62 4.00 - 5.20 M/uL [facility] HGB 14.3 12.0 - 16.0 g/dL [facility] HCT 43.7 36.0 - 46.0 % [facility] PLT 224 150 - 450 K/uL [facility] MCV 94.6 80.0 - 100.0 fL [facility] MCH 31.0 27.0 - 31.0 pg [facility] MCHC 32.7 32.0 - 36.0 g/dL [facility] RDW 12.9 11.5 - 14.5 % [facility] MPV 10.7 8.4 - 12.0 fL [facility] NRBC 0.00 0.00 /100 WBCs [facility] ABSOLUTE NRBC 0.00 0.00 K/uL [facility] DIFF METHOD Auto [facility] NEUTS 54.9 48.0 - 76.0 % [facility] LYMPHS 32.9 18.0 - 41.0 % [facility] MONOS 7.6 4.0 - 11.0 % [facility] EOS 3.3 0.0 - 5.0 % [facility] BASOS 1.0 0.0 - 1.5 % [facility] Granulocytes, immature (%) 0.3 0.0 - 0.9 % [facility] ABSOLUTE NEUTS 4.71 1.92 - 7.60 K/uL [facility] ABSOLUTE LYMPHS 2.82 0.72 - 4.10 K/uL [facility] ABSOLUTE MONOS 0.65 0.16 - 1.10 K/uL [facility] ABSOLUTE EOS 0.28 0.00 - 0.50 K/uL [facility] ABSOLUTE BASOS 0.09 0.00 - 0.15 K/uL [facility] Granulocytes, immature 0.03 0.00 - 0.09 K/uL [facility] Blood 06/14/2024 11:2 0 AM EDT 06/14/2024 11:22 AM EDT us Brenda Villa MD LAB BLOOD ORDERABLES Fin al Result [address] [address] * BI MAMMOGRAM SCREENING WITH TOMOSYNTHESIS WITH [...] be notified of the results and recommendations. us Brenda Villa MD IMG MG EXAMS Final Re sult * TSH with reflex (03/24/2024 12:00 PM EST) TSH 2.57 0.27 - 4.20 uIU/mL [facility] Blood 03/24/2024 12:0 0 PM EST 03/24/2024 12:03 PM EST us Brenda Villa MD LAB BLOOD ORDERABLES Fin al Result Performing Organization Address City/[facility] Co de Phone Number [address] [address] * (ABNORMAL) Lipid panel (01/07/2023 12:26 PM EDT) HDL 61 mg/dL [facility] Comment: ? Interpretation <40 mg/dL: Low HDL cholesterol (major risk factor for CHD) Greater than or equal to 60 mg/dL: High HDL cholesterol ( negative risk factor for CHD) HDL - cholesterol is affected by a number of factors, e.g. smoking, excerise, hormones, sex and age. CHOLESTEROL 179 0 - 240 mg/dL [facility] TRIGLYCERIDES 143 30 - 160 mg/dL [facility] LDL 89 50 - 129 mg/dL [facility] Comment: LDL levels in terms of risk for coronary heart disease: <100 mg/dL: Optimal 100-129 mg/dL: Near or above optimal 130-159 mg/dL: Borderline high 160-189 mg/dL: High >190 mg/dL: Very High CARDIAC RISK RATIO 2.9(L) 3.3 - 4.4 C [facility] Blood 01/07/2023 12:2 6 PM EDT 01/07/2023 12:29 PM EDT us Brenda Villa MD LAB BLOOD ORDERABLES Fin al Result Performing Organization Address City/[facility]/ZIP Co de Phone Number [address] [address] * Hepatitis C antibody, qualitative (01/29/2022 11:43 AM EDT) HCV NON-REACTIV E NON-REACTI VE [facility] Blood 01/29/2022 11:4 3 AM EDT 01/29/2022 11:48 AM EDT us Brenda Villa MD LAB BLOOD ORDERABLES Fin al Result [facility] [address] [place] [address] from Last 3 Months or Most Recently Relevant to Health Maintenance Insurance MEDICARE PART A & B [facility] MEDICARE SUPPLEMENT MEDICARE PART A & B [employer] MEDICARE SUPPLEMENT MEDICARE PART A & B [employer] MEDICARE SUPPLEMENT MEDICARE PART A & B [facility] MEDICARE SUPPLEMENT MEDICARE PART A & B [facility] MEDICARE SUPPLEMENT MEDICARE PART A & B [facility] MEDICARE SUPPLEMENT MEDICARE PART A & [facility] [employer] MEDIC[facility] SUPPLEMENT MEDICARE PART A & B [facility] [employer] [id number] MEDICARE PART A & B [facility] [employer] [id number] Care Teams Hr Recruiter Relationship Specialty Start Date End Date Brenda Villa MD [address] [place] [address], [address] [place] [address] [email or web address] PCP - General Family Medicine 08/19/23 Enrico Wagner MD [email or web address] Provider Rheumatology 07/02/21 Brenda Villa MD [address] [place] [address], [address] [place] [address] [email or web address] Insurance Assigned Provider 07/11/23 Additional Source Comments The information contained in this document represents components of the legal health record. It is not the complete legal health record.[facility]
--- OUTSIDE RECORDS SUMMARY | 2024-08-22 11:49 | XMS_ITS | Encounter Summary ---
Author Organization [facility] Address [address] [place] [address] Phone Care Team Providers Care Bulker Name Role Phone Enrico Wagner MD Unavailable Brenda Villa MD Unavailable [phone] Brenda Villa MD Primary Care Provider + Reason for Referral * MRI/CAT Scan - Closed Specialty Diagnoses / Procedures Referred By Quentin khan Referred To Contact Radiology Procedures Outside CT Spine Report Only Kendall Gomez PA [address] [place] [address] Phone: tel: fax: Referral ID Status Reason Start Date Expiration Date Visits Re quested Visits Authorized [id number] Closed 08/10/2024 1 1 Encounter Details Date Type Department Care Team (Late st Contact Info) Description 08/10/2024 Orders Only [facility] Medicine [address] [place] [address] Kendall Gomez PA [address] [place] [address] Social History Tobacco Use Types Packs/Day Years [...] Info) Description 04/21/2025 10:15 AM EST Appointment [facility], Bone Density - [address] [address] Brenda Villa MD [address] [place] [address], [address] [place], [place] [phone] documented as of this encounter Procedures Procedure Name Priority Date/Time Associated Diagnosis Comments OUTSIDE CT SPINE REPORT ONLY Routine 08/10/2024 1:09 PM EDT documented in this encounter Results * Outside CT Spine Report Only (08/10/2024 1:09 PM EDT) Kendall CHOI IMG CT SPINE Final Resul t documented in this encounter Visit Diagnoses Not on filedocumented in this encounter Additional Health Concerns Assessment Noted Time PHQ-2 Depression Total Score: 1 01/27/20 22 9:24 AM EDT documented as of this encounter Care Teams Bulker Relationship Specialty Start Date End Date Brenda Villa MD [address] [place] [address] [address] [place] [address] [email or web address] PCP - General Family Medicine 08/19/23 Enrico Wagner MD [email or web address] Provider Rheumatology 07/02/21 Brenda Villa MD [address] [place] [address] [address] [place] [address] [email or web address] Insurance Assigned Provider 07/11/23 documented as of this encounter Additional Source Comments The information contained in this document represents components of the legal health record. It is not the complete legal health record.[facility]
--- OUTSIDE RECORDS SUMMARY | 2024-08-22 11:49 | XMS_ITS | Encounter Summary ---
Author Organization [facility] Address [address] [place] [address] Phone Care Team Providers Care Numerical Tool Programmer Name Role Phone Enrico Wagner MD Unavailable Brenda Villa MD Unavailable Brenda Villa MD Primary Care Provider + Encounter Details Date Type Department Care Team (Late st Contact Info) Description 12/30/2023 Procedure Pass [facility] - [address] [place] [address] Social History Tobacco Use Types Packs/Day Years [...] Info) Description 04/21/2025 10:15 AM EST Appointment [address] [address] Brenda Villa MD [address] [place] [phone] [email or web address] documented as of this encounter Visit Diagnoses Not on filedocumented in this encounter Additional Health Concerns Assessment Noted Time PHQ-2 Depression Total Score: 1 01/27/20 22 9:24 AM EDT documented as of this encounter Care Teams Numerical Tool Programmer Relationship Specialty Start Date End Date Brenda Villa MD [address] [place] [address] PCP - General Family Medicine 08/19/23 Enrico Wagner MD [email or web address] Consulting Provider Rheumatology 07/02/21 Brenda Villa MD [address] [place] [address], [address] [place] [address] [email or web address] Insurance Assigned Provider 07/11/23 documented as of this encounter Additional Source Comments The information contained in this document represents components of the legal health record. It is not the complete legal health record.[facility]
--- OUTSIDE RECORDS SUMMARY | 2024-08-22 11:49 | XMS_ITS | Encounter Summary ---
Author Organization [facility] Address [address] [place] [address] Phone Care Team Providers Care Gas Combustion Engineer Name Role Phone Rossi Gallardo DO Primary Care Provider [phone] Rossi Gallardo DO Primary Care Provider [phone] Brenda Villa MD Primary Care Provider + Enrico Wagner MD Unavailable Brenda Villa MD Unavailable Brenda Villa MD Primary Care Provider + Encounter Details Date Type Department Care Team (Late st Contact Info) Description 02/06/2021 Ancillary Orders [facility] [address] [place] [address] [place] [address] Cody Hodges PA [address] [place] [phone] [email or web address] Left hip pain Social History Tobacco Use Types Packs/Day Years Used Date Smoking Tobacco: Never Smokeless Tobacco: Never Alcohol Use Standard Drinks/Week Comments Not Currently 0 (1 standard drink = 0.6 oz pur e alcohol) Comments Unknown Sex and Gender Information Value Date Recorded Sex Assigned at Not on file Legal Sex Female 1:25 AM EST Gender Identity Not on file Sexual Orientation Not on file documented as of this encounter Plan of Treatment Upcoming Encounters Date Type Department Care Team (Late st Contact Info) Description 04/21/2025 10:15 AM EST Appointment [facility], Bone Density - [address] [address] Brenda Villa MD [address] [place] [address], [address] [place] [address] [email or web address] documented as of this encounter Results * [...] lower lumbar spine disc disease. Cody CHOI IMG XR PELVIS Final Result documented in this encounter Visit Diagnoses Diagnosis Left hip pain Pain in joint, pelvic region and thigh Left hip pain Pain in joint, pelvic region and thigh documented in this encounter Care Teams Gas Combustion Engineer Relationship Specialty Start Date End Date Rossi Gallardo DO [address] [place] [address] PCP - General Internal Medicine 01/29/17 05/19/21 Rossi Gallardo DO [address] [place] [address] PCP - General Internal Medicine 05/20/21 06/03/21 Brenda Villa MD [address] [place] [address] PCP - General Family Medicine 06/04/21 08/18/23 Brenda Villa MD [address] [place] [address] [address] [place] [address] PCP - General Family Medicine 08/19/23 Enrico Wagner MD [address] [place] [phone] [email or web address] Consulting Provider Rheumatology 07/02/21 Brenda Villa MD [address] [place] [address] 7 [place] [address] Insurance Assigned Provider 07/11/23 documented as of this encounter Additional Source Comments The information contained in this document represents components of the legal health record. It is not the complete legal health record.[facility]
--- OUTSIDE RECORDS SUMMARY | 2024-08-22 11:49 | XMS_ITS | Encounter Summary ---
Author Organization [facility] Address [address] [facility] [address] [place] [address] Phone Care Team Providers Care Street Light Repairer Helper Name Role Phone Aida Gallardo DO Primary Care Provider Aida Gallardo DO Primary Care Provider [phone] Brenda Villa MD Primary Care Provider + Enrico Wagner MD Unavailable Brenda Villa MD Unavailable [phone] Brenda Villa MD Primary Care Provider + Encounter Details Date Type Department Care Team (Late st Contact Info) Description 04/04/2020 Procedure Pass [address] [place] [address] Social History Tobacco Use Types Packs/Day Years [...] Info) Description 04/21/2025 10:15 AM EST Appointment [facility], [facility] [address] [place] [address] Brenda Villa MD [address] [place] [address], [facility] [address] [place] [address] documented as of this encounter Visit Diagnoses Not on filedocumented in this encounter Care Teams Street Light Repairer Helper Relationship Specialty Start Date End Date Aida Gallardo DO [address] [place] [address] PCP - General Internal Medicine 01/29/17 05/19/21 Aida Gallardo DO [address] [place] [address] PCP - General Internal Medicine 05/20/21 06/03/21 Brenda Villa MD [address] [place] [address] PCP - General Family Medicine 06/04/21 08/18/23 Brenda Villa MD [address] [place] [address] 7 [place] [address] PCP - General Family Medicine 08/19/23 Enrico Wagner MD [address] [place] [address] [email or web address] Provider Rheumatology 07/02/21 Brenda Villa MD [address] [place] [address], [address] [place] [address] [email or web address] Insurance Assigned Provider 07/11/23 documented as of this encounter Additional Source Comments The information contained in this document represents components of the legal health record. It is not the complete legal health record.[facility]
--- OUTSIDE RECORDS SUMMARY | 2024-08-22 11:49 | XMS_ITS | Encounter Summary ---
Author Organization [facility] Address [address] [place] [address] Phone Care Team Providers Care Hearse Driver Name Role Phone Aida Gallardo DO Primary Care Provider Aida Gallardo DO Primary Care Provider Brenda Villa MD Primary Care Provider + Enrico Wagner MD Unavailable Brenda Villa MD Unavailable Brenda Villa MD Primary Care Provider + Encounter Details Date Type Department Care Team (Late st Contact Info) Description 05/22/2020 Procedure Pass [facility], Ct Scan - [address] [address] Social History Tobacco Use Types Packs/Day Years [...] Info) Description 04/21/2025 10:15 AM EST Appointment [facility], Bone Density - [address] [address] Brenda Villa MD [address] [place] [address], [address] [place], [place] [phone] documented as of this encounter Visit Diagnoses Not on filedocumented in this encounter Care Teams Hearse Driver Relationship Specialty Start Date End Date Aida Gallardo DO [address] [place] [address] PCP - General Internal Medicine 01/29/17 05/19/21 Aida Gallardo DO [address] [place] [address] PCP - General Internal Medicine 05/20/21 06/03/21 Brenda Villa MD [address] [place] [address] PCP - General Family Medicine 06/04/21 08/18/23 Brenda Villa MD [address] [place] [address] 7 [place] [address] PCP - General Family Medicine 08/19/23 Enrico Wagner MD [address] [place] [address] Consulting Provider Rheumatology 07/02/21 Brenda Villa MD [address] [place] [address] 7 [place] [address] [email or web address] Insurance Assigned Provider 07/11/23 documented as of this encounter Additional Source Comments The information contained in this document represents components of the legal health record. It is not the complete legal health record.[facility]
--- OUTSIDE RECORDS SUMMARY | 2024-08-22 11:50 | XMS_ITS | Encounter Summary ---
Author Organization [facility] Address [address] [place] [address] Phone Care Team Providers Care Manager Of Regulatory Affairs Name Role Phone Brenda Villa MD Primary Care Provider + Enrico Wagner MD Unavailable Brenda Villa MD Unavailable [phone] Brenda Villa MD Primary Care Provider + Encounter Details Date Type Department Care Team (Latest Contact Info) Description 06/06/2022 Transcribe Orders Virtual Department 30 [place] [address] Sebastien Luis MD [address] [place] [address] Aftercare following right hip joint replacement surgery [...] high school, GED, job training, learning the New Zealander language, technical skills, or developing parenting skills)? [...] I choose not to answer 07/01/2021 Comments No Sex and Gender Information Value Date Recorded Sex Assigned at Not on file Legal Sex Female 1:25 AM EST Gender Identity Not on file Sexual Orientation Not on file documented as of this encounter Plan of Treatment Upcoming Encounters Date Type Department Care Team (Late st Contact Info) Description 04/21/2025 10:15 AM EST Appointment [facility], Bone Density [address] [address] Brenda Villa MD [address] [place] [address], [facility] 7 [place] [address] [email or web address] documented as of this encounter Results * [...] Inferior femoral stem not included in the vowbw-op-viol. Visualized hardware is intact and in unchanged [...] arthroplasty. Inferiorfemoral stem not included in the [id number]-sd-stnj. Visualized hardware isintact and in unchanged alignment. No periprosthetic fracture or lucency. IMPRESSION: Bilateral total hip arthroplasties. No evidence of hardware complication. Sebastien Luis MD IMG XR PELVIS Final Result documented in this encounter Visit Diagnoses Diagnosis Aftercare following right hip joint replacement surgery- Primary Hip tendonitis, right Aftercare following right hip joint replacement surgery Hip tendonitis, right documented in this encounter Additional Health Concerns Assessment Noted Time PHQ-2 Depression Total Score: 1 01/27/20 22 9:24 AM EDT documented as of this encounter Care Teams Manager Of Regulatory Affairs Relationship Specialty Start Date End Date Brenda Villa MD PCP - General Family Medicine 06/04/21 08/18/23 Brenda Villa MD [address] [place] [address] 7 [place] [address] [email or web address] PCP - General Family Medicine 08/19/23 Enrico Wagner MD [email or web address] Consulting Provider Rheumatology 07/02/21 Brenda Villa MD [address] [place] [address] 7 [place] [address] [email or web address] Insurance Assigned Provider 07/11/23 documented as of this encounter Additional Source Comments The information contained in this document represents components of the legal health record. It is not the complete legal health record.[facility]
--- OUTSIDE RECORDS SUMMARY | 2024-08-22 11:50 | XMS_ITS | Encounter Summary ---
Author Organization [facility] Address [address] [place] [address] Phone Care Team Providers Care Trestle Mainternance Laborer Name Role Phone Brenda Villa MD Primary Care Provider + Enrico Wagner MD Unavailable Brenda Villa MD Unavailable [phone] Brenda Villa MD Primary Care Provider + Encounter Details Date Type Department Care Team (Late st Contact Info) Description 01/03/2022 Procedure Pass [facility] - [address] [place] [address] Social History Tobacco Use Types Packs/Day Years [...] high school, GED, job training, learning the Guatemalan language, technical skills, or developing parenting skills)? [...] 10:15 AM EST Appointment [facility], Bone [address] [address] Brenda Villa MD [address] [place] [address] 7 [place] [address] documented as of this encounter Visit Diagnoses Not on filedocumented in this encounter Additional Health Concerns Assessment Noted Time PHQ-2 Depression Total Score: 1 01/27/20 22 9:24 AM EDT documented as of this encounter Care Teams Trestle Mainternance Laborer Relationship Specialty Start Date End Date Brenda Villa MD PCP - General Family Medicine 06/04/21 08/18/23 Brenda Villa MD [address] [facility], [email or web address] 7 [place] [address] [email or web address] PCP - General Family Medicine 08/19/23 Enrico Wagner MD [email or web address] Provider Rheumatology 07/02/21 Brenda Villa MD [address] [place] [address] 7 [place] [address] [email or web address] Insurance Assigned Provider 07/11/23 documented as of this encounter Additional Source Comments The information contained in this document represents components of the legal health record. It is not the complete legal health record.[facility]
--- OUTSIDE RECORDS SUMMARY | 2024-08-22 11:50 | XMS_ITS | Encounter Summary ---
Author Organization [facility] Address [address] [place] [address] Phone Care Team Providers Care Welder/Installer Name Role Phone Enrico Wagner MD Unavailable Brenda Villa MD Unavailable [phone] Brenda Villa MD Primary Care Provider + Encounter Details Date Type Department Care Team (Late st Contact Info) Description 10/16/2023 Procedure Pass [facility]iology 30 [place] [address] Social History Tobacco Use Types Packs/Day Years [...] Info) Description 04/21/2025 10:15 AM EST Appointment [facility], Bone [address] [address] Brenda Villa MD [address] [place] [address] [email or web address] documented as of this encounter Visit Diagnoses Not on filedocumented in this encounter Additional Health Concerns Assessment Noted Time PHQ-2 Depression Total Score: 1 01/27/20 22 9:24 AM EDT documented as of this encounter Care Teams Welder/Installer Relationship Specialty Start Date End Date Brenda Villa MD 234 [facility] 7 [place] [address] [email or web address] PCP - General Family Medicine 08/19/23 Enrico Wagner MD [email or web address] Consulting Provider Rheumatology 07/02/21 Brenda Villa MD [address] [place] [address] 7 [place] [address] [email or web address] Insurance Assigned Provider 07/11/23 documented as of this encounter Additional Source Comments The information contained in this document represents components of the legal health record. It is not the complete legal health record.[facility]
--- OUTSIDE RECORDS SUMMARY | 2024-08-22 11:50 | XMS_ITS | Encounter Summary ---
Author Organization [facility] Address [address] [place] [address] Phone Care Team Providers Care Power Tong Operator Name Role Phone Enrico Wagner MD Unavailable Brenda Villa MD Unavailable [phone] Brenda Villa MD Primary Care Provider + Encounter Details Date Type Department Care Team (Late st Contact Info) Description 02/10/[address] [facility], [address] [place] [address] Social History Tobacco Use Types Packs/Day Years [...] Description 04/21/2025 10:15 AM EST Appointment [facility], [address] [address] Brenda Villa MD [address] [place] [address] [email or web address] documented as of this encounter Visit Diagnoses Not on filedocumented in this encounter Additional Health Concerns Assessment Noted Time PHQ-2 Depression Total Score: 1 01/27/20 22 9:24 AM EDT documented as of this encounter Care Teams Power Tong Operator Relationship Specialty Start Date End Date Brenda Villa MD [address] [facility] 7 [place] [address] PCP - General Family Medicine 08/19/23 Enrico Wagner MD [email or web address] Consulting Provider Rheumatology 07/02/21 Brenda Villa MD [address] [place] [address] 7 [place] [address] [email or web address] Insurance Assigned Provider 07/11/23 documented as of this encounter Additional Source Comments The information contained in this document represents components of the legal health record. It is not the complete legal health record.[facility]
--- OUTSIDE RECORDS SUMMARY | 2024-08-22 11:50 | XMS_ITS | Encounter Summary ---
Author Organization [facility] Address [address] [place] [address] Phone Care Team Providers Care Piece Work Checker Name Role Phone Aida Gallardo DO Primary Care Provider [phone] Aida Gallardo DO Primary Care Provider [phone] Brenda Villa MD Primary Care Provider + Enrico Wagner MD Unavailable Brenda Villa MD Unavailable [phone] Brenda Villa MD Primary Care Provider + Encounter Details Date Type Department Care Team (Late st Contact Info) Description 10/11/2018 Procedure Pass [address] [place] [address] Social History Tobacco Use Types Packs/Day Years [...] Info) Description 04/21/2025 10:15 AM EST Appointment [facility], Bone [facility] 30 [place] [address] Brenda Villa MD [address] [place] [address], [address] [place], [place] [id number] documented as of this encounter Visit Diagnoses Not on filedocumented in this encounter Care Teams Piece Work Checker Relationship Specialty Start Date End Date Aida Gallardo DO [address] [place] [address] PCP - General Internal Medicine 01/29/17 05/19/21 Aida Gallardo DO [address] [place] [address] PCP - General Internal Medicine 05/20/21 06/03/21 Brenda Villa MD [address] [place] [address] PCP - General Family Medicine 06/04/21 08/18/23 Brenda Villa MD [address] [place] [address], [facility] 7 [place] [address] [email or web address] PCP - General Family Medicine 08/19/23 Enrico Wagner MD [address] [place] [address] [email or web address] Consulting Provider Rheumatology 07/02/21 Brenda Villa MD [address] [place] [address], [address] [place] [address] [email or web address] Insurance Assigned Provider 07/11/23 documented as of this encounter Additional Source Comments The information contained in this document represents components of the legal health record. It is not the complete legal health record.[facility]
--- OUTSIDE RECORDS SUMMARY | 2024-08-22 11:50 | XMS_ITS | Encounter Summary ---
Author Organization [facility] Address [address] [place] [address] Phone Care Team Providers Care Technician'S Helper Name Role Phone Enrico Wagner MD Unavailable Brenda Villa MD Unavailable [phone] Brenda Villa MD Primary Care Provider + Encounter Details Date Type Department Care Team (Late st Contact Info) Description 10/02/2023 Telephone [facility] [address] [place], [place] [id number] Radha Daniel [place] [address] [place] [address] Social History Tobacco Use Types Packs/Day Years [...] Info) Description 04/21/2025 10:15 AM EST Appointment [address] [address] Brenda Villa MD [address] [place] [address] [email or web address] documented as of this encounter Visit Diagnoses Not on filedocumented in this encounter Additional Health Concerns Assessment Noted Time PHQ-2 Depression Total Score: 1 01/27/20 22 9:24 AM EDT documented as of this encounter Care Teams Technician'S Helper Relationship Specialty Start Date End Date Brenda Villa MD [address] [place] [address] 7 [place] [address] PCP - General Family Medicine 08/19/23 Enrico Wagner MD [email or web address] [email or web address] Provider Rheumatology 07/02/21 Brenda Villa MD [address] [place] [address] 7 [place] [address] Insurance Assigned Provider 07/11/23 documented as of this encounter Additional Source Comments The information contained in this document represents components of the legal health record. It is not the complete legal health record.[facility]
--- OUTSIDE RECORDS SUMMARY | 2024-08-22 11:50 | XMS_ITS | Encounter Summary ---
Author Organization [facility] Address [address] [place] [address] Phone Care Team Providers Care Military Cook Name Role Phone Aida Gallardo DO Primary Care Provider [phone] Aida Gallardo DO Primary Care Provider [phone] Brenda Villa MD Primary Care Provider + Enrico Wagner MD Unavailable Brenda Villa MD Unavailable Brenda Villa MD Primary Care Provider + Encounter Details Date Type Department Care Team (Late st Contact Info) Description 06/11/2018 Procedure Pass [address] [place] [address] Social History Tobacco Use Types Packs/Day Years [...] Info) Description 04/21/2025 10:15 AM EST Appointment [facility], [address] [address] Brenda Villa MD [address] [place] [address], [facility] 7 [place] [address] documented as of this encounter Visit Diagnoses Not on filedocumented in this encounter Care Teams Military Cook Relationship Specialty Start Date End Date Aida Gallardo DO [address] [place] [address] PCP - General Internal Medicine 01/29/17 05/19/21 Aida Gallardo DO [address] [place] [address] PCP - General Internal Medicine 05/20/21 06/03/21 Brenda Villa MD [address] [place] [address] PCP - General Family Medicine 06/04/21 08/18/23 Brenda Villa MD [address] [place] [address] 7 [place] [address] PCP - General Family Medicine 08/19/23 Enrico Wagner MD [address] [place] [address] [email or web address] Consulting Provider Rheumatology 07/02/21 Brenda Villa MD [address] [place] [address], [address] [place] [address] [email or web address] Insurance Assigned Provider 07/11/23 documented as of this encounter Additional Source Comments The information contained in this document represents components of the legal health record. It is not the complete legal health record.[facility]
--- OUTSIDE RECORDS SUMMARY | 2024-08-22 11:50 | XMS_ITS | Encounter Summary ---
Author Organization [facility] Address [address] [address] [place] [address] Phone Care Team Providers Care Fresco Artist Name Role Phone Brenda Villa MD Primary Care Provider + Enrico Wagner MD Unavailable Brenda Villa MD Unavailable [phone] Brenda Villa MD Primary Care Provider + Encounter Details Date Type Department Care Team (Late st Contact Info) Description 01/07/2023 Procedure Pass [facility] - [address] [place] [address] Social History Tobacco Use Types Packs/Day Years [...] high school, GED, job training, learning the Niuean language, technical skills, or developing parenting skills)? [...] EST Appointment [facility], Bone [address] [address] Brenda Villa MD [address] [place] [address], [address] [place] [address] [email or web address] documented as of this encounter Visit Diagnoses Not on filedocumented in this encounter Additional Health Concerns Assessment Noted Time PHQ-2 Depression Total Score: 1 01/27/20 22 9:24 AM EDT documented as of this encounter Care Teams Fresco Artist Relationship Specialty Start Date End Date Brenda Villa MD PCP - General Family Medicine 06/04/21 08/18/23 Brenda Villa MD [address] [facility] [address] [place] [address] [email or web address] PCP - General Family Medicine 08/19/23 Enrico Wagner MD [email or web address] Consulting Provider Rheumatology 07/02/21 Brenda Villa MD [address] [facility], [address] [place] [address] [email or web address] Insurance Assigned Provider 07/11/23 documented as of this encounter Additional Source Comments The information contained in this document represents components of the legal health record. It is not the complete legal health record.[facility]
--- OUTSIDE RECORDS SUMMARY | 2024-08-22 11:50 | XMS_ITS | Encounter Summary ---
Author Organization [facility] Address [address] [place] [address] Phone Care Team Providers Care Vending Manager Name Role Phone Brenda Villa MD Primary Care Provider + Enrico Wagner MD Unavailable Brenda Villa MD Unavailable [phone] Brenda Villa MD Primary Care Provider + Encounter Details Date Type Department Care Team (Latest Contact Info) Description 12/11/2021 Transcribe Orders Virtual Department 30 [place] [address] Sebastien Luis MD 65 [place] [address] Hip discomfort, right (Primary Dx) Social History [...] Info) Description 04/21/2025 10:15 AM EST Appointment [facility], Bone [address] [address] Brenda Villa MD [address] [place] [address], [facility] 7 [place] [address] documented as of this encounter Visit Diagnoses Diagnosis Hip discomfort, right- Primary documented in this encounter Additional Health Concerns Assessment Noted Time PHQ-2 Depression Total Score: 1 07/02/19 22 8:13 AM EDT documented as of this encounter Care Teams Vending Manager Relationship Specialty Start Date End Date Brenda Villa MD PCP - General Family Medicine 06/04/21 08/18/23 Brenda Villa MD [address] [facility] 7 [place] [address] [email or web address] PCP - General Family Medicine 08/19/23 Enrico Wagner MD [email or web address] Consulting Provider Rheumatology 07/02/21 Brenda Villa MD [address] [facility] [address] [place] [address] [email or web address] Insurance Assigned Provider 07/11/23 documented as of this encounter Additional Source Comments The information contained in this document represents components of the legal health record. It is not the complete legal health record.[facility]
--- OUTSIDE RECORDS SUMMARY | 2024-08-22 11:50 | XMS_ITS | Encounter Summary ---
Author Organization [facility] Address [address] [facility] [address] [place] [address] Phone Care Team Providers Care Retail Assistant Name Role Phone Enrico Wagner MD Unavailable Brenda Villa MD Unavailable Brenda Villa MD Primary Care Provider + Encounter Details Date Type Department Care Team (Late st Contact Info) Description 10/01/2023 Ancillary Orders [facility], X-Ray - [address] [place] [address] Crystal Cuenca PA [address] [place] [address] [email or web address] Spondylosis without myelopathy or radiculopathy, lumbar [...] Info) Description 04/21/2025 10:15 AM EST Appointment [facility], Bone Density [address] [address] Brenda Villa MD [address] [place] [address], [address] [place] [address] [email or web address] documented as of this encounter Results * XR LUMBOSACRAL SPINE 4 OR MORE VIEWS (10/01/2023 2:59 PM EDT) Anatomical Region Laterality Modality L-spine Computed Radiogr aphy 10/04/2023 11:1 3 AM EDT Impressions 10/04/2023 11:14 AM EDT Severe lumbar spine degenerative change. Narrative 10/04/2023 11:14 AM EDT XR LUMBOSACRAL SPINE 4 OR MORE VIEWS Referring clinician's provided indication for this examination in [facility]: Pain REQUESTED INDICATION: Pain COMPARISON: MRI LUMBAR [...] clinician's provided indication for this examination in [facility]:Pain REQUESTED INDICATION: Pain COMPARISON: MRI LUMBAR SPINE (BONE) WITHOUT CONTRAST FINDINGS: ALIGNMENT: Dextroconvex lumbar curvature. No spondylolisthesis. VERTEBRAE: Bones demineralized. Vertebral body heights preserved. DISCS: Disc heights preserved disc height loss and endplate sclerosis andmarginal osteophytes at all levels.. FACETS: Facet arthropathy L2-S1. PARASPINAL SOFT TISSUES: Partially visualized left total hiparthroplasty. IMPRESSION: Severe lumbar spine degenerative change. 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 Insurance Assigned Provider 07/11/23 documented as of this encounter Additional Source Comments The information contained in this document represents components of the legal health record. It is not the complete legal health record.[facility]
--- OUTSIDE RECORDS SUMMARY | 2024-08-22 11:50 | XMS_ITS | Encounter Summary ---
Author Organization [facility] Address [address] [facility] [address] [place] [address] Phone Care Team Providers Care Thread Drawer Name Role Phone Brenda Villa MD Primary Care Provider + Enrico Wagner MD Unavailable Brenda Villa MD Unavailable [phone] Brenda Villa MD Primary Care Provider + Encounter Details Date Type Department Care Team (Late st Contact Info) Description 12/11/2021 Ancillary Orders Virtual Department 30 [place] [address] Sebastien Luis MD 65 [place] [address] Hip discomfort, right Social History Tobacco Use [...] high school, GED, job training, learning the Botswanan language, technical skills, or developing parenting skills)? [...] 04/21/2025 10:15 AM EST Appointment [facility], [address] [address] Brenda Villa MD [address] [place] [address], [address] [place] [address] [email or web address] documented as [...] right. Sebastien Luis MD IMG XR PELVIS Final Result documented in this encounter Visit Diagnoses Diagnosis Hip discomfort, right Hip discomfort, right documented in this encounter Additional Health Concerns Assessment Noted Time PHQ-2 Depression Total Score: 1 07/02/19 22 8:13 AM EDT documented as of this encounter Care Teams Thread Drawer Relationship Specialty Start Date End Date Brenda Villa MD PCP - General Family Medicine 06/04/21 08/18/23 Brenda Villa MD [address] [place] [address], [address] [place] [address] PCP - General Family Medicine 08/19/23 Enrico Wagner MD [email or web address] Consulting Provider Rheumatology 07/02/21 Brenda Villa MD [address] [place] [address] 7 [place] [address] [email or web address] Insurance Assigned Provider 07/11/23 documented as of this encounter Additional Source Comments The information contained in this document represents components of the legal health record. It is not the complete legal health record.[facility]
--- OUTSIDE RECORDS SUMMARY | 2024-08-22 11:50 | XMS_ITS | Encounter Summary ---
Author Organization [facility] Address [address] [place] [address] Phone Care Team Providers Care Label Sewer Name Role Phone Brenda Villa MD Primary Care Provider + Enrico Wagner MD Unavailable Brenda Villa MD Unavailable [phone] Brenda Villa MD Primary Care Provider + Encounter Details Date Type Department Care Team (Latest Contact Info) Description 01/07/2023 Transcribe Orders Virtual Department [address] [place] [address] Brenda Villa MD [address] [place] [address], [facility] [address] [place], [place] [id number] [email or web address] Breast screening (Primary Dx) Social History Tobacco [...] high school, GED, job training, learning the Tongan language, technical skills, or developing parenting skills)? [...] Description 04/21/2025 10:15 AM EST Appointment [facility], Bone Density [address] [address] Brenda Villa MD [address] [place] [address], [address] [place] [address] [email or web address] documented as of this encounter Results * [...] dense, which could obscurea lesion on mammography. us Brenda Villa MD IMG MG EXAMS Final Re sult documented in this encounter Visit Diagnoses Diagnosis Breast screening- Primary Breast screening, unspecified Breast screening Breast screening, unspecified documented in this encounter Additional Health Concerns Assessment Noted Time PHQ-2 Depression Total Score: 1 01/27/20 9:24 AM EDT documented as of this encounter Care Teams Label Sewer Relationship Specialty Start Date End Date Brenda Villa MD [email or web address] PCP - General Family Medicine 06/04/21 08/18/23 Brenda Villa MD [address] [place] [address] [address] [place] [address] [email or web address] PCP - General Family Medicine 08/19/23 Enrico Wagner MD [email or web address] Provider Rheumatology 07/02/21 Brenda Villa MD [address] [place] [address] [address] [place] [address] [email or web address] Insurance Assigned Provider 07/11/23 documented as of this encounter Additional Source Comments The information contained in this document represents components of the legal health record. It is not the complete legal health record.[facility]
--- NOTE | 2024-08-22 11:53 | A.SPINEOV_ITS ---
Intake Visit Reasons: CT follow up Intake Note: Ms. Powell is here today to discuss the results of her CT [place]. [employer] Regenerator Operator Required: No Allergies codeine Allergy (Severe, Verified 06/20/24 13:03) Confusion nitrofurantoin [From Macrobid] Allergy (Severe, Verified 06/20/24 13:03) Confusion Assessment & Plan Assessment & Plan (1) Lumbar degenerative disc disease: Code(s): M51.369 - Other intervertebral disc degeneration, lumbar region without mention of lumbar back pain or lower extremity pain Category: Medical Plan Mrs Powell came back today to review her CT scan done at [place]. It does not show complete auto fusion of the L4-5 segment. There is [id number] endplate contact at L4-5 and L5-S1. I explained to the patient that typically in order to treat this Dr. Sharma would do lumbar fusion surgery. Right now the patient does not wish to consider that extensive of a procedure. She is going to look into getting a traction machine and continuing to try to just be as active as she can tolerate the pain. If something changes I would be happy to see her down the road. Total amount of time spent in this visit was 20 minutes in discussion of symptoms, CT scan imaging results and subsequent plan of care Kendall Sharma MD,PhD [facility] Coding Level of Care Code Est Pt Level 3 (67954) Diagnoses Lumbar degenerative disc disease M51.369
== END 2024-08-22 12:42 | disposition home or self-care (01) ==
LOC: HO.HNS 11:02
PROVIDERS: PCP Family Medicine; Visit Provider Physician Assistant
DX: M51.369 Other intervertebral disc degeneration, lumbar region without mention of lumbar back pain or lower extremity pain (principal)
CPT/HCPCS: 99213

== ENCOUNTER → 2024-08-22 11:01 | Outpatient (BNVA) | payer MEDICARE, OTHER, SELFPAY | PROVIDERS: PCP Family Medicine; Visit Provider Physician Assistant | DX: M51.369 Other intervertebral disc degeneration, lumbar region without mention of lumbar back pain or lower extremity pain (principal) | CPT/HCPCS: 99212 ==